=== PATIENT | female | born 1985 | race Caucasian/White ===

== ENCOUNTER 2024-07-01 11:05 | Emergency (ER) | payer MEDICARE, MEDICAID, SELFPAY ==
[2024-07-01 11:07] VITALS: BP 110/71; PULSE 71; RESP 13; TEMP 36.7; O2SAT 97; BMI 19.5
[2024-07-01 11:30] VITALS: BP 117/52; PULSE 62; O2SAT 97
[2024-07-01 11:50] LABS: Microscopic, Urine URINE MICROSCOPIC (MICROSCOPIC)
[2024-07-01 11:51] LABS: Appearance,Urine CLEAR (Clear); Bilirubin,Urine Negative (Negative); Blood, Urine TRACE-I (Negative); Color,Urine YELLOW (Yellow); Glucose,Urine (UA) Negative (Negative); Ketones,Urine Negative (Negative); Leukocyte Esterase,Urine 1+ (Negative); Nitrate,Urine POSITIVE (Negative); PH,Urine 6.5 (5.0-8.5); Protein,Urine TRACE (Negative)
[2024-07-01 11:53] LABS: Urine Pregnancy, HCG Qual. Negative (Negative)
[2024-07-01] MEDS: ONDANSETRON 4MG/2ML VIAL 4 MG IV (11:55)
[2024-07-01] MEDS: KETOROLAC 30MG/ML VIAL 15 MG IV (11:55)
[2024-07-01 11:57] LABS: Albumin Level 3.6 g/dl (3.5-5.0); Chloride 106 mmol/L (98-107); Sodium 138 mmol/L (136-145)
[2024-07-01 11:58] LABS: Basophils % 0.8 % (0.1-2.0); Hematocrit 34.4 % (37.0-47.0); Hemoglobin 11.6 g/dL (12.2-16.2); Lymphocytes # 2.7 K/mm3 (0.7-4.5); Lymphocytes % 50.4 % (10-50); Mean Corpuscular HGB Conc 33.9 g/dL (31.8-35.4); Mean Corpuscular Hemoglobin 31.2 pg (27.0-31.2); Mean Corpuscular Volume 91.9 fl (81-99); Mean Platelet Volume 7.6 fl (7.4-10.4); Monocytes # 0.2 K/mm3 (0.1-1.0); Monocytes % 4.4 % (1.7-9.3); Neutrophils # 2.4 K/mm3 (1.8-7.8); Neutrophils % 44.4 % (37.0-80.0); Platelet Count 184 K/mm3 (142-424); Potassium 3.9 mmoL/L (3.5-5.1); Red Blood Count 3.74 M/mm3 (4.20-5.40); Red Cell Distribution Width 14.1 % (11.5-17.5); White Blood Count 5.3 K/mm3 (4.8-10.8)
[2024-07-01 12:00] VITALS: BP 108/64; PULSE 51; O2SAT 99
[2024-07-01 12:00] LABS: Alanine Aminotransferase 27 U/L (12-78); Albumin/Globulin Ratio 1.5 (1.1-1.8); Alkaline Phosphatase 82 U/L (38-126); Anion Gap 8.9 mEq/L (5-15); Aspartate Amino Transferase 41 U/L (14-36); Bilirubin,Total 0.9 mg/dl (0.2-1.3); Blood Urea Nitrogen 14 mg/dl (7-17); Carbon Dioxide 27 mmol/L (22.0-30.0); Creatinine Clearance Estimated 76 mL/min (50-200); Estimated Glomerular Filt Rate 92 ml/min (>60); GFR (African American) 112 ML/MIN (>60); Globulin 2.4 g/dL (1.3-3.2)
[2024-07-01 12:01] LABS: Calcium 8.5 mg/dl (8.4-10.2); Glucose 96 mg/dl (74-100)
[2024-07-01 12:04] LABS: Bacteria,Urine 4+ /lpf
[2024-07-01 12:10] LABS: MANUAL DIFFERENTIAL MANUAL DIFFERENTIAL (MANUAL DIFF)
[2024-07-01] MEDS: CEFDINIR 300MG CAPSULE 300 MG PO (12:26)
[2024-07-01 12:30] VITALS: BP 111/69; PULSE 46; O2SAT 100
[2024-07-01 12:32] VITALS: BP 111/69; PULSE 50; RESP 20; TEMP 36.7; O2SAT 99
[2024-07-01 12:36] LABS: Lymphocytes % 56 % (10-50); Monocytes % 5 % (2-9); Neutrophils % 39 % (42-76); Total Cells Counted 100
[2024-07-01 12:37] LABS: Platelet Estimate Normal; RBC Morphology Normal
--- NOTE | 2024-07-01 13:19 | HMH.EDGENADL ---
Discharge Plan Disposition Patient Disposition: Home, Self-Care Condition: Good Prescriptions Prescriptions: New ondansetron 4 mg tablet,disintegrating 4 mg PO Q8H PRN (Reason: nausea and vomiting) 4 Days Qty: 12 0RF cefdinir 300 mg capsule 300 mg PO BID 10 Days Qty: 20 0RF Referrals Follow up/Referrals: Provider,Referral, [Primary Care Provider] - See instructions Activity Restrictions/Add. Instructions Additional Instructions/Restrictions: You were evaluated in the emergency department today and diagnosed with a urinary tract infection. Please tow picker your prescription for antibiotics and take the full course as prescribed. Take Tylenol and ibuprofen as well as the Azo as needed for symptoms. Hydrate. dietary supervisor your prescription for Zofran and take as needed for nausea and vomiting. Return to the emergency department for new or worsening symptoms. Clinical Impressions Clinical Impression: UTI (urinary tract infection) Stand Alone Forms Stand Alone Forms: Work/School Release Instructions Patient Instructions: DI for Urinary Tract Infection (UTI) Print Language Print Language: Welsh Discharge ED Provider: Dawna Blanchard General Adult HPI General Chief complaint: Urogenital-Female Stated complaint: pain R side neck and lower back nausea possible UT Time Seen by Provider: 07/01/24 11:36 Mode of Arrival: Ambulatory Source of Information: Patient Limitations: No Limitations Description of Symptoms (Recalled from ER Triage Doc. by RN): pt presents to ED with c/o burning with urination ongoing for the past week. pt had gastric bypass surgery approx 1 year ago, and since has had issue with staying hydrated, pt states that she has been drinking less water than usual but no real reason. History of Present Illness HPI narrative: This patient is a 39-year-old female who has a history of bariatric surgery presenting to the emergency department for evaluation with concern for burning when she pees. She notes that this started a week ago. She states she picked up Azo and has been taking it, but it only helps temporarily and then the symptoms come back. She also notes some low back pain that is across the middle of her back and nausea. No fevers, chills, or other concerns. Her last dose of Azo was last night. Related Data Previous Rx's ?Medication ?Instructions ?Recorded cefdinir 300 mg capsule 300 mg PO BID 10 days #20 caps 07/01/24 ondansetron 4 mg disintegrating 4 mg PO Q8H PRN nausea and 07/01/24 tablet vomiting 4 days #12 tabs Allergies Allergy/AdvReac Type Severity Reaction Status Date / Time aspirin Allergy Verified 07/01/24 11:20 NSAIDS (Non-Steroidal Allergy Verified 07/01/24 11:20 Anti-Inflamma PFSH [facility] Disclaimer: The information contained in this section may have been updated after the patient was seen, as this information can be updated by other users. Social History Smoking Status: Never smoker alcohol intake: never current occupational status: employed Travel in the last 8 weeks: None ROS Obtained: Yes All systems reviewed & no additional complaints except as documented Physical Exam General General appearance: alert and in no apparent distress Head Head exam: atraumatic and normocephalic Eye Eye exam: Present normal appearance, PERRL and EOMI ENT ENT exam: Present normal exam, normal oropharynx, mucous membranes moist and normal external ear exam Neck Neck exam: Present normal inspection, full ROM and trachea midline; Absent tenderness Chest Chest inspection: Present normal inspection and symmetric chest wall rise; Absent tenderness Respiratory Respiratory exam: Present normal lung sounds bilaterally; Absent respiratory distress, wheezes, stridor or accessory muscle use Cardiovascular Cardiovascular exam: Present regular rate and normal rhythm Abdominal Exam Abdominal exam: Present soft; Absent distention, tenderness or guarding Extremities Exam Extremities exam: Present normal inspection, full ROM and normal capillary refill; Absent tenderness or edema Back Exam Back exam: Present normal inspection and full ROM; Absent tenderness Neurological Exam Neurological exam: Present alert, oriented X3, CN II-XII intact and normal gait; Absent motor sensory deficit Psychiatric Psychiatric exam: Present normal affect and normal mood Skin Skin exam: Present warm and dry Medical Decision Making Medical Records Medical records reviewed: Yes I reviewed the patient's medical records. Screening: Per USPSTF and CDC recommendations, given the prevalence of disease in our region, it is our hospital?s policy to screen for HIV and viral Hepatitis for all patients aged 18 and over and those with ongoing risk factors. Dejon Inquiry Pt receiving controlled substance: No Vital Signs: 07/01/24 11:07 07/01/24 11:30 07/01/24 12:00 Temperature 98.0 F Temperature Source Oral Pulse Rate 62 51 L Pulse Rate [Left Radial] 71 Respiratory Rate 13 Blood Pressure 117/52 L 108/64 L Blood Pressure [Right Arm] 110/71 Blood Pressure Mean 73 Blood Pressure Mean [Right Arm] 84 02 Sat by Pulse Oximetry 97 97 99 Oxygen Delivery Method Room Air Room Air 07/01/24 12:30 07/01/24 12:32 Temperature 98.0 F Temperature Source Pulse Rate 46 L 50 L Pulse Rate [Left Radial] Respiratory Rate 20 Blood Pressure 111/69 111/69 Blood Pressure [Right Arm] Blood Pressure Mean 80 Blood Pressure Mean [Right Arm] 02 Sat by Pulse Oximetry 100 Oxygen Delivery Method Room Air Room Air Lab Data Lab results reviewed: Yes I reviewed the patient's lab results. Lab Results 07/01/24 11:08: Urine Color Yellow, Urine Appearance Clear, Urine pH 6.5, Ur Specific [place] 1.010, Urine Protein Trace, Urine Glucose (UA) Negative, Urine Ketones Negative, Urine Blood Trace-i, Urine Nitrate Positive, Urine Bilirubin Negative, Urine Urobilinogen 1.0, Ur Leukocyte Esterase 1+ A, Urine RBC 5-10, Urine WBC 10-20, Ur Squamous Epith Cells 3-5, Urine Bacteria 4+, Urine HCG, Qual Negative 07/01/24 11:20: WBC 5.3, RBC 3.74 L, Hgb 11.6 L, Hct 34.4 L, MCV 91.9, MCH 31.2, MCHC 33.9, RDW 14.1, Plt Count 184, MPV 7.6, Neut % (Auto) 44.4, Lymph % (Auto) 50.4 H, Taliaferro % (Auto) 4.4, Eos % (Auto) 0.0 L, Baso % (Auto) 0.8, Neut # (Auto) 2.4, Lymph # (Auto) 2.7, Tal[place]ferro # (Auto) 0.2, Eos # (Auto) 0.0, Baso # (Auto) 0.0, Total Counted 100, Neutrophils % (Manual) 39 L, Lymphocytes % (Manual) 56 H, Monocytes % (Manual) 5, Platelet Estimate Normal, RBC Morphology Normal, Sodium 138, Potassium 3.9, Chloride 106, Carbon Dioxide 27, Anion Gap 8.9, BUN 14, Creatinine 0.70, Estimated Creat Clear 76, Estimated GFR 92, Est GFR ( Amer) 112, Glucose 96, Calcium 8.5, Total Bilirubin 0.9, AST 41 H, ALT 27, Alkaline Phosphatase 82, Total Protein 6.0 L, Albumin 3.6, Globulin 2.4, Albumin/Globulin Ratio 1.5 07/01/24 11:20 07/01/24 11:20 Orders (Tests/Meds): ED MEDICATIONS Discontinued Medications Generic Name Dose Route Start Last Admin Trade Name Eugenio PRN Reason Stop Dose Admin Cefdinir 300 mg 07/01/24 12:20 07/01/24 12:26 Cefdinir 300mg Capsule PO 07/01/24 12:21 300 mg ONCE ONE Administration Ketorolac Tromethamine 15 mg 07/01/24 11:51 07/01/24 11:55 Ketorolac 30mg/Ml Vial IV 07/01/24 11:52 15 mg ONCE ONE Administration Ondansetron HCl 4 mg 07/01/24 11:51 07/01/24 11:55 Ondansetron 4mg/2ml Vial IV 07/01/24 11:52 4 mg ONCE ONE Administration ORDERS Category Date Time Status Complete Blood Count Auto Diff Stat Lab 07/01/24 11:20 Completed Comprehensive Metabolic Panel Stat Lab 07/01/24 11:20 Completed UA [Urinalysis and Microscopic] Stat Lab 07/01/24 11:08 Completed Urine , HCG Qual. Stat Lab 07/01/24 11:08 Completed Urine Culture Stat Micro 07/01/24 11:08 Received Medical Decision Narrative: In summary, this patient is a 39-year-old female presenting to the Emergency Department for evaluation of burning when she pees and increased frequency. Differential diagnoses considered include but are not limited to cystitis, pyelonephritis, ureterolithiasis. Ruling out the most morbid conditions drove assessment. On exam, the patient is lying in bed in no acute distress with benign abdominal exam. No significant CVA tenderness. She does have low back pain across her lower back, but nothing localizes to one side. No fevers, chills, or other concerns. I feel she likely has a urinary tract infection. Urinalysis was obtained and is consistent with this. She could still have some Azo in her system, but based on her symptoms, we will plan to treat. Urine culture was sent and is pending. Basic labs were obtained including CBC and CMP which are reassuring with no significant change in kidney function and no significant leukocytosis. Given this, I feel the patient is appropriate for discharge home with prescriptions for cefdinir and Zofran to treat urinary tract infection. She was given strict return precautions and instructions for close follow-up. Patient was discharged after all questions were answered. Critical Care Critical Care Time Critical Care Time: No
== END 2024-07-01 12:33 | disposition home or self-care (01) ==
PROVIDERS: Emergency Provider Emergency Medicine
DX: N39.0 Urinary tract infection, site not specified (principal); R30.9 Painful micturition, unspecified; M54.50 Low back pain, unspecified; R11.0 Nausea; M54.2 Cervicalgia
CPT/HCPCS: 80053; 81001; 81025; 85007; 85025; 85027; 87086; 87088; 87186; 96374; 96375; 99283; J1885; J2405

== ENCOUNTER 2024-07-30 10:44 | Outpatient (POV) | payer MEDICARE, MEDICAID, SELFPAY ==
[2024-07-30 11:38] VITALS: BP 138/69; PULSE 61; RESP 16; O2SAT 100; BMI 18.9
--- NOTE | 2024-07-30 12:16 | EXP.PAIN.OV ---
HPI Data of Consult Patient: new to practice Consult date: 07/30/24 Requesting Physician: Dawna Hendricks APRN Primary Care Provider: Referral Provider, MD Consult Narrative Reason for consult: Chronic neck and back pain History of present illness: Ms. Daniels is a 39 year old female who presents today as a new patient. She is a referral from [facility]. Today she rates her pain a 10 out of 10. Patient states she has chronic pain throughout her neck mid back and low back patient states this is going on for years and progressively worsen. Patient describes it as a constant aching, throbbing sensation. She states she has tried oral medications including gabapentin along with heat and ice and topicals. Patient states she has also seen neurosurgery in [place] and that she was not a surgical candidate. Patient has tried multiple injections from other pain management facilities in out of [place] and states they never gave significant relief. Patient states that she was told multiple times that the pain pump was her best option however where she is recently moved she is trying to reestablish care with the pain clinic and would like to proceed forward with possibility of a pump. Patient does have a history of fibromyalgia, bipolar and multiple personality disorder. Patient has also had gastric bypass surgery in the past. Patient states all of her imaging was done at [facility]. Her Dejon does not have any scheduled medications on that due to previous [place] residence. CC: Dawna Hendricks APRN [facility] Disclaimer: The information contained in this section may have been updated after the patient was seen, as this information can be updated by other users. Medical History (Updated 07/30/24 @ 12:25 by Dawna Hendricks APRN) Bipolar 1 disorder Surgical History (Updated 07/30/24 @ 11:46 by Stacy Nj RN) Gastric bypass status for obesity Social History (Updated 07/30/24 @ 11:46 by Stacy Nj RN) Smoking Status: Never smoker alcohol intake: never substance use type: marijuana current occupational status: other Travel in the last 8 weeks: None Review of Systems Review of Systems Review of systems:: pertinent systems reviewed and negative unless documented below Review of systems (narrative): Review of Systems: General: No recent weight changes, no fever, no sleep disturbances Respiratory: No cough, no shortness of air, no recurring pulmonary infections Cardiovascular/peripheral vascular: No chest pain, no palpitations, no edema, no shortness of breath Gastrointestinal: No new onset incontinence, normal bowel movements reported Genitourinary: No new onset incontinence Musculoskeletal: Neck pain, low back pain Psychiatric: [Normal mood/affect] Neurological: [Denies weakness in extremities], [denies balance issues] Meds Home Medications and Allergies Home Medications ?Medication ?Instructions ?Recorded ?Confirmed ?Type duloxetine 30 mg capsule,delayed 90 mg PO DAILY 07/30/24 07/30/24 History release lamotrigine 25 mg tablet 50 mg PO BID mood 07/30/24 07/30/24 History New Prescriptions to Start Prescriptions: Allergies Allergy/AdvReac Type Severity Reaction Status Date / Time aspirin Allergy Verified 07/01/24 11:20 NSAIDS (Non-Steroidal AdvReac Verified 07/30/24 11:48 Anti-Inflamma Objective Vital signs: Pulse Resp BP Pulse Ox O2 Del Method 61 16 138/69 100 Room Air 07/30/24 11:38 07/30/24 11:38 07/30/24 11:38 07/30/24 11:38 07/30/24 11:38 Narrative: Physical Exam: General: Alert and oriented x3, no acute distress, pleasant and cooperative Lungs: Respirations even and unlabored, symmetrical chest expansion Eyes: PERRL Musculoskeletal: Flexion and extension of lumbar [spine] somewhat guarded secondary to pain, extreme point tenderness along lower lumbar spine Neurological: Speech clear, no gross sensory deficit Assessment and Plan *Assessment and plan (1) Chronic pain syndrome: Status: Acute Category: Medical Code(s): G89.4 - Chronic pain syndrome (2) Neck pain: Status: Acute Category: Medical Code(s): M54.2 - Cervicalgia (3) Back pain: Status: Acute Category: Medical Code(s): M54.9 - Dorsalgia, unspecified Plan Patient has tried and failed conservative therapy including multiple injections in the past from previous pain management's with minimal improvement. I did discuss with the patient that she may be a potential candidate of a intrathecal pain pump trial. Risk and benefits and educational handouts were given at today's visit. She would like to proceed forward with this plan of care. Patient will be scheduled for a psychological evaluation and if she is deemed an appropriate candidate we will proceed forward with the pump trial at a later date. Patient will return to clinic in 1 month for reevaluation of symptoms and plan of care. Patient has been instructed to contact the clinic with any concerns before the next appointment. Dr. Duncan has reviewed this note and agrees with this plan of care. This note was dictated using voice recognition software and make contain errors or omissions. All injections are used with Lidocaine or Bupivacaine and Depo Medrol.
== END 2024-07-30 23:59 | disposition home or self-care (01) ==
LOC: SC.PAIN 10:47
PROVIDERS: Visit Provider Nurse Practitioner Family
DX: G89.4 Chronic pain syndrome (principal); M54.2 Cervicalgia; M54.9 Dorsalgia, unspecified
CPT/HCPCS: 99202; G0463

== ENCOUNTER 2024-08-28 13:42 | Outpatient (POV) | payer MEDICARE, MEDICAID, SELFPAY ==
[2024-08-28 14:47] VITALS: BP 125/59; PULSE 69; RESP 16; TEMP 36.4; O2SAT 98; BMI 19.2
--- NOTE | 2024-08-28 15:24 | EXP.PAIN.SOA ---
[facility] Disclaimer: The information contained in this section may have been updated after the patient was seen, as this information can be updated by other users. Medical History Bipolar 1 disorder Surgical History Gastric bypass status for obesity Social History Smoking Status: Never smoker alcohol intake: never substance use type: marijuana current occupational status: other Travel in the last 8 weeks: None PM Subjective & Objective Subjective Subjective:: Patient is a pleasant 39-year-old female who presents today for follow-up of her psychological evaluation. Today she rates her pain a 10 out of 10. She denies any new trauma or injury. She states the pain is just constant as she stated at our last visit. Patient did complete her psychological her evaluation and was wanting to proceed forward with the pump trial. Her Dejon has been reviewed and is appropriate. Review of Systems: General: No recent weight changes, no fever, no sleep disturbances Respiratory: No cough, no shortness of air, no recurring pulmonary infections Cardiovascular/peripheral vascular: No chest pain, no palpitations, no edema, no shortness of breath Gastrointestinal: No new onset incontinence, normal bowel movements reported Genitourinary: No new onset incontinence Musculoskeletal: Low back pain, neck pain Psychiatric: [Normal mood/affect] Neurological: [Denies weakness in extremities], [denies balance issues] Pain at rest (0-10 scale): 10 Objective Objective:: Physical Exam: General: Alert and oriented x3, no acute distress, pleasant and cooperative Lungs: Respirations even and unlabored, symmetrical chest expansion Eyes: PERRL Musculoskeletal: Flexion and extension of lumbar [spine] somewhat guarded secondary to pain, [antalgic gait noted] Neurological: Speech clear, no gross sensory deficit Has patient had previous pain injection?: No Conservative treatment options previously tried: Home exercise plan Length of treatment: Longer than 12 weeks Meds Home Medications and Allergies Home Medications ?Medication ?Instructions ?Recorded ?Confirmed ?Type duloxetine 30 mg capsule,delayed 90 mg PO DAILY 07/30/24 08/28/24 History release lamotrigine 25 mg tablet 50 mg PO BID mood 07/30/24 08/28/24 History New Prescriptions to Start Prescriptions: Allergies Allergy/AdvReac Type Severity Reaction Status Date / Time aspirin Allergy Verified 07/01/24 11:20 NSAIDS (Non-Steroidal AdvReac Verified 07/30/24 11:48 Anti-Inflamma Assessment and Plan *Assessment and plan (1) Back pain: Status: Acute Category: Medical Code(s): M54.9 - Dorsalgia, unspecified (2) Neck pain: Status: Acute Category: Medical Code(s): M54.2 - Cervicalgia Plan Patient was counseled that the psychological evaluation is not yet in our computer system however the provider did call our office to let us know that she did not pass this evaluation. Patient was counseled that I cannot give specifics on what all concerns she had however I would recommend she follow-up with her primary care to see if they can make any adjustments or additions to her current medications that she takes for depression, anxiety and bipolar. Patient was counseled that we can always revisit or try again for the psychological evaluation in 6 months. Patient was counseled that we can try injection therapy however at our last visit she did tell us that she was not interested in this option. Patient does still state that she does not want to try this again as she has been through all this in the past. Patient has also had gastric bypass and cannot have any NSAIDs. We did discuss over Tylenol arthritis and things such as lidocaine patches however she says that she has tried that all with no additional improvement. Patient was counseled that we will follow-up with her after she has had updated appointments with her primary care and see if there were any medication changes. Patient will return to clinic in 3 months for reevaluation of symptoms and plan of care. Patient agrees with this plan. Patient has been instructed to contact the clinic with any concerns before the next appointment. Dr. Duncan has reviewed this note and agrees with this plan of care. This note was dictated using voice recognition software and make contain errors or omissions. All injections are used with Lidocaine, Bupivacaine and Depo Medrol. Occasionally urine drug screen is needed to verify patient's compliance with our office pain contract. This is ordered based off specific treatments related to chronic pain with the potential to abuse certain medications.
== END 2024-08-28 23:59 | disposition home or self-care (01) ==
PROVIDERS: PCP Nurse Practitioner Family; Visit Provider Nurse Practitioner Family
DX: M54.9 Dorsalgia, unspecified (principal); M54.2 Cervicalgia
CPT/HCPCS: 99212; G0463

== ENCOUNTER 2024-10-01 14:15 | Outpatient (CLI) | payer MEDICARE, MEDICAID, SELFPAY ==
[2024-10-01 15:13] LABS: Basophils % 0.5 % (0.1-2.0); Eosinophils % 0.2 % (0.1-12.0); Hematocrit 42.7 % (37.0-47.0); Hemoglobin 14.1 g/dL (12.2-16.2); Lymphocytes # 2.8 K/mm3 (0.7-4.5); Lymphocytes % 48.9 % (10-50); Mean Corpuscular Hemoglobin 30.9 pg (27.0-31.2); Mean Corpuscular Volume 93.4 fl (81-99); Mean Platelet Volume 9.9 fl (7.4-10.4); Monocytes # 0.4 K/mm3 (0.1-1.0); Neutrophils # 2.6 K/mm3 (1.8-7.8); Neutrophils % 44.2 % (37.0-80.0); Platelet Count 193 K/mm3 (142-424); Red Blood Count 4.57 M/mm3 (4.20-5.40); Red Cell Distribution Width 12.9 % (11.5-17.5); White Blood Count 5.8 K/mm3 (4.8-10.8)
[2024-10-01 15:31] LABS: D-Dimer 0.48 ug/mL (0.0-0.5)
[2024-10-01 15:58] LABS: Albumin Level 4.9 g/dl (3.5-5.0); Chloride 102 mmol/L (98-107); Sodium 141 mmol/L (136-145)
[2024-10-01 15:59] LABS: Potassium 4.4 mmoL/L (3.5-5.1)
[2024-10-01 16:01] LABS: Alanine Aminotransferase 55 U/L (12-78); Anion Gap 13.4 mEq/L (5-15); Aspartate Amino Transferase 80 U/L (14-36); Bilirubin,Unconjugated 1.5 mg/dL (0.0-1.1); Blood Urea Nitrogen 16 mg/dl (7-17); Carbon Dioxide 30 mmol/L (22.0-30.0); Cholesterol 170 mg/dl (140-200); Estimated Glomerular Filt Rate 110 ml/min (>60); GFR (African American) 133 ML/MIN (>60); Total Protein,Serum 7.4 g/dl (6.3-8.2); Triglycerides 98 mg/dl (30-150); VLDL Cholesterol 20 mg/dL (0-40)
[2024-10-01 16:02] LABS: Alkaline Phosphatase 100 U/L (38-126); Bilirubin,Indirect 1.5 mg/dL (0.0-0.9); Bilirubin,Total 1.5 mg/dl (0.2-1.3); Calcium 9.6 mg/dl (8.4-10.2); Chol/HDL Ratio 1.8 (1-3.5); Glucose 80 mg/dl (74-100); HDL Cholesterol 95 mg/dl (40-60); Magnesium 2.2 mg/dl (1.6-2.3)
[2024-10-01 16:12] LABS: NT Pro Brain Natriuretic Pep. 37.9 pg/mL (0-125)
[2024-10-01 16:22] LABS: Free T4 (Free Thyroxine) 1.01 ng/dl (0.78-2.19)
[2024-10-01 16:33] LABS: Thyroid Stimulating Hormone 1.21 uIU/mL (0.465-4.68)
== END 2024-10-01 23:59 | disposition home or self-care (01) ==
LOC: LAB 14:16
PROVIDERS: PCP Nurse Practitioner Family; Visit Provider Internal Medicine
DX: R55 Syncope and collapse (principal); R07.9 Chest pain, unspecified; R06.00 Dyspnea, unspecified; R00.1 Bradycardia, unspecified
CPT/HCPCS: 36415; 80048; 80061; 80076; 83735; 83880; 84439; 84443; 85025; 85378; 93225; 93227

== ENCOUNTER 2024-10-05 10:47 | Outpatient (CLI) | payer MEDICARE, MEDICAID, SELFPAY | END 2024-10-05 23:59 | disposition home or self-care (01) | LOC: RT 10:49 | PROVIDERS: Visit Provider Internal Medicine | DX: R55 Syncope and collapse (principal); R00.1 Bradycardia, unspecified; R06.00 Dyspnea, unspecified; R07.9 Chest pain, unspecified | CPT/HCPCS: 93270 ==

== ENCOUNTER 2024-10-09 08:51 | Outpatient (CLI) | payer MEDICARE, MEDICAID, SELFPAY ==
--- NOTE | 2024-10-09 08:52 | CA_ITS ---
APPROVED REPORT EXAM: Comprehensive 2D, Doppler, and color-flow Echocardiogram Clinical Research Physician: Jade Matthew RDCS Ht: 5 ft 0 in Wt: 97lbs BSA: 1.37 BP: 116/72 mmHg Indications: CP,BRADYCARDIA,SOA M-Mode Dimensions RVDd 1.19 cm (0.9-2.6) LA Diam 3.47 cm (1.9-4.0) LVDd 4.81 cm (3.5-5.7) LVDs 3.39 cm (3.5-5.7) IVSd 0.58 cm (0.6-1.1) PWd 0.64 cm (0.6-1.1) EF (Teich) 56.40% FS 29.50% EDV (Teich) 108.00 mL TAPSE 2.16 (<1.7) ESV (Teich) 47.10 mL LV Diastology E Decel Time 197 (160-240 msec) E/A Ratio 1.6 Mitral Valve MV E Max Leander. 82.0 (40-130 cm/s) MV A Velocity 51.0 (40-130 cm/s) E/A Ratio 1.60 MV PHT 58.0 ms Tricuspid Valve TR P. Velocity 216.00 cm/s RAP Estimate 10.00 mmHg RVSP 28.60 mmHg Left Ventricle The left ventricle is normal size. The left ventricular systolic function is normal. The left ventricular ejection fraction is within the normal range. There is normal left ventricular wall thickness. There is normal LV segmental wall motion. The left ventricular diastolic function is normal. LVEF is 55%. Right Ventricle The right ventricle is normal size. The right ventricular systolic function is normal. Atria Left atrium is mildly dilated. Right atrium is mildly dilated. There is no Doppler evidence of interatrial shunt. Aortic Valve The aortic valve is trileaflet. The aortic valve opens well. There is no aortic valvular stenosis. No aortic regurgitation is present. Mitral Valve The mitral valve is normal in structure. No evidence of mitral valve stenosis. Trace mitral regurgitation. Tricuspid Valve Tricuspid valve is grossly normal in structure and function. Trace tricuspid regurgitation. Pulmonic Valve The pulmonary valve is normal in structure. Mild pulmonic regurgitation. Great Vessels The aortic root is normal in size. The ascending aorta is normal in size. IVC is normal in size and collapses >50% with inspiration. Pericardium There is no pericardial effusion. Other Information Study Quality: Adequate Conclusion Normal biventricular systolic function. Mild PI. Electronically signed by : Angie Lyons MD 10/15/2024 11:09:26
--- NOTE | 2024-10-09 08:52 | CT_ITS ---
APPROVED REPORT Home Health Care Provider: CLINICAL INDICATION Chest Pain TECHNIQUE Image Acquisition: A 128 slice MDCT scanner ([employer] Richmediaa View) was used for data acquisition. A noncontrast coronary calcium scan was performed. A CT attenuation threshold of 130 Hounsfield units (HU) was used for the detection of calcium in contiguous voxels of 1 sq mm in area to be counted as individual lesions. Bolus tracking in the ascending aorta with a threshold of 180 HU was performed. Immediately afterwards, ECG synchronized cardiac CT was then performed from the cardiac base to apex using retrospective gating with ECG tube current modulation. A total of 85 mL of Isovue 370 mg/mL contrast medium was administered at 5 mL/sec followed by a saline flush using a biphasic injection protocol. A tube voltage of 120 KVp was used. The patient received the following medications prior to the cardiac CT. 0.4 mg of sublingual nitroglycerin The average heart rate at the time of acquisition was 55 bpm and regular. Image Reconstruction Transaxial images were reconstructed at 0.67 mm slide thickness. Data was reviewed interactively on an advanced workstation capable of 2 and 3-dimensional displays in all conventional reconstruction formats, including multiplanar reformations, maximum intensity projections, curved multiplanar reformations, and volume rendered reconstructions. When applicable, selected routine images describing the relevant coronary anatomy and pathology were saved and sent to PACS. Complications None Technical Quality Overall image quality was good. Coronary artery opacification was adequate. Total DLP (Dose-Length Product) is 1373.4 mGy-cm. The reported value represents the total of one or more individual components during the CT acquisition of this date and at this time, and as such, the same value may appear in more than one CT report depending on the interpreting/reporting physicians. COMPARISON None FINDINGS CT Coronary Calcium Scoring LMA (Left Main Artery) = 0 LAD (Left Anterior Descending) = 0 LCX (Left Coronary Circumflex) = 0 RCA (Right Coronary Artery) = 0 Total Calcium Score = 0 using the AJ-130 method. The interpretation of the calcium heart score is based on the following continuum*: 0 = no calcified plaque detected (risk of coronary artery disease is very low ??? less than 5%) 1-10 = calcium detected in extremely minimal levels (risk of coronary diseases is still low ??? less than 10%) 11-100 = mild levels of plaque detected with certainty (mild or minimal narrowing of heart arteries is likely) 101-400 = definite,at least moderate levels of plaque detected (relatively high risk of a heart attack within 3-5 years) >401-999 = extensive levels of plaque detected (high risk of heart attack, high levels of vascular disease are present, high likelihood of at least one significant coronary narrowing) *The calcium heart score quantifies the burden of coronary calcification/plaque in the coronary arteries. The calcium heart score is not able to evaluate the presence or burden of non-calcified (i.e. soft) plaque. There is no identifiable calcification in the aortic valve, mitral annulus or mitral valve, pericardium, or myocardium. Coronary CT Angiography The coronary arterial system is right dominant. Quantitative Stenosis Grading: Left Main (LM): The left main originates normally from the left sinus of Valsalva. The LM bifurcates into the left anterior descending artery and left circumflex artery. The LM is patent with no evidence of atherosclerosis. Left Anterior Descending (LAD) and Diagonal Branches: The LAD gives off 2 diagonal branch(es). The LAD and its branches are patent with no evidence of atherosclerosis. There is no evidence of LAD-myocardial bridge. Left Circumflex (LCX) and Obtuse Marginals (OM): The LCX gives off 1 Obtuse Marginal (OM) branch(es). The LCX and its branches are patent with no evidence of atherosclerosis. Right Coronary Artery (RCA): The RCA originates normally from the right sinus of Valsalva. The RCA gives off a posterior descending artery (PDA) and posterolateral (PL) branches. The RCA and its branches are patent with no evidence of atherosclerosis. Non-Coronary Cardiac Findings: Analysis of the left ventricular (LV) structure and function was performed after 3-D reconstruction of the LV from axial images, with user-corrected automatic contouring for assessment of LV volumes and user-defined reconstruction from oblique planes for measurement of 3-D cardiac structure and function. -The left ventricle systolic function is normal. -There is no left atrial appendage filling defect. Two right pulmonary veins and two left pulmonary veins drain normally into the left atrium. -No pericardial thickening or calcification. -Central and branch pulmonary arteries in the [id number] are unremarkable. -Thoracic aorta within the visualized thoracic aortic-branches in the [id number] is unremarkable. Extracardiac Structures No significant extra-cardiac findings. Note, however, that this study is focused on the cardiac findings. IMPRESSION -Absence of coronary calcification with an Agatston score = 0 using the AJ-130 method. -No evidence of significant flow-limiting atherosclerosis of the coronary arteries. -CAD-RADS 0. Management recommendations per ACC/AHA guidelines*, as clinically appropriate. *Recommendations: CAD RADS 0: Reassurance. Consider non-atherosclerotic causes of chest pain. CAD RADS 1: Consider non-atherosclerotic causes of chest pain. Consider preventive therapy and risk factor modification. CAD RADS 2: Consider non-atherosclerotic causes of chest pain. Consider preventive therapy and risk factor modification, particularly for patients with nonobstructive plaque in multiple segments. CAD RADS 3: Consider further functional testing. Consider symptom-guided anti-ischemic and preventive pharmacotherapy as well as risk factor modification per published guideline statements. CAD RADS 4A: Consider further functional testing or invasive coronary angiography with revascularization per published guideline statements. Consider symptom-guided anti-ischemic and preventive pharmacotherapy as well as risk factor modification per published guideline statements. CAD RADS 4B: Invasive coronary angiography recommended with revascularization per published guideline statements. Consider symptom-guided anti-ischemic and preventive pharmacotherapy as well as risk factor modification per published guideline statements. CAD RADS 5: Consider invasive angiography and/or viability assessment with revascularization per published guideline statements. Consider symptom-guided anti-ischemic and preventive pharmacotherapy as well as risk factor modification per published guideline statements. CRITICAL RESULT None COMMUNICATION Per this written report The coronary and cardiac findings of this CCTA were reviewed, reported, and signed by Duy Lyons MD ([employer]) Conclusion Electronically signed by : Angie Lyons MD 10/12/2024 13:59:34
[2024-10-09 09:03] VITALS: BMI 18.5
[2024-10-09 09:06] VITALS: BP 122/70; PULSE 66; O2SAT 99
[2024-10-09 09:22] VITALS: BP 123/83; PULSE 54; RESP 18; O2SAT 100
[2024-10-09] MEDS: NITROGLYCERIN 0.4MG SL TABLET SL (09:22)
[2024-10-09 09:25] VITALS: BP 103/72; PULSE 62; RESP 18; O2SAT 100
[2024-10-09 09:28] VITALS: BP 94/62; PULSE 74; RESP 20; O2SAT 100
[2024-10-09] MEDS: 0.9 % SODIUM CHLORIDE 50 ML VIAL IV (09:33)
[2024-10-09] MEDS: IOPAMIDOL-370 (76%);100ML BOTTLE 85 ML IV (09:33)
[2024-10-09 09:45] VITALS: BP 112/73; PULSE 58; RESP 18; O2SAT 99
== END 2024-10-09 09:45 | disposition home or self-care (01) ==
PROVIDERS: PCP Nurse Practitioner Family; Visit Provider Internal Medicine
DX: R07.9 Chest pain, unspecified (principal); R55 Syncope and collapse; R06.00 Dyspnea, unspecified; R00.1 Bradycardia, unspecified
CPT/HCPCS: 75574; 93306; Q9967

== ENCOUNTER 2024-10-29 15:21 | Outpatient (CLI) | payer MEDICARE, MEDICAID, SELFPAY ==
[2024-10-29 16:31] LABS: Basophils % 0.3 % (0.1-2.0); Eosinophils % 0.2 % (0.1-12.0); Hematocrit 34.7 % (37.0-47.0); Hemoglobin 11.2 g/dL (12.2-16.2); Lymphocytes # 3.2 K/mm3 (0.7-4.5); Lymphocytes % 48.9 % (10-50); Mean Corpuscular HGB Conc 32.3 g/dL (31.8-35.4); Mean Corpuscular Hemoglobin 30.6 pg (27.0-31.2); Mean Corpuscular Volume 94.8 fl (81-99); Mean Platelet Volume 9.7 fl (7.4-10.4); Monocytes # 0.5 K/mm3 (0.1-1.0); Monocytes % 7.7 % (1.7-9.3); Neutrophils # 2.8 K/mm3 (1.8-7.8); Neutrophils % 42.7 % (37.0-80.0); Platelet Count 230 K/mm3 (142-424); Red Blood Count 3.66 M/mm3 (4.20-5.40); Red Cell Distribution Width 12.6 % (11.5-17.5); White Blood Count 6.6 K/mm3 (4.8-10.8)
[2024-10-29 16:39] LABS: Albumin Level 4.3 g/dl (3.5-5.0); Chloride 106 mmol/L (98-107)
[2024-10-29 16:40] LABS: Sodium 141 mmol/L (136-145)
[2024-10-29 16:42] LABS: Alanine Aminotransferase 55 U/L (12-78); Aspartate Amino Transferase 49 U/L (14-36); Blood Urea Nitrogen 19 mg/dl (7-17); Carbon Dioxide 30 mmol/L (22.0-30.0); Estimated Glomerular Filt Rate 69 ml/min (>60); GFR (African American) 83 ML/MIN (>60)
[2024-10-29 16:43] LABS: Albumin/Globulin Ratio 1.9 (1.1-1.8); Alkaline Phosphatase 70 U/L (38-126); Bilirubin,Total 1.3 mg/dl (0.2-1.3); Calcium 8.7 mg/dl (8.4-10.2); Globulin 2.3 g/dL (1.3-3.2); Glucose 89 mg/dl (74-100); Total Protein,Serum 6.6 g/dl (6.3-8.2)
[2024-10-29 17:30] LABS: HIV Combo NEGATIVE (Negative)
[2024-10-30 08:19] LABS: HBsAg Screen Negative (Negative); HCV Ab Non Reactive (Non Reactive); Hep A Ab, IGM Negative (Negative); Hep B Core Ab, IgM Negative (Negative)
[2024-10-31 20:16] LABS: QuantiFERON-TB Gold Plus Negative (Negative)
== END 2024-10-29 23:59 | disposition home or self-care (01) ==
PROVIDERS: PCP Nurse Practitioner Family; Visit Provider Nurse Practitioner Family
DX: L40.0 Psoriasis vulgaris (principal); Z79.899 Other long term (current) drug therapy
CPT/HCPCS: 36415; 80053; 80074; 85025; 86480; 86803; 87389

== ENCOUNTER 2024-10-30 08:17 | Outpatient (CLI) | payer MEDICARE, MEDICAID, SELFPAY ==
[2024-10-30 08:23] LABS: Anti-Centromere B Antibodies ND; Anti-DNA (DS) Ab Qn ND; Anti-Jo-1 ND; Antichromatin Antibodies ND; Antiscleroderma-70 Antibodies ND; RNP Antibodies ND; Sjogren's Anti-SS-A ND; Sjogren's Anti-SS-B ND
[2024-10-30 08:46] LABS: Basophils % 0.4 % (0.1-2.0); Eosinophils % 0.3 % (0.1-12.0); Hematocrit 36.3 % (37.0-47.0); Hemoglobin 11.8 g/dL (12.2-16.2); Lymphocytes # 4.1 K/mm3 (0.7-4.5); Lymphocytes % 60.9 % (10-50); Mean Corpuscular HGB Conc 32.5 g/dL (31.8-35.4); Mean Corpuscular Hemoglobin 30.5 pg (27.0-31.2); Mean Corpuscular Volume 93.8 fl (81-99); Mean Platelet Volume 9.7 fl (7.4-10.4); Monocytes # 0.4 K/mm3 (0.1-1.0); Neutrophils # 2.1 K/mm3 (1.8-7.8); Neutrophils % 32.1 % (37.0-80.0); Platelet Count 209 K/mm3 (142-424); Red Blood Count 3.87 M/mm3 (4.20-5.40); Red Cell Distribution Width 12.8 % (11.5-17.5); White Blood Count 6.7 K/mm3 (4.8-10.8)
[2024-10-30 08:49] LABS: MANUAL DIFFERENTIAL MANUAL DIFFERENTIAL (MANUAL DIFF)
[2024-10-30 08:52] LABS: INR 0.91 (0.9-1.1); Prothrombin Time 10.1 seconds (9.2-12.1)
[2024-10-30 09:20] LABS: Lymphocytes % 65 % (10-50); Monocytes % 6 % (2-9); Neutrophils % 29 % (42-76); Total Cells Counted 100
[2024-10-30 09:21] LABS: Platelet Estimate Normal; RBC Morphology Normal
[2024-10-30 09:56] LABS: Albumin Level 4.5 g/dl (3.5-5.0); Chloride 103 mmol/L (98-107); Potassium 4.8 mmoL/L (3.5-5.1); Sodium 138 mmol/L (136-145)
[2024-10-30 09:58] LABS: Alanine Aminotransferase 52 U/L (12-78); Aspartate Amino Transferase 39 U/L (14-36); Blood Urea Nitrogen 20 mg/dl (7-17); Estimated Glomerular Filt Rate 79 ml/min (>60); GFR (African American) 96 ML/MIN (>60)
[2024-10-30 09:59] LABS: Alkaline Phosphatase 75 U/L (38-126); Anion Gap 6.8 mEq/L (5-15); Bilirubin,Total 1.4 mg/dl (0.2-1.3); Calcium 9.3 mg/dl (8.4-10.2); Carbon Dioxide 33 mmol/L (22.0-30.0); Globulin 2.2 g/dL (1.3-3.2); Glucose 84 mg/dl (74-100); Iron 139 ug/dL (37-170); Total Protein,Serum 6.7 g/dl (6.3-8.2)
[2024-10-30 10:08] LABS: Total Iron Binding Capacity 381 ug/dL (265-497)
[2024-10-30 10:33] LABS: Ferritin 14.3 ng/ml (6.24-137)
[2024-10-31 09:14] LABS: Ceruloplasmin 26.6 mg/dL (19.0-39.0); HBsAg Screen Negative (Negative); HCV Ab Non Reactive (Non Reactive); Hep A Ab, IGM Negative (Negative); Hep B Core Ab, IgM Negative (Negative); Immunoglobulin A, Qn 364 mg/dL (87-352); Immunoglobulin G, Qn 913 mg/dL (586-1602); Immunoglobulin M, Qn 183 mg/dL (26-217)
[2024-10-31 15:13] LABS: Actin (Smooth Muscle) Antibody 2 Units (0-19); Mitochondrial (M2) Antibody <20.0 Units (0.0-20.0)
[2024-10-31 16:20] LABS: Deamidated Gliadin Abs, IgA 4 units (0-19); Deamidated Gliadin Abs, IgG 2 units (0-19); Tissue Transglutaminase IgA Ab <2 U/mL (0-3); Tissue Transglutaminase IgG Ab 3 U/mL (0-5)
[2024-11-02 14:20] LABS: Antinuclear Antibodies (ANA) Negative (Negative); Liver-Kidney Microsomal Ab <1.0 Units (0.0-20.0)
[2024-11-02 19:11] LABS: Angiotensin Converting Enzyme 63 U/L (14-82)
[2024-11-03 09:12] LABS: ALT (SGPT) P5P 51 IU/L (0-40); AST (SGOT) P5P 32 IU/L (0-40); Alpha 2-Macroglobulins, Qn 235 mg/dL (110-276); Apolipoprotein A-1 207 mg/dL (116-209); Bilirubin, Total 0.9 mg/dL (0.0-1.2); Cholesterol, Total 173 mg/dL (100-199); Endomysial IgA Antibody Negative (Negative); Fibrosis Score 0.18 (0.00-0.21); GGT 15 IU/L (0-60); Glucose 84 mg/dL (70-99); Haptoglobin 52 mg/dL (42-296); Steatosis Score 0.16 (0.00-0.40); Triglycerides 98 mg/dL (0-149)
[2024-11-04 03:36] LABS: Alpha-1-Antitrypsin 87 mg/dL (101-187); Phenotype (PI) MZ (.)
[2024-11-04 10:39] LABS: Reticulin IgA Antibody Negative titer (Neg:<1:2.5)
== END 2024-10-30 23:59 | disposition home or self-care (01) ==
LOC: LAB 08:17
PROVIDERS: Nurse Practitioner Family; PCP Nurse Practitioner Family; Visit Provider Nurse Practitioner Family
DX: R74.8 Abnormal levels of other serum enzymes (principal); L40.0 Psoriasis vulgaris; Z79.899 Other long term (current) drug therapy
CPT/HCPCS: 36415; 80053; 80074; 81256; 82103; 82104; 82164; 82172; 82247; 82390; 82465; 82728; 82784; 82947; 82977; 83010; 83516; 83540; 83550; 83883; 84450; 84460; 84478; 85007; 85025; 85027; 85610; 86038; 86225; 86235; 86255; 86256; 86376; 86803

== ENCOUNTER 2024-10-30 08:36 | Emergency (ER) | payer MEDICARE, MEDICAID, SELFPAY ==
[2024-10-30 08:39] VITALS: BP 104/49; PULSE 42; RESP 20; TEMP 36.6; O2SAT 100; BMI 19.7
--- NOTE | 2024-10-30 08:46 | HMH.EDGENADL ---
Discharge Plan Disposition Patient Disposition: Home, Self-Care Condition: Good Prescriptions Prescriptions: New cefadroxil 1 gram tablet 1,000 mg PO BID Qty: 60 0RF No Action estradiol 0.0375 mg/24 hr patch weekly 1 patch topical WEEKLY Patient Comments: APPLY 1 PATCH TOPICALLY ONCE A WEEK FOR 3 WEEKS THEN 1 WEEK OFF. metoprolol succinate [Toprol XL] 25 mg tablet extended release 24 hr 25 mg PO DAILY Qty: 30 3RF PNV #[id number] 30 mg iron-10 mg iron-1 mg capsule PO vitamin E (dl, acetate) 45 mg (100 unit) capsule 45 mg PO DAILY lamotrigine 100 mg tablet 100 mg PO HS Patient Comments: TAKE 1 TABLET BY MOUTH ONCE DAILY AT NIGHT AT BEDTIME DIRECTED venlafaxine 37.5 mg tablet 37.5 mg PO DAILY duloxetine 60 mg Capsule,Delayed Release(Dr/Ec) 60 mg PO DAILY Referrals Follow up/Referrals: Miriam Lazo APRN [Primary Care Provider] - See instructions Clinical Impressions Clinical Impression: UTI (urinary tract infection) Instructions Patient Instructions: DI for Urinary Tract Infection (UTI), DI for Urinary Tract Infection in Children Print Language Print Language: French Discharge ED Provider: Jing Hutchinson General Adult HPI General Chief complaint: Urogenital-Female Stated complaint: Pain and frequent urination Time Seen by Provider: 10/30/24 08:45 Mode of Arrival: Ambulatory Source of Information: Patient Description of Symptoms (Recalled from ER Triage Doc. by RN): pt has been urinating every 5-10 min. burning and irritation. symptoms have been going on for 2 days. History of Present Illness HPI narrative: Patient is a 39-year-old with past medical history significant for nonalcoholic fatty liver disease bipolar 1 disorder generalized anxiety disorder who presents to the emergency department with increased urinary frequency. Patient has had 2 days of urinating every 5 to 10 minutes and burning with urination. Related Data Home Medications ?Medication ?Instructions ?Recorded ?Confirmed lamotrigine 100 mg tablet 100 mg PO HS 10/01/24 10/29/24 estradiol 0.0375 mg/24 hr weekly 1 patch topical WEEKLY 10/22/24 10/29/24 transdermal patch vitamin#30 30 mg iron-10 cap PO 10/29/24 10/29/24 mg iron-folic acid 1 mg-omg3 capsule vitamin E (dl, acetate) 45 mg (100 45 mg PO DAILY 10/29/24 10/29/24 unit) capsule duloxetine 60 mg capsule,delayed 60 mg PO DAILY 10/30/24 10/30/24 release venlafaxine 37.5 mg tablet 37.5 mg PO DAILY 10/30/24 10/30/24 Previous Rx's ?Medication ?Instructions ?Recorded metoprolol succinate 25 mg 25 mg PO DAILY #30 tabs 10/22/24 tablet,extended release 24 hr (Toprol XL) cefadroxil 1 gram tablet 1,000 mg PO BID #60 tabs 10/30/24 Allergies Allergy/AdvReac Type Severity Reaction Status Date / Time aspirin Allergy Dizziness Verified 10/29/24 14:51 NSAIDS (Non-Steroidal AdvReac Other Verified 10/29/24 14:51 Anti-Inflamma [facility] Disclaimer: The information contained in this section may have been updated after the patient was seen, as this information can be updated by other users. Medical History SVT (supraventricular tachycardia) Bipolar 1 disorder Surgical History Gastric bypass status for obesity Social History Smoking Status: Never smoker alcohol intake: never substance use type: marijuana current occupational status: other Travel in the last 8 weeks: None Have you lived/traveled outside [place] in past 30 days?: No Contact w/someone who lives/traveled outside [place] past 30 days?: No Exposure to someone with infectious disease in past 14 days?: No Do you have a fever (greater than 100.4 F or 38 C)?: No Have you tested positive for COVID-19: No Exposed to someone with COVID-19 in past 14 days?: No Do you have a sore throat?: No Do you have a cough?: No Do you have any weakness?: No Do you have any diarrhea?: No Are you experiencing any unusual bleeding?: No Do you have any muscle aches/pain?: No Do you have any abdominal pain?: No Are you experiencing loss of taste or smell?: No Other Medical History Have you received the Flu Vaccine for this season: No Have you received the Pneumonia Vaccine: No ROS Obtained: Yes All systems reviewed & no additional complaints except as documented Physical Exam General General appearance: alert and in no apparent distress Respiratory Respiratory exam: Present normal lung sounds bilaterally; Absent respiratory distress Cardiovascular Cardiovascular exam: Present regular rate and normal rhythm Abdominal Exam Abdominal exam: Present soft and tenderness (Suprapubic); Absent distention or guarding Back Exam Back exam: Present CVA tenderness (R) Neurological Exam Neurological exam: Present alert and oriented X3 Skin Skin exam: Present warm and dry Medical Decision Making Medical Records Screening: Per USPSTF and CDC recommendations, given the prevalence of disease in our region, it is our hospital?s policy to screen for HIV and viral Hepatitis for all patients aged 18 and over and those with ongoing risk factors. Dejon Inquiry Pt receiving controlled substance: No Vital Signs: 10/30/24 08:39 10/30/24 11:00 Temperature 97.9 F 97.9 F Temperature Source Oral Oral Pulse Rate 40 L Pulse Rate [Left Brachial] 42 L Respiratory Rate 20 16 Blood Pressure 105/58 L Blood Pressure [Left Arm] 104/49 L Blood Pressure Mean [Left Arm] 67 Blood Pressure Source Automatic Cuff Blood Pressure Source [Left Arm] Automatic Cuff Blood Pressure Position Sitting Blood Pressure Position [Left Arm] Sitting 02 Sat by Pulse Oximetry 100 Oxygen Delivery Method Room Air Room Air Lab Data Lab Results 10/30/24 08:46: Urine Color Yellow, Urine Appearance Clear, Urine pH 6.0, Ur Specific [place] >= 1.030, Urine Glucose (UA) Negative, Urine Ketones Negative, Urine Bilirubin Negative, Urine Urobilinogen 0.2, Urine RBC Occasional, Urine WBC 5-10, Ur Squamous Epith Cells 5-10, Urine Bacteria Trace, Urine HCG, Qual Negative Orders (Tests/Meds): ORDERS Category Date Time Status UA/RFX Microscopic Stat Lab 10/30/24 08:46 Completed Urine Chlam/Gono/Trich, KERWIN Stat Lab 10/30/24 08:50 Received Urine Microscopic Stat Lab 10/30/24 08:46 Completed Urine , HCG Qual. Stat Lab 10/30/24 08:46 Completed Urine Culture Stat Micro 10/30/24 08:46 Received Medical Decision Narrative: In summary, this 39-year-old female presents to the emergency department today with increased urinary frequency. On initial evaluation patient is bradycardic normotensive afebrile saturating appropriately on room air no acute. Differential diagnosis includes but is not limited to urinary tract infection pyelonephritis urolithiasis gonorrhea chlamydia trichomonas. Based on these concerns, I ordered UA UPT urine culture urine gonorrhea chlamydia trichomonas. Labs personally reviewed demonstrate bacteruria and pyuria. Due to bacteria and pyuria with symptoms of pyelonephritis patient was treated with 10 days of cefadroxil. Patient unable to discharge with outpatient follow-up. 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 Critical Care Critical Care Time Critical Care Time: No
[2024-10-30 09:04] LABS: Urine Pregnancy, HCG Qual. Negative (Negative)
[2024-10-30 10:10] LABS: Appearance,Urine CLEAR (Clear); Bilirubin,Urine Negative (Negative); Blood, Urine NEGATIVE (Negative); Color,Urine YELLOW (Yellow); Glucose,Urine (UA) Negative (Negative); Ketones,Urine Negative (Negative); Leukocyte Esterase,Urine NEGATIVE (Negative); Nitrate,Urine NEGATIVE (Negative); Protein,Urine NEGATIVE (Negative); Specific Gravity, Urine >= 1.030 (1.005-1.030); Urobilinogen,Urine 0.2 EU/dl (0.2)
[2024-10-30 10:33] LABS: Microscopic, Urine URINE MICROSCOPIC (MICROSCOPIC)
[2024-10-30 10:49] LABS: RBC,Urine Occasional #/hpf (0-3)
[2024-10-30 10:50] LABS: Bacteria,Urine Trace /lpf
[2024-10-30 11:00] VITALS: BP 105/58; PULSE 40; RESP 16; TEMP 36.6; O2SAT 100
[2024-11-02 07:41] LABS: Chlamydia trachomatis Negative (Negative); Neisseria gonorrhoeae Negative (Negative); Trichomonas vaginalis Negative (Negative)
--- NOTE | 2024-11-09 10:33 | PC.NURSE ---
[facility] CALLED TO REQUEST NEW ABX, THAT PT JUST CALLED TO GET FILLED. RX GIVEN ON 10/30/2024 NOT COVERED BY INSURANCE, RX CHANGED TO [facility] BY [facility] NOTIFIED
== END 2024-10-30 11:09 | disposition home or self-care (01) ==
PROVIDERS: Emergency Provider Student in an Organized Health Care Education/Training Program; PCP Nurse Practitioner Family
DX: N39.0 Urinary tract infection, site not specified (principal)
CPT/HCPCS: 81003; 81015; 81025; 87086; 87491; 87591; 87661; 99283

== ENCOUNTER 2024-11-05 09:54 | Outpatient (CLI) | payer MEDICARE, MEDICAID, SELFPAY ==
--- NOTE | 2024-11-05 09:55 | US_ITS ---
FINAL REPORT CLINICAL HISTORY: Elevated liver enzymes and acholic stool COMPARISON: None FINDINGS: Sonographic images of the right upper quadrant were obtained. The pancreas is partially obscured.The liver has an unremarkable appearance. The gallbladder is surgically absent. There is no evidence of biliary ductal dilatation.The common duct is normal measuring 3 mm. Limited images of the right kidney are unremarkable. IMPRESSION: Unremarkable right upper quadrant ultrasound status post cholecystectomy. Reviewed, Interpreted and Dictated by Zia Rojas MD Transcribed by Bridgette Bardales Authenticated and [facility]
== END 2024-11-05 23:59 | disposition home or self-care (01) ==
LOC: RAD 09:55
PROVIDERS: PCP Nurse Practitioner Family; Visit Provider Nurse Practitioner Family
DX: R74.8 Abnormal levels of other serum enzymes (principal)
CPT/HCPCS: 76705

== ENCOUNTER 2024-11-26 13:16 | Outpatient (POV) | payer MEDICARE, MEDICAID, SELFPAY ==
[2024-11-26 13:54] VITALS: BP 129/80; PULSE 60; RESP 16; O2SAT 100; BMI 20.5
--- NOTE | 2024-11-26 14:25 | EXP.PAIN.SOA ---
[facility] Disclaimer: The information contained in this section may have been updated after the patient was seen, as this information can be updated by other users. Medical History Htvml-6-[id number] deficiency SVT (supraventricular tachycardia) Bipolar 1 disorder Surgical History Gastric bypass status for obesity Social History Smoking Status: Never smoker alcohol intake: never substance use type: marijuana current occupational status: other Travel in the last 8 weeks: None PM Subjective & Objective Subjective Subjective:: Patient is a pleasant 39-year-old female who presents today for follow-up. Today she rates her pain a 10 out of 10. She denies any new trauma or injury. She states that she still has the chronic neck and low back pain that she has seen our office for in the past. Patient states from her last visit that her psychiatrist did take her off of Cymbalta because it was causing worsening upset stomach and did start her on a new medication twice a day. Patient states she is unsure specifically what that medication name was but it does seem to be working to help with her depression. Patient had previously went and had a psychological evaluation however was deemed not an appropriate candidate due to severe anxiety and depression. Patient does have a longstanding history of gastric bypass and cannot tolerate NSAIDs. Patient's Dejon has been reviewed. Review of Systems: General: No recent weight changes, no fever, no sleep disturbances Respiratory: No cough, no shortness of air, no recurring pulmonary infections Cardiovascular/peripheral vascular: No chest pain, no palpitations, no edema, no shortness of breath Gastrointestinal: No new onset incontinence, normal bowel movements reported Genitourinary: No new onset incontinence Musculoskeletal: Neck pain, low back pain Psychiatric: [Normal mood/affect] Neurological: [Denies weakness in extremities], [denies balance issues] Pain at rest (0-10 scale): 10 Objective Objective:: Physical Exam: General: Alert and oriented x3, no acute distress, pleasant and cooperative Lungs: Respirations even and unlabored, symmetrical chest expansion Eyes: PERRL Musculoskeletal: Flexion and extension of lumbar [spine] somewhat guarded secondary to pain Neurological: Speech clear, no gross sensory deficit Has patient had previous pain injection?: No Conservative treatment options previously tried: Home exercise plan Length of treatment: Longer than 12 weeks Meds Home Medications and Allergies Home Medications ?Medication ?Instructions ?Recorded ?Confirmed ?Type lamotrigine 100 mg tablet 100 mg PO HS 10/01/24 11/26/24 History estradiol 0.0375 mg/24 hr weekly 1 patch topical WEEKLY 10/22/24 11/26/24 History transdermal patch vitamin#30 30 mg iron-10 1 cap PO DIRECTED 10/29/24 11/26/24 History mg iron-folic acid 1 mg-omg3 capsule vitamin E (dl, acetate) 45 mg (100 45 mg PO DAILY 10/29/24 11/26/24 History unit) capsule venlafaxine 37.5 mg tablet 37.5 mg PO DAILY 10/30/24 11/26/24 History cephalexin 500 mg capsule 500 mg PO Q8H 7 days #21 caps 11/09/24 11/26/24 Rx adalimumab 40 mg/0.4 mL 40 mg SQ DIRECTED 11/19/24 11/26/24 History subcutaneous pen kit (Humira(CF) Pen) diltiazem HCl 120 mg capsule,24 120 mg PO DAILY #30 caps 11/19/24 11/26/24 Rx hr,extended release hydrocortisone 2.5 % topical 2.5 applic topical DIRECTED 11/19/24 11/26/24 History ointment triamcinolone acetonide 0.1 % 1 applic topical BID PRN Skin 11/19/24 11/26/24 History topical ointment Condition baclofen 5 mg tablet 5 mg PO BID #28 tabs 11/26/24 Rx New Prescriptions to Start Prescriptions: baclofen Dawna Hendricks Allergies Allergy/AdvReac Type Severity Reaction Status Date / Time aspirin Allergy Dizziness Verified 11/19/24 14:48 NSAIDS (Non-Steroidal AdvReac Other Verified 11/19/24 14:48 Anti-Inflamma Assessment and Plan *Assessment and plan (1) Neck pain: Status: Acute Category: Medical Code(s): M54.2 - Cervicalgia (2) Back pain: Status: Acute Category: Medical Code(s): M54.9 - Dorsalgia, unspecified Plan I will send in baclofen 5 mg twice daily as needed with a 2-week dose. Patient was counseled that in future we can always try again for the possible psychological evaluation however we would wait at least 6 months if not longer. In future I will also discuss with the patient about ordering updated imaging of her neck and low back. We will follow-up with her in 2 weeks regarding this. Patient has been instructed to contact the clinic with any concerns before the next appointment. Dr. Duncan has reviewed this note and agrees with this plan of care. This note was dictated using voice recognition software and make contain errors or omissions. All injections are used with Lidocaine, Bupivacaine and Depo Medrol. Occasionally urine drug screen is needed to verify patient's compliance with our office pain contract. This is ordered based off specific treatments related to chronic pain with the potential to abuse certain medications.
== END 2024-11-26 23:59 | disposition home or self-care (01) ==
PROVIDERS: PCP Nurse Practitioner Family; Visit Provider Nurse Practitioner Family
DX: M54.2 Cervicalgia (principal); M54.9 Dorsalgia, unspecified
CPT/HCPCS: 99212; G0463

== ENCOUNTER 2024-12-10 14:32 | Outpatient (POV) | payer MEDICARE, MEDICAID, SELFPAY ==
--- NOTE | 2024-12-10 15:03 | A.OFFVIS_ITS ---
[facility] Disclaimer: The information contained in this section may have been updated after the patient was seen, as this information can be updated by other users. Medical History Ebwkr-[id number] deficiency SVT (supraventricular tachycardia) Bipolar 1 disorder Surgical History Gastric bypass status for obesity Social History Smoking Status: Never smoker alcohol intake: never substance use type: marijuana current occupational status: other Travel in the last 8 weeks: None PM Subjective & Objective Subjective Subjective:: Patient is a pleasant 39-year-old female who presents today for 2-week follow- up. Patient was prescribed baclofen 5 mg twice a day from our office at the last visit. She does state that this has helped with the muscle spasms she was experiencing and does feel like she is able to sleep a little bit better now. Patient does state that she still has the pain in her neck and back. Patient states that the baclofen did not seem to do anything with that. Patient denies any new falls or injuries. She rates her pain today an 8 out of 10. Her Dejon has been reviewed. Review of Systems: General: No recent weight changes, no fever, no sleep disturbances Respiratory: No cough, no shortness of air, no recurring pulmonary infections Cardiovascular/peripheral vascular: No chest pain, no palpitations, no edema, no shortness of breath Gastrointestinal: No new onset incontinence, normal bowel movements reported Genitourinary: No new onset incontinence Musculoskeletal: Neck pain, low back pain Psychiatric: [Normal mood/affect] Neurological: [Denies weakness in extremities], [denies balance issues] Pain at rest (0-10 scale): 8 Objective Objective:: Physical Exam: General: Alert and oriented x3, no acute distress, pleasant and cooperative Lungs: Respirations even and unlabored, symmetrical chest expansion Eyes: PERRL Musculoskeletal: Flexion and extension of lumbar [spine] somewhat guarded secondary to pain, [antalgic gait noted] Neurological: Speech clear, no gross sensory deficit Has patient had previous pain injection?: No Conservative treatment options previously tried: Home exercise plan Length of treatment: Longer than 12 weeks Meds Home Medications and Allergies Home Medications ?Medication ?Instructions ?Recorded ?Confirmed ?Type lamotrigine 100 mg tablet 100 mg PO HS 10/01/24 11/26/24 History estradiol 0.0375 mg/24 hr weekly 1 patch topical WEEKLY 10/22/24 11/26/24 History transdermal patch vitamin#30 30 mg iron-10 1 cap PO DIRECTED 10/29/24 11/26/24 History mg iron-folic acid 1 mg-omg3 capsule vitamin E (dl, acetate) 45 mg (100 45 mg PO DAILY 10/29/24 11/26/24 History unit) capsule venlafaxine 37.5 mg tablet 37.5 mg PO DAILY 10/30/24 11/26/24 History cephalexin 500 mg capsule 500 mg PO Q8H 7 days #21 caps 11/09/24 11/26/24 Rx adalimumab 40 mg/0.4 mL 40 mg SQ DIRECTED 11/19/24 11/26/24 History subcutaneous pen kit (Humira(CF) Pen) diltiazem HCl 120 mg capsule,24 120 mg PO DAILY #30 caps 11/19/24 11/26/24 Rx hr,extended release hydrocortisone 2.5 % topical 2.5 applic topical DIRECTED 11/19/24 11/26/24 History ointment triamcinolone acetonide 0.1 % 1 applic topical BID PRN Skin 11/19/24 11/26/24 History topical ointment Condition baclofen 5 mg tablet 5 mg PO BID #28 tabs 11/26/24 Rx New Prescriptions to Start Prescriptions: Allergies Allergy/AdvReac Type Severity Reaction Status Date / Time aspirin Allergy Dizziness Verified 11/19/24 14:48 NSAIDS (Non-Steroidal AdvReac Other Verified 11/19/24 14:48 Anti-Inflamma Assessment and Plan *Assessment and plan (1) Back pain: Status: Acute Category: Medical Code(s): M54.9 - Dorsalgia, unspecified (2) Neck pain: Status: Acute Category: Medical Code(s): M54.2 - Cervicalgia Plan I will refill the patient's baclofen and provide a 1 month supply of this medication. I did discuss with the patient that we could try for at least some of her acute pain the new prescription of journavx 50 mg twice daily. Patient is agreeable to this option. I will send in a 2-week dose of this. Patient will return to clinic in 2 weeks for reevaluation of symptoms and plan of care. Patient has been instructed to contact the clinic with any concerns before the next appointment. Dr. Duncan has reviewed this note and agrees with this plan of care. This note was dictated using voice recognition software and make contain errors or omissions. All injections are used with Lidocaine, Bupivacaine and Depo Medrol. Occasionally urine drug screen is needed to verify patient's compliance with our office pain contract. This is ordered based off specific treatments related to chronic pain with the potential to abuse certain medications.
[2024-12-10 15:25] VITALS: BP 123/78; PULSE 63; RESP 18; O2SAT 100; BMI 19.5
== END 2024-12-10 23:59 | disposition home or self-care (01) ==
PROVIDERS: PCP Nurse Practitioner Family; Visit Provider Nurse Practitioner Family
DX: M54.9 Dorsalgia, unspecified (principal); M54.2 Cervicalgia
CPT/HCPCS: 99212; G0463

== ENCOUNTER 2025-01-01 13:11 | Emergency (ER) | payer MEDICARE, MEDICAID, SELFPAY ==
[2025-01-01 13:32] VITALS: BP 106/55; PULSE 67; RESP 16; TEMP 36.8; O2SAT 99; BMI 19.5
[2025-01-01 13:46] LABS: Coronavirus 19, PCR Not Detected (NotDetected); Influenza A, PCR Not Detected (NotDetected); Influenza B, PCR Not Detected (NotDetected)
[2025-01-01 14:00] LABS: Strep Scrn Group A (Rapid) Negative (Negative)
--- NOTE | 2025-01-01 14:29 | PC.NURSE ---
I called lab to inquire on the pts nasal swab. They are resulting it at this time.
[2025-01-01 14:51] VITALS: BP 119/75; PULSE 78; RESP 17; TEMP 36.7; O2SAT 98
--- NOTE | 2025-01-01 14:55 | ED_ITS ---
Discharge Plan Disposition Patient Disposition: Home, Self-Care Condition: Good Prescriptions Prescriptions: New [id number] [Bromfed DM] 2-30-10 mg/5 mL syrup 5 ml PO Q6H PRN (Reason: cold symptoms) Qty: 118 0RF No Action estradiol 0.0375 mg/24 hr patch weekly 1 patch topical WEEKLY Patient Comments: APPLY 1 PATCH TOPICALLY ONCE A WEEK FOR 3 WEEKS THEN 1 WEEK OFF. PNV #[id number] 30 mg iron-10 mg iron-1 mg capsule 1 cap PO DIRECTED vitamin E (dl, acetate) 45 mg (100 unit) capsule 45 mg PO DAILY triamcinolone acetonide 0.1 % ointment 1 applic topical BID PRN (Reason: Skin Condition) Patient Comments: APPLY OINTMENT TOPICALLY TO AFFECTED AREA TWICE DAILY FOR 2 WEEKS TO AREAS OF PSORIASIS ON TRUNK AND EXTREMITIES THEN TAKE A 1 WEEK BREAK hydrocortisone 2.5 % ointment 2.5 applic topical DIRECTED Patient Comments: APPLY OINTMENT EXTERNALLY TO AFFECTED AREA TWICE DAILY FOR 2 WEEKS AND THEN TAKE A 1 WEEK BREAK Humira(CF) Pen 40 mg/0.4 mL pen injector kit 40 mg SQ DIRECTED diltiazem HCl 120 mg capsule,extended release 24hr 120 mg PO DAILY Qty: 30 5RF lamotrigine 100 mg tablet 100 mg PO HS Patient Comments: TAKE 1 TABLET BY MOUTH ONCE DAILY AT NIGHT AT BEDTIME DIRECTED venlafaxine 37.5 mg tablet 37.5 mg PO DAILY Journavx 50 mg tablet 50 mg PO BID Qty: 28 0RF baclofen 5 mg tablet 5 mg PO BID Qty: 60 0RF Referrals Follow up/Referrals: Miriam Lazo APRN [Primary Care Provider] - See instructions Activity Restrictions/Add. Instructions Additional Instructions/Restrictions: You were evaluated in the emergency department today. At this time, it is felt that you have a viral infection. Please take Tylenol every 4-6 hours as needed for pain/fever. Make sure you stay orally hydrated. 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 Return to the emergency department for new or worsening symptoms. Follow-up with your primary care provider for reassessment. Clinical Impressions Clinical Impression: Acute viral syndrome Stand Alone Forms Stand Alone Forms: Work/School Release Instructions Patient Instructions: DI for Viral Syndrome Print Language Print Language: Lithuanian Discharge ED Provider: Dawna Blanchard General Adult HPI General Chief complaint: Dizziness Stated complaint: light headed, sore throat, jaw swollen Time Seen by Provider: 01/01/25 13:31 Mode of Arrival: Ambulatory Source of Information: Patient Description of Symptoms (Recalled from ER Triage Doc. by RN): Patient reports lightheaded but unsure if she needs to take additional heart pill . Patient also reports nasal congestion and sore throat. History of Present Illness HPI narrative: This patient is a 39-year-old female with a history of alpha-1 antitrypsin deficiency, obesity status post gastric bypass presented to the emergency department for evaluation with concern for lightheadedness, congestion, cough, and sore throat. Her daughter at home is also sick. No other concerns or complaints noted such as chest pain, shortness of breath, abdominal pain, vomiting, changes bowel movements. Related Data Home Medications ?Medication ?Instructions ?Recorded ?Confirmed lamotrigine 100 mg tablet 100 mg PO HS 10/01/24 12/21/24 estradiol 0.0375 mg/24 hr weekly 1 patch topical WEEKLY 10/22/24 12/21/24 transdermal patch vitamin#30 30 mg iron-10 1 cap PO DIRECTED 10/29/24 12/21/24 mg iron-folic acid 1 mg-omg3 capsule vitamin E (dl, acetate) 45 mg (100 45 mg PO DAILY 10/29/24 12/21/24 unit) capsule venlafaxine 37.5 mg tablet 37.5 mg PO DAILY 10/30/24 12/21/24 adalimumab 40 mg/0.4 mL 40 mg SQ DIRECTED 11/19/24 12/21/24 subcutaneous pen kit (Humira(CF) Pen) hydrocortisone 2.5 % topical 2.5 applic topical DIRECTED 11/19/24 12/21/24 ointment triamcinolone acetonide 0.1 % 1 applic topical BID PRN Skin 11/19/24 12/21/24 topical ointment Condition Previous Rx's ?Medication ?Instructions ?Recorded diltiazem HCl 120 mg capsule,24 120 mg PO DAILY #30 caps 11/19/24 hr,extended release baclofen 5 mg tablet 5 mg PO BID #60 tabs 12/10/24 suzetrigine 50 mg tablet (Journavx) 50 mg PO BID #28 tabs 12/10/24 [id number]-[id number] 5 ml PO Q6H PRN cold symptoms #118 01/01/25 2 mg-30 mg-10 mg/5 mL oral syrup mL (Bromfed DM) Allergies Allergy/AdvReac Type Severity Reaction Status Date / Time aspirin Allergy Dizziness Verified 12/21/24 14:58 NSAIDS (Non-Steroidal AdvReac Other Verified 12/21/24 14:58 Anti-Inflamma PFSH [facility] Disclaimer: The information contained in this section may have been updated after the patient was seen, as this information can be updated by other users. Medical History Yqley-9-xgisyascqhx deficiency SVT (supraventricular tachycardia) Bipolar 1 disorder Surgical History Gastric bypass status for obesity Social History Smoking Status: Former smoker alcohol intake: never substance use type: marijuana current occupational status: other Travel in the last 8 weeks?: None Have you lived/traveled outside [place] in past 30 days?: No Contact w/someone who lives/traveled outside [place] past 30 days?: No Exposure to someone with infectious disease in past 14 days?: No Do you have a fever (greater than 100.4 F or 38 C)?: No Have you tested positive for COVID-19?: No Exposed to someone with COVID-19 in past 14 days?: No Do you have a sore throat?: Yes Do you have a cough?: No Do you have any weakness?: No Do you have any diarrhea?: No Are you experiencing any unusual bleeding?: No Do you have any muscle aches/pain?: No Do you have any abdominal pain?: No Are you experiencing loss of taste or smell?: No Other Medical History Have you received the Flu Vaccine for this season: Yes Have you received the Pneumonia Vaccine: No ROS Obtained: Yes All systems reviewed & no additional complaints except as documented Physical Exam General General appearance: alert and in no apparent distress Head Head exam: atraumatic and normocephalic Eye Eye exam: Present normal appearance, PERRL and EOMI ENT ENT exam: Present normal exam, normal oropharynx, mucous membranes moist and normal external ear exam Neck Neck exam: Present normal inspection, full ROM and trachea midline; Absent tenderness Chest Chest inspection: Present normal inspection and symmetric chest wall rise; Absent tenderness Respiratory Respiratory exam: Present normal lung sounds bilaterally; Absent respiratory distress, wheezes, stridor or accessory muscle use Cardiovascular Cardiovascular exam: Present regular rate and normal rhythm Abdominal Exam Abdominal exam: Present soft; Absent distention, tenderness or guarding Extremities Exam Extremities exam: Present normal inspection, full ROM and normal capillary refill; Absent tenderness or edema Back Exam Back exam: Present normal inspection and full ROM; Absent tenderness Neurological Exam Neurological exam: Present alert, oriented X3, CN II-XII intact and normal gait; Absent motor sensory deficit Psychiatric Psychiatric exam: Present normal affect and normal mood Skin Skin exam: Present warm and dry Medical Decision Making Medical Records Medical records reviewed: Yes I reviewed the patient's medical records. Screening: Per USPSTF and CDC recommendations, given the prevalence of disease in our region, it is our hospital?s policy to screen for HIV and viral Hepatitis for all patients aged 18 and over and those with ongoing risk factors. Dejon Inquiry Pt receiving controlled substance: No Vital Signs: 01/01/25 13:32 01/01/25 14:51 Temperature 98.2 F 98.0 F Temperature Source Oral Oral Pulse Rate 78 Pulse Rate [Right Radial] 67 Respiratory Rate 16 17 Blood Pressure 119/75 Blood Pressure [Left Arm] 106/55 L Blood Pressure Mean [Left Arm] 72 Blood Pressure Source Automatic Cuff 02 Sat by Pulse Oximetry 99 Oxygen Delivery Method Room Air Room Air Lab Data Lab results reviewed: Yes I reviewed the patient's lab results. Lab Results 01/01/25 13:33: SARS-CoV-2 (PCR) Not detected, Influenza A Untype (PCR) Not detected, Influenza Type B (PCR) Not detected, Group A Strep Rapid Negative Orders (Tests/Meds): ORDERS Category Date Time Status Rapid PCR Covid and Flu A/B Stat Lab 01/01/25 13:33 Completed Strep Scrn Group A (Rapid) Stat Lab 01/01/25 13:33 Completed Strep Screen Confirmation Stat Micro 01/01/25 13:33 Received Medical Decision Narrative: In summary, this patient is a 39-year-old female presenting to the Emergency Department for evaluation of lightheadedness, sore throat, cough, congestion. Daughter at home is also sick. Differential diagnoses considered include but are not limited to viral syndrome, strep pharyngitis, pneumonia. Ruling out the most morbid conditions drove assessment. On exam, the patient is very well-appearing with normal vitals on cardiac telemetry. Cardiopulmonary exam is reassuring with no adventitious lung sounds, abdominal exam is benign. She is alert and neurologically intact. Strep and viral swabs were sent and were negative for strep. Viral swab pending. I co nsidered obtaining labs and imaging such as basic lab evaluation and chest x- ray, however based on reassuring history and exam I do not feel that this is indicated as I feel patient likely has a viral syndrome. I feel she is appropriate for discharge with instructions for supportive management. She is given prescription for Bromfed and instructions for close follow-up with PCP. She was discharged with strict return precautions Critical Care Critical Care Time Critical Care Time: No
== END 2025-01-01 14:52 | disposition home or self-care (01) ==
PROVIDERS: Emergency Provider Emergency Medicine; PCP Nurse Practitioner Family
DX: R42 Dizziness and giddiness (principal); R07.0 Pain in throat; B34.9 Viral infection, unspecified
CPT/HCPCS: 87430; 87636; 99283

== ENCOUNTER 2025-01-02 08:24 | Emergency (ER) | payer MEDICARE, MEDICAID, SELFPAY ==
[2025-01-02 08:35] VITALS: BP 121/71; PULSE 61; RESP 16; TEMP 36.6; O2SAT 100; BMI 19.5
[2025-01-02 08:37] LABS: Appearance,Urine CLEAR (Clear); Bilirubin,Urine Negative (Negative); Blood, Urine 3+ (Negative); Color,Urine YELLOW (Yellow); Glucose,Urine (UA) Negative (Negative); Ketones,Urine TRACE (Negative); Leukocyte Esterase,Urine 2+ (Negative); Microscopic, Urine URINE MICROSCOPIC (MICROSCOPIC); Nitrate,Urine Negative (Negative); Protein,Urine 2+ (Negative); Specific Gravity, Urine >= 1.030 (1.005-1.030); Urobilinogen,Urine 0.2 EU/dl (0.2)
[2025-01-02] MEDS: ACETAMINOPHEN 500MG TAB 1000 MG PO (08:44)
--- NOTE | 2025-01-02 08:45 | ED_ITS ---
Discharge Plan Disposition Patient Disposition: Home, Self-Care Condition: Good Prescriptions Prescriptions: New nitrofurantoin monohyd/m-cryst [Macrobid] 100 mg capsule 100 mg PO BID 5 Days Qty: 10 0RF Rx Instructions: must administer with a meal/food No Action estradiol 0.0375 mg/24 hr patch weekly 1 patch topical WEEKLY Patient Comments: APPLY 1 PATCH TOPICALLY ONCE A WEEK FOR 3 WEEKS THEN 1 WEEK OFF. PNV #[id number] 30 mg iron-10 mg iron-1 mg capsule 1 cap PO DIRECTED vitamin E (dl, acetate) 45 mg (100 unit) capsule 45 mg PO DAILY triamcinolone acetonide 0.1 % ointment 1 applic topical BID PRN (Reason: Skin Condition) Patient Comments: APPLY OINTMENT TOPICALLY TO AFFECTED AREA TWICE DAILY FOR 2 WEEKS TO AREAS OF PSORIASIS ON TRUNK AND EXTREMITIES THEN TAKE A 1 WEEK BREAK hydrocortisone 2.5 % ointment 2.5 applic topical DIRECTED Patient Comments: APPLY OINTMENT EXTERNALLY TO AFFECTED AREA TWICE DAILY FOR 2 WEEKS AND THEN TAKE A 1 WEEK BREAK Humira(CF) Pen 40 mg/0.4 mL pen injector kit 40 mg SQ DIRECTED diltiazem HCl 120 mg capsule,extended release 24hr 120 mg PO DAILY Qty: 30 5RF lamotrigine 100 mg tablet 100 mg PO HS Patient Comments: TAKE 1 TABLET BY MOUTH ONCE DAILY AT NIGHT AT BEDTIME DIRECTED venlafaxine 37.5 mg tablet 37.5 mg PO DAILY Journavx 50 mg tablet 50 mg PO BID Qty: 28 0RF baclofen 5 mg tablet 5 mg PO BID Qty: 60 0RF vyqwaymggsjyzjv-pzxbmecuj-JZ [Bromfed DM] 2-30-10 mg/5 mL syrup 5 ml PO Q6H PRN (Reason: cold symptoms) Qty: 118 0RF Referrals Follow up/Referrals: Miriam Lazo APRN [Primary Care Provider] - See instructions Activity Restrictions/Add. Instructions Additional Instructions/Restrictions: You were diagnosed with a UTI. Begin taking the antibiotics today. You will take this medication twice a day for the next 5 days until completed. If your urine culture grows a bacteria that is not covered by your antibiotic, you will be contacted and provided a prescription for a new antibiotic. Take Tylenol as needed every 6 hours for pain control. Ensure you are drinking adequate amounts of water. Cranberry juice can also help with your symptoms. Please follow up with your primary care provider in 2-3 days. Please return to ED if your symptoms worsen, change in location, change in severity, new symptoms develop or if you become concerned for your health. Clinical Impressions Clinical Impression: Dysuria UTI (urinary tract infection) Qualifiers: Urinary tract infection type: acute cystitis Hematuria presence: with hematuria Qualified Code(s): N30.01 - Acute cystitis with hematuria Instructions Patient Instructions: DI for Urinary Tract Infection (UTI), DI for Urinary Tract Infection in Children Print Language Print Language: Palestinian Discharge ED Provider: Kaitlyn Sparks General Adult HPI General Chief complaint: Urogenital-Female Stated complaint: Poss. UTI Time Seen by Provider: 01/02/25 08:27 Mode of Arrival: Ambulatory Source of Information: Patient Description of Symptoms (Recalled from ER Triage Doc. by RN): patient states she woke up today with frequent urination left sided flank pain and burning urination History of Present Illness HPI narrative: Dawna Daniels is a 39 y/o female presenting with dysuria. Pt reports waking up at approximately 6 AM and felt that she emptied her bladder fully. As soon as she left the bathroom, she had to return to urinate more and stated that urination burned. She did not notice any blood. She states she then had to start going to the bathroom every 5 to 10 minutes to urinate. She describes slight lower abdominal pain and lower back pain. She denies fevers or chills. She denies nausea, vomiting, or constipation/diarrhea. Patient reports history of UTI and states this feels similar. Related Data Home Medications ?Medication ?Instructions ?Recorded ?Confirmed lamotrigine 100 mg tablet 100 mg PO HS 10/01/24 12/21/24 estradiol 0.0375 mg/24 hr weekly 1 patch topical WEEKLY 10/22/24 12/21/24 transdermal patch vitamin#30 30 mg iron-10 1 cap PO DIRECTED 10/29/24 12/21/24 mg iron-folic acid 1 mg-omg3 capsule vitamin E (dl, acetate) 45 mg (100 45 mg PO DAILY 10/29/24 12/21/24 unit) capsule venlafaxine 37.5 mg tablet 37.5 mg PO DAILY 10/30/24 12/21/24 adalimumab 40 mg/0.4 mL 40 mg SQ DIRECTED 11/19/24 12/21/24 subcutaneous pen kit (Humira(CF) Pen) hydrocortisone 2.5 % topical 2.5 applic topical DIRECTED 11/19/24 12/21/24 ointment triamcinolone acetonide 0.1 % 1 applic topical BID PRN Skin 11/19/24 12/21/24 topical ointment Condition Previous Rx's ?Medication ?Instructions ?Recorded diltiazem HCl 120 mg capsule,24 120 mg PO DAILY #30 caps 11/19/24 hr,extended release baclofen 5 mg tablet 5 mg PO BID #60 tabs 12/10/24 suzetrigine 50 mg tablet (Journavx) 50 mg PO BID #28 tabs 12/10/24 keafggytambpsbj-wknwrghwqggznwb-JX 5 ml PO Q6H PRN cold symptoms #118 01/01/25 2 mg-30 mg-10 mg/5 mL oral syrup mL (Bromfed DM) nitrofurantoin 100 mg PO BID 5 days #10 caps 01/02/25 monohydrate/macrocrystals 100 mg capsule (Macrobid) Allergies Allergy/AdvReac Type Severity Reaction Status Date / Time aspirin Allergy Dizziness Verified 12/21/24 14:58 NSAIDS (Non-Steroidal AdvReac Other Verified 12/21/24 14:58 Anti-Inflamma PFSH PFS Disclaimer: The information contained in this section may have been updated after the patient was seen, as this information can be updated by other users. Medical History Aikgd-0-zmfpwafliyg deficiency SVT (supraventricular tachycardia) Bipolar 1 disorder Surgical History Gastric bypass status for obesity Social History Smoking Status: Current every day smoker alcohol intake: never substance use type: marijuana current occupational status: other Travel in the last 8 weeks?: None Have you lived/traveled outside [place] in past 30 days?: No Contact w/someone who lives/traveled outside US past 30 days?: No Exposure to someone with infectious disease in past 14 days?: No Do you have a fever (greater than 100.4 F or 38 C)?: No Have you tested positive for COVID-19?: No Exposed to someone with COVID-19 in past 14 days?: No Do you have a sore throat?: No Do you have a cough?: No Do you have any weakness?: No Do you have any diarrhea?: No Are you experiencing any unusual bleeding?: No Do you have any muscle aches/pain?: No Do you have any abdominal pain?: No Are you experiencing loss of taste or smell?: No Other Medical History Have you received the Flu Vaccine for this season: Yes Have you received the Pneumonia Vaccine: No ROS Obtained: Yes All systems reviewed & no additional complaints except as documented Physical Exam General General appearance: alert and in no apparent distress Chest Chest inspection: Present normal inspection and symmetric chest wall rise; Absent tenderness Respiratory Respiratory exam: Present normal lung sounds bilaterally; Absent respiratory distress Cardiovascular Cardiovascular exam: Present regular rate and normal rhythm; Absent JVD Abdominal Exam Abdominal exam: Present soft, tenderness and normal bowel sounds; Absent distention or guarding Abdominal tenderness: Present suprapubic (Mild) Back Exam Back exam: Present normal inspection; Absent tenderness Neurological Exam Neurological exam: Present alert and oriented X3 Medical Decision Making Medical Records Medical records reviewed: Yes I reviewed the patient's medical records. Screening: Per USPSTF and CDC recommendations, given the prevalence of disease in our region, it is our hospital?s policy to screen for HIV and viral Hepatitis for all patients aged 18 and over and those with ongoing risk factors. Dejon Inquiry Pt receiving controlled substance: No Vital Signs: 01/02/25 08:35 01/02/25 09:01 01/02/25 09:27 Temperature 97.9 F 97.9 F Temperature Source Oral Oral Pulse Rate 53 L 62 Pulse Rate [Right Radial] 61 Respiratory Rate 16 15 Blood Pressure 105/67 L 125/69 Blood Pressure [Right Arm] 121/71 Blood Pressure Mean [Right Arm] 87 Blood Pressure Source Automatic Cuff Blood Pressure Source [Right Arm] Automatic Cuff Blood Pressure Position Sitting Blood Pressure Position [Right Arm] Sitting 02 Sat by Pulse Oximetry 100 99 Oxygen Delivery Method Room Air Room Air Room Air Lab Data Lab results reviewed: Yes I reviewed the patient's lab results. Lab Results 01/02/25 08:31: Urine Color Yellow, Urine Appearance Clear, Urine pH 6.0, Ur Specific [place] >= 1.030, Urine Protein 2+ A, Urine Glucose (UA) Negative, Urine Ketones Trace, Urine Blood 3+ A, Urine Nitrate Negative, Urine Bilirubin Negative, Urine Urobilinogen 0.2, Ur Leukocyte Esterase 2+ A, Urine RBC Tntc, Urine WBC 50-100, Ur Squamous Epith Cells 3-5, Urine Bacteria 2+ Orders (Tests/Meds): ED MEDICATIONS Discontinued Medications Generic Name Dose Route Start Last Admin Trade Name Eugenio PRN Reason Stop Dose Admin Acetaminophen 1,000 mg 01/02/25 08:36 01/02/25 08:44 Acetaminophen 500mg Tab PO 01/02/25 08:37 1,000 mg ONCE ONE Administration ORDERS Category Date Time Status Urinalysis and Microscopic Stat Lab 01/02/25 08:31 Completed Urine Culture Stat Micro 01/02/25 08:28 Received Medical Decision Narrative: In summary, this is a 39-year-old female presenting with dysuria. Differential diagnosis includes but is not limited to, acute cystitis, nephrolithiasis, pyelonephritis, constipation, cystocele, STI. Patient reports no concern for sexually transmitted infections at this time. Patient also reports having a total hysterectomy, therefore is unlikely. Patient has had UTI in the past and reports this feels similar. Acute onset symptoms without fever also suggestive of acute cystitis over other diagnoses. Will perform urinalysis and send a urine culture. Patient reports no allergies to antibiotics. Patient treated with Tylenol for pain. Patient's urinalysis was significant for blood, 50-100 WBCs and 2+ bacteria. Urine culture is in process. Patient given results of her urinalysis and informed of her antibiotic prescription. Patient also informed that she would be contacted should her urine culture not be susceptible to Macrobid. Patient advised to take the medication until completed even if her symptoms improve. Patient given return precautions and discharged in stable condition. Kaitlyn Sparks MD Critical Care Critical Care Time Critical Care Time: No
[2025-01-02 09:01] VITALS: BP 105/67; PULSE 53; O2SAT 99
[2025-01-02 09:16] LABS: Bacteria,Urine 2+ /lpf; RBC,Urine TNTC #/hpf (0-3); WBC,Urine 50-100 #/hpf (0-3)
[2025-01-02 09:27] VITALS: BP 125/69; PULSE 62; RESP 15; TEMP 36.6; O2SAT 99
--- NOTE | 2025-01-06 10:49 | PC.NURSE ---
urine culture back and no growth, ntd.
== END 2025-01-02 09:32 | disposition home or self-care (01) ==
PROVIDERS: Emergency Provider Student in an Organized Health Care Education/Training Program; PCP Nurse Practitioner Family
DX: N30.01 Acute cystitis with hematuria (principal); R30.0 Dysuria
CPT/HCPCS: 81001; 87086; 99283

== ENCOUNTER 2025-01-06 13:27 | Outpatient (POV) | payer MEDICARE, MEDICAID, SELFPAY ==
[2025-01-06 13:52] VITALS: BP 106/79; PULSE 61; RESP 18; O2SAT 100; BMI 19.5
--- NOTE | 2025-01-06 14:04 | EXP.PAIN.SOA ---
[facility] Disclaimer: The information contained in this section may have been updated after the patient was seen, as this information can be updated by other users. Medical History Fcbne-1-xllbhgrfvif deficiency SVT (supraventricular tachycardia) Bipolar 1 disorder Surgical History Gastric bypass status for obesity Social History Smoking Status: Current every day smoker alcohol intake: never substance use type: marijuana current occupational status: other Travel in the last 8 weeks?: None PM Subjective & Objective Subjective Subjective:: Patient is a pleasant 39-year-old female who presents today for follow-up. Today she rates her pain a 10 out of 10. Patient does states she still has the chronic back pain that does go into her legs. Patient states that she is still using the baclofen and that it does at least help a little bit. Patient is prescribed 5 mg twice a day from our office. She denies any side effects. Patient was prescribed journavx recently however she states that her insurance actually did not cover this medication so she never even tried it. 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 Patient is seeing Dr. pearl mccall at Dr. Almanza's office. Her Dejon has been reviewed and is appropriate. Review of Systems: General: No recent weight changes, no fever, no sleep disturbances Respiratory: No cough, no shortness of air, no recurring pulmonary infections Cardiovascular/peripheral vascular: No chest pain, no palpitations, no edema, no shortness of breath Gastrointestinal: No new onset incontinence, normal bowel movements reported Genitourinary: No new onset incontinence Musculoskeletal: Low back pain, leg pain Psychiatric: [Normal mood/affect] Neurological: [Denies weakness in extremities], [denies balance issues] Pain at rest (0-10 scale): 10 Objective Objective:: Physical Exam: General: Alert and oriented x3, no acute distress, pleasant and cooperative Lungs: Respirations even and unlabored, symmetrical chest expansion Eyes: PERRL Musculoskeletal: Flexion and extension of lumbar [spine] somewhat guarded secondary to pain I Neurological: Speech clear, no gross sensory deficit Has patient had previous pain injection?: No Conservative treatment options previously tried: Home exercise plan Length of treatment: Longer than 12 weeks Meds Home Medications and Allergies Home Medications ?Medication ?Instructions ?Recorded ?Confirmed ?Type lamotrigine 100 mg tablet 100 mg PO HS 10/01/24 01/06/25 History estradiol 0.0375 mg/24 hr weekly 1 patch topical WEEKLY 10/22/24 01/06/25 History transdermal patch vitamin#30 30 mg iron-10 1 cap PO DIRECTED 10/29/24 01/06/25 History mg iron-folic acid 1 mg-omg3 capsule vitamin E (dl, acetate) 45 mg (100 45 mg PO DAILY 10/29/24 01/06/25 History unit) capsule venlafaxine 37.5 mg tablet 37.5 mg PO DAILY 10/30/24 01/06/25 History adalimumab 40 mg/0.4 mL 40 mg SQ DIRECTED 11/19/24 01/06/25 History subcutaneous pen kit (Humira(CF) Pen) diltiazem HCl 120 mg capsule,24 120 mg PO DAILY #30 caps 11/19/24 01/06/25 Rx hr,extended release hydrocortisone 2.5 % topical 2.5 applic topical DIRECTED 11/19/24 01/06/25 History ointment triamcinolone acetonide 0.1 % 1 applic topical BID PRN Skin 11/19/24 01/06/25 History topical ointment Condition baclofen 5 mg tablet 5 mg PO BID #60 tabs 12/10/24 01/06/25 Rx suzetrigine 50 mg tablet (Journavx) 50 mg PO BID #28 tabs 12/10/24 01/06/25 Rx zzesykdcxylploj-npjozdinrywlcaq-ON 5 ml PO Q6H PRN cold symptoms #118 01/01/25 01/06/25 Rx 2 mg-30 mg-10 mg/5 mL oral syrup mL (Bromfed DM) nitrofurantoin 100 mg PO BID 5 days #10 caps 01/02/25 01/06/25 Rx monohydrate/macrocrystals 100 mg capsule (Macrobid) New Prescriptions to Start Prescriptions: Allergies Allergy/AdvReac Type Severity Reaction Status Date / Time aspirin Allergy Dizziness Verified 12/21/24 14:58 NSAIDS (Non-Steroidal AdvReac Other Verified 12/21/24 14:58 Anti-Inflamma Assessment and Plan *Assessment and plan (1) Chronic pain syndrome: Status: Acute Category: Medical Code(s): G89.4 - Chronic pain syndrome (2) Low back pain: Status: Acute Category: Medical Code(s): M54.50 - Low back pain, unspecified Plan I did discuss with the patient that we can still always try additional injections as she has not had any done with our office. Patient does state that she has had them done in the past and just never got really good relief. Patient will be changed to baclofen 5 mg 3 times daily with a 3-month supply of this medication. Patient will return to clinic in 3 months. Patient has been instructed to contact the clinic with any concerns before the next appointment. Dr. Duncan has reviewed this note and agrees with this plan of care. This note was dictated using voice recognition software and make contain errors or omissions. All injections are used with Lidocaine, Bupivacaine and dexamethasone. Occasionally urine drug screen is needed to verify patient's compliance with our office pain contract. This is ordered based off specific treatments related to chronic pain with the potential to abuse certain medications.
== END 2025-01-06 23:59 | disposition home or self-care (01) ==
PROVIDERS: PCP Nurse Practitioner Family; Visit Provider Nurse Practitioner Family
DX: G89.4 Chronic pain syndrome (principal); M54.50 Low back pain, unspecified; F17.200 Nicotine dependence, unspecified, uncomplicated
CPT/HCPCS: 99212; G0463

== ENCOUNTER 2025-01-18 10:41 | Emergency (ER) | payer MEDICARE, MEDICAID, SELFPAY ==
[2025-01-18 10:53] LABS: Microscopic, Urine URINE MICROSCOPIC (MICROSCOPIC)
[2025-01-18 10:55] VITALS: BP 125/60; PULSE 74; RESP 18; O2SAT 99; BMI 18.7
[2025-01-18 11:03] LABS: Appearance,Urine SL CLOUDY (Clear); Bilirubin,Urine Negative (Negative); Blood, Urine 1+ (Negative); Color,Urine YELLOW (Yellow); Glucose,Urine (UA) Negative (Negative); Ketones,Urine TRACE (Negative); Leukocyte Esterase,Urine TRACE (Negative); Nitrate,Urine Negative (Negative); Protein,Urine TRACE (Negative); Specific Gravity, Urine >= 1.030 (1.005-1.030); Urobilinogen,Urine 0.2 EU/dl (0.2)
--- NOTE | 2025-01-18 11:09 | CT_ITS ---
PROCEDURE INFORMATION: Exam: CT Abdomen And Pelvis With Contrast Exam date and time: 01/18/2025 12:03 PM Age: 39 years old Clinical indication: Other: Dysuria; Prior surgery; Surgery date: 6+ months; Surgery type: Cholecystectomy & bladder sling; Additional info: Dysuria, CVA tenderness bilaterally TECHNIQUE: Imaging protocol: Computed tomography of the abdomen and pelvis with contrast. Radiation optimization: All CT scans at this facility use at least one of these dose optimization techniques: automated exposure control; mA and/or kV adjustment per patient size (includes targeted exams where dose is matched to clinical indication); or iterative reconstruction. Contrast material: ISOVUE; Contrast volume: 75 ml; Contrast route: IV; COMPARISON: US LIVER 11/05/2024 9:49 AM FINDINGS: Lungs: Lung bases are clear as visualized. Liver: Normal. No mass. Gallbladder and biliary ducts: Status post cholecystectomy. Pancreas: Normal. No ductal dilation. Spleen: Normal. No splenomegaly. Adrenal glands: Normal. No mass. Kidneys and ureters: No renal or ureteral calculi or obstruction bilaterally. Stomach and bowel: No bowel obstruction or acute inflammation. Postsurgical changes of gastric bypass. Moderate colonic stool burden. Correlate for constipation. Appendix: No evidence of appendicitis. Intraperitoneal space: Probable trace free fluid in the dependent deep abdomen. Otherwise, no distinct ascites. No appreciable pneumoperitoneum or abscess. Vasculature: Unremarkable. No abdominal aortic aneurysm. Lymph nodes: Unremarkable. No enlarged lymph nodes. Urinary bladder: Unremarkable decompressed bladder. Reproductive: Unremarkable as visualized. Bones/joints: Unremarkable. No acute fracture. Soft tissues: Mild anasarca. IMPRESSION: 1. No bowel obstruction or acute inflammation. 2. No renal or ureteral calculi or obstruction bilaterally. 3. Unremarkable decompressed bladder.
--- NOTE | 2025-01-18 11:09 | HMH.EDGENADL ---
Discharge Plan Disposition Patient Disposition: Home, Self-Care Condition: Good Prescriptions Prescriptions: New doxycycline monohydrate 100 mg capsule 100 mg PO BID 7 Days Qty: 14 0RF cefdinir 300 mg capsule 300 mg PO Q12H 7 Days Qty: 14 0RF No Action estradiol 0.0375 mg/24 hr patch weekly 1 patch topical WEEKLY Patient Comments: APPLY 1 PATCH TOPICALLY ONCE A WEEK FOR 3 WEEKS THEN 1 WEEK OFF. PNV #[id number] 30 mg iron-10 mg iron-1 mg capsule 1 cap PO DIRECTED vitamin E (dl, acetate) 45 mg (100 unit) capsule 45 mg PO DAILY triamcinolone acetonide 0.1 % ointment 1 applic topical BID PRN (Reason: Skin Condition) Patient Comments: APPLY OINTMENT TOPICALLY TO AFFECTED AREA TWICE DAILY FOR 2 WEEKS TO AREAS OF PSORIASIS ON TRUNK AND EXTREMITIES THEN TAKE A 1 WEEK BREAK hydrocortisone 2.5 % ointment 2.5 applic topical DIRECTED Patient Comments: APPLY OINTMENT EXTERNALLY TO AFFECTED AREA TWICE DAILY FOR 2 WEEKS AND THEN TAKE A 1 WEEK BREAK Humira(CF) Pen 40 mg/0.4 mL pen injector kit 40 mg SQ DIRECTED diltiazem HCl 120 mg capsule,extended release 24hr 120 mg PO DAILY Qty: 30 5RF lamotrigine 100 mg tablet 100 mg PO HS Patient Comments: TAKE 1 TABLET BY MOUTH ONCE DAILY AT NIGHT AT BEDTIME DIRECTED venlafaxine 37.5 mg tablet 37.5 mg PO DAILY baclofen 5 mg tablet 5 mg PO TID Qty: 90 2RF Journavx 50 mg tablet 50 mg PO BID Qty: 28 0RF bqfbgwwsmbawvvb-rixwaahzx-AQ [Bromfed DM] 2-30-10 mg/5 mL syrup 5 ml PO Q6H PRN (Reason: cold symptoms) Qty: 118 0RF nitrofurantoin monohyd/m-cryst [Macrobid] 100 mg capsule 100 mg PO BID 5 Days Qty: 10 0RF Rx Instructions: must administer with a meal/food Referrals Follow up/Referrals: Miriam Lazo APRN [Primary Care Provider] - See instructions Activity Restrictions/Add. Instructions Additional Instructions/Restrictions: You were seen for UTI and vaginal discharge. Please complete your antibiotics. Follow up with your PCP this week for reevaluation. Return to the ER if you have any worsening symptoms. Clinical Impressions Clinical Impression: Vaginal discharge UTI (urinary tract infection) Qualifiers: Urinary tract infection type: acute cystitis Hematuria presence: with hematuria Qualified Code(s): N30.01 - Acute cystitis with hematuria Instructions Patient Instructions: DI for Urinary Tract Infection (UTI), DI for Vaginal Discharge Print Language Print Language: Icelandic Discharge ED Provider: Carlyle Yuen General Adult HPI <JENNIFER Ramirez - Last Filed: 01/18/25 13:42> General Chief complaint: Urogenital-Female Stated complaint: poss uti burning/frequency Time Seen by Provider: 01/18/25 10:47 Mode of Arrival: Ambulatory Source of Information: Patient Description of Symptoms (Recalled from ER Triage Doc. by RN): Pt reports she think she may have a UTI. Pt reports lower back pain, urinary pain and frequency x1.5 days. History of Present Illness HPI narrative: Patient presents complaining of dysuria and frequency since yesterday. She reports a history of UTI. She denies any fevers or vomiting. She has had some light brown vaginal discharge as well. She also complains of some bilateral low back pain. MD complaint: UTI symptoms Onset (ago): day(s) (2) Location: back and genitals Related Data Home Medications ?Medication ?Instructions ?Recorded ?Confirmed lamotrigine 100 mg tablet 100 mg PO HS 10/01/24 01/06/25 estradiol 0.0375 mg/24 hr weekly 1 patch topical WEEKLY 10/22/24 01/06/25 transdermal patch vitamin#30 30 mg iron-10 1 cap PO DIRECTED 10/29/24 01/06/25 mg iron-folic acid 1 mg-omg3 capsule vitamin E (dl, acetate) 45 mg (100 45 mg PO DAILY 10/29/24 01/06/25 unit) capsule venlafaxine 37.5 mg tablet 37.5 mg PO DAILY 10/30/24 01/06/25 adalimumab 40 mg/0.4 mL 40 mg SQ DIRECTED 11/19/24 01/06/25 subcutaneous pen kit (Humira(CF) Pen) hydrocortisone 2.5 % topical 2.5 applic topical DIRECTED 11/19/24 01/06/25 ointment triamcinolone acetonide 0.1 % 1 applic topical BID PRN Skin 11/19/24 01/06/25 topical ointment Condition Previous Rx's ?Medication ?Instructions ?Recorded diltiazem HCl 120 mg capsule,24 120 mg PO DAILY #30 caps 11/19/24 hr,extended release suzetrigine 50 mg tablet (Journavx) 50 mg PO BID #28 tabs 12/10/24 qtpfbubcikhbvgt-mjtwlctlduzlshk-PL 5 ml PO Q6H PRN cold symptoms #118 01/01/25 2 mg-30 mg-10 mg/5 mL oral syrup mL (Bromfed DM) nitrofurantoin 100 mg PO BID 5 days #10 caps 01/02/25 monohydrate/macrocrystals 100 mg capsule (Macrobid) baclofen 5 mg tablet 5 mg PO TID #90 tabs 01/06/25 cefdinir 300 mg capsule 300 mg PO Q12H 7 days #14 caps 01/18/25 doxycycline monohydrate 100 mg 100 mg PO BID 7 days #14 caps 01/18/25 capsule Allergies Allergy/AdvReac Type Severity Reaction Status Date / Time aspirin Allergy Dizziness Verified 01/18/25 11:28 NSAIDS (Non-Steroidal AdvReac Other Verified 01/18/25 11:28 Anti-Inflamma PFSH <JENNIFER Ramirez - Last Filed: 01/18/25 13:42> [facility] Disclaimer: The information contained in this section may have been updated after the patient was seen, as this information can be updated by other users. Medical History (Updated 01/18/25 @ 13:36 by JENNIFER Ramirez) Cholecystectomy planned Nhpkg-3-bdgqcyqtcas deficiency SVT (supraventricular tachycardia) Bipolar 1 disorder Surgical History (Updated 01/18/25 @ 11:28 by Loli Marmolejo RN) History of tonsillectomy and adenoidectomy History of hysterectomy Gastric bypass status for obesity Social History Smoking Status: Never smoker alcohol intake: never substance use type: marijuana current occupational status: other Travel in the last 8 weeks?: None Have you lived/traveled outside US in past 30 days?: No Contact w/someone who lives/traveled outside US past 30 days?: No Exposure to someone with infectious disease in past 14 days?: No Do you have a fever (greater than 100.4 F or 38 C)?: No Have you tested positive for COVID-19?: No Exposed to someone with COVID-19 in past 14 days?: No Do you have a sore throat?: No Do you have a cough?: No Do you have any weakness?: No Do you have any diarrhea?: No Are you experiencing any unusual bleeding?: No Do you have any muscle aches/pain?: No Do you have any abdominal pain?: No Are you experiencing loss of taste or smell?: No Other Medical History Have you received the Flu Vaccine for this season: Yes Have you received the Pneumonia Vaccine: No <JENNIFER Ramirez - Last Filed: 01/18/25 13:42> ROS Obtained: Yes Systems reviewed as appropriate & no additional complaints except as documented Physical Exam <JENNIFER Ramirez Last Filed: 01/18/25 13:42> General General appearance: alert and in no apparent distress Head Head exam: atraumatic and normocephalic Eye Eye exam: Present normal appearance and EOMI Chest Chest inspection: Present symmetric chest wall rise Respiratory Respiratory exam: Present normal lung sounds bilaterally; Absent wheezes or stridor Cardiovascular Cardiovascular exam: Present regular rate and normal rhythm; Absent systolic murmur Abdominal Exam Abdominal exam: Present soft; Absent distention Abdominal tenderness: Present RUQ Comment: B/L CVA tenderness External exam: Present normal external exam Speculum exam: Present vaginal discharge and other (Unable to complete due to discomfort, she does have small amount of white vaginal discharge. ) Extremities Exam Extremities exam: Present full ROM Neurological Exam Neurological exam: Present alert and oriented X3 Psychiatric Psychiatric exam: Present normal affect and normal mood Skin Skin exam: Present warm, dry and intact Medical Decision Making <JENNIFER Ramirez - Last Filed: 01/18/25 13:42> Medical Records Screening: Per USPSTF and CDC recommendations, given the prevalence of disease in our region, it is our hospital?s policy to screen for HIV and viral Hepatitis for all patients aged 18 and over and those with ongoing risk factors. Dejon Inquiry Pt receiving controlled substance: No Vital Signs: 01/18/25 10:55 Pulse Rate [Right Brachial] 74 Respiratory Rate 18 Blood Pressure [Right Arm] 125/60 Blood Pressure Mean [Right Arm] 81 02 Sat by Pulse Oximetry 99 Oxygen Delivery Method Room Air Lab Data Lab Results 01/18/25 10:50: Urine Color Yellow, Urine Appearance Sl cloudy, Urine pH 6.0, Ur Specific [place] >= 1.030, Urine Protein Trace, Urine Glucose (UA) Negative, Urine Ketones Trace, Urine Blood 1+ A, Urine Nitrate Negative, Urine Bilirubin Negative, Urine Urobilinogen 0.2, Ur Leukocyte Esterase Trace, Urine RBC 5-10, Urine WBC 5-10, Ur Squamous Epith Cells 10-20, Urine Bacteria 2+, Urine Mucus 1+ 01/18/25 11:47: WBC 4.7 L, RBC 3.98 L, Hgb 12.4, Hct 37.1, MCV 93.2, MCH 31.2, MCHC 33.4, RDW 12.6, Plt Count 197, MPV 8.9, Neut % (Auto) 49.0, Lymph % (Auto) 39.4, [place] % (Auto) 8.6, Eos % (Auto) 2.4, Baso % (Auto) 0.4, Neut # (Auto) 2.3, Lymph # (Auto) 1.8, [place] # (Auto) 0.4, Eos # (Auto) 0.1, Baso # (Auto) 0.0, Sodium 140, Potassium 3.9, Chloride 105, Carbon Dioxide 32 H, Anion Gap 6.9, BUN 13, Creatinine 0.60, Estimated Creat Clear 85, Estimated GFR 110, Est GFR ( Amer) 133, Glucose 84, Calcium 9.1, Total Bilirubin 0.6, AST 34, ALT 20, Alkaline Phosphatase 75, Total Protein 6.9, Albumin 4.2, Globulin 2.7, Albumin/Globulin Ratio 1.6, Lipase 72 01/18/25 11:47 01/18/25 11:47 Orders (Tests/Meds): ED MEDICATIONS Generic Name Dose Route Start Last Admin Trade Name Freq PRN Reason Stop Dose Admin Sodium Chloride 10 ml 01/18/25 12:08 01/18/25 12:11 Sodium Chloride 0.9% 10ml Syr (Rad Only) IV 02/17/25 12:07 10 ml NEEDED PRN Administration Maintain IV Site Discontinued Medications Generic Name Dose Route Start Last Admin Trade Name Freq PRN Reason Stop Dose Admin Ceftriaxone Sodium 1 gm 01/18/25 13:45 01/18/25 13:46 Ceftriaxone 1gm Vial IM 01/18/25 13:46 1 gm ONCE ONE Administration Iopamidol 75 ml 01/18/25 12:08 01/18/25 12:11 Iopamidol-370 (76%);100ml Bottle IV 01/18/25 12:09 75 ml ONCE ONE Administration Lidocaine HCl 2.1 ml 01/18/25 13:45 01/18/25 13:46 Lidocaine 1% 5ml Pf Vial IJ 01/18/25 13:46 2.1 ml ONCE ONE Administration ORDERS Category Date Time Status CT abdomen pelvis w con Stat Cat Scan 01/18/25 11:09 Completed CBC w/Auto Diff [Complete Blood Count Auto Diff] Stat Lab 01/18/25 11:47 Completed CMP [Comprehensive Metabolic Panel] Stat Lab 01/18/25 11:47 Completed Lipase Stat Lab 01/18/25 11:47 Completed UA [Urinalysis and Microscopic] Stat Lab 01/18/25 10:50 Completed Vaginitis Plus/HSV Stat Lab 01/18/25 12:38 Received Urine Culture Stat Micro 01/18/25 10:50 Received Medical Decision Narrative: In summary patient is a 39-year-old female who presents the emergency department for evaluation of dysuria, frequency. Patient is hemodynamically stable upon arrival, afebrile. Bilateral CVA tenderness and right upper quadrant tenderness on exam. Differential diagnosis includes cystitits, vaginitis, pyelonephritis. Initial workup will be conducted with labs, urinalysis, CT abdomen pelvis, vaginitis swab. Initial workup reviewed by me UTI on urinalysis, other labs unremarkable, constipation on CT. Upon repeat evaluation patient continues to be well-appearing. Given this patient will be treated for UTI. Discussed empiric treatment for STI given ongoing urinary symptoms despite treatment for UTI twice and negative urine cultures, she is agreeable to empiric treatment at this time. <Carlyle Yuen MD - Last Filed: 01/18/25 14:18> Vital Signs: 01/18/25 10:55 Pulse Rate [Right Brachial] 74 Respiratory Rate 18 Blood Pressure [Right Arm] 125/60 Blood Pressure Mean [Right Arm] 81 02 Sat by Pulse Oximetry 99 Oxygen Delivery Method Room Air Lab Data Lab Results 01/18/25 10:50: Urine Color Yellow, Urine Appearance Sl cloudy, Urine pH 6.0, Ur Specific [place] >= 1.030, Urine Protein Trace, Urine Glucose (UA) Negative, Urine Ketones Trace, Urine Blood 1+ A, Urine Nitrate Negative, Urine Bilirubin Negative, Urine Urobilinogen 0.2, Ur Leukocyte Esterase Trace, Urine RBC 5-10, Urine WBC 5-10, Ur Squamous Epith Cells 10-20, Urine Bacteria 2+, Urine Mucus 1+ 01/18/25 11:47: WBC 4.7 L, RBC 3.98 L, Hgb 12.4, Hct 37.1, MCV 93.2, MCH 31.2, MCHC 33.4, RDW 12.6, Plt Count 197, MPV 8.9, Neut % (Auto) 49.0, Lymph % (Auto) 39.4, [place] % (Auto) 8.6, Eos % (Auto) 2.4, Baso % (Auto) 0.4, Neut # (Auto) 2.3, Lymph # (Auto) 1.8, [place] # (Auto) 0.4, Eos # (Auto) 0.1, Baso # (Auto) 0.0, Sodium 140, Potassium 3.9, Chloride 105, Carbon Dioxide 32 H, Anion Gap 6.9, BUN 13, Creatinine 0.60, Estimated Creat Clear 85, Estimated GFR 110, Est GFR ( Amer) 133, Glucose 84, Calcium 9.1, Total Bilirubin 0.6, AST 34, ALT 20, Alkaline Phosphatase 75, Total Protein 6.9, Albumin 4.2, Globulin 2.7, Albumin/Globulin Ratio 1.6, Lipase 72 Orders (Tests/Meds): ED MEDICATIONS Generic Name Dose Route Start Last Admin Trade Name Freq PRN Reason Stop Dose Admin Sodium Chloride 10 ml 01/18/25 12:08 01/18/25 12:11 Sodium Chloride 0.9% 10ml Syr (Rad Only) IV 02/17/25 12:07 10 ml NEEDED PRN Administration Maintain IV Site Discontinued Medications Generic Name Dose Route Start Last Admin Trade Name Freq PRN Reason Stop Dose Admin Ceftriaxone Sodium 1 gm 01/18/25 13:45 01/18/25 13:46 Ceftriaxone 1gm Vial IM 01/18/25 13:46 1 gm ONCE ONE Administration Iopamidol 75 ml 01/18/25 12:08 01/18/25 12:11 Iopamidol-370 (76%);100ml Bottle IV 01/18/25 12:09 75 ml ONCE ONE Administration Lidocaine HCl 2.1 ml 01/18/25 13:45 01/18/25 13:46 Lidocaine 1% 5ml Pf Vial IJ 01/18/25 13:46 2.1 ml ONCE ONE Administration ORDERS Category Date Time Status CT abdomen pelvis w con Stat Cat Scan 01/18/25 11:09 Completed CBC w/Auto Diff [Complete Blood Count Auto Diff] Stat Lab 01/18/25 11:47 Completed CMP [Comprehensive Metabolic Panel] Stat Lab 01/18/25 11:47 Completed Lipase Stat Lab 01/18/25 11:47 Completed UA [Urinalysis and Microscopic] Stat Lab 01/18/25 10:50 Completed Vaginitis Plus/HSV Stat Lab 01/18/25 12:38 Received Urine Culture Stat Micro 01/18/25 10:50 Received Medical Decision Narrative: In summary patient is a 39-year-old female who presents the emergency department for evaluation of dysuria, frequency. Patient is hemodynamically stable upon arrival, afebrile. Bilateral CVA tenderness and right upper quadrant tenderness on exam. Differential diagnosis includes cystitits, vaginitis, pyelonephritis. Initial workup will be conducted with labs, urinalysis, CT abdomen pelvis, vaginitis swab. Initial workup reviewed by me UTI on urinalysis, other labs unremarkable, constipation on CT. Upon repeat evaluation patient continues to be well-appearing. Given this patient will be treated for UTI. Discussed empiric treatment for STI given ongoing urinary symptoms despite treatment for UTI twice and negative urine cultures, she is agreeable to empiric treatment at this time. I was consulted by the BRELIN, and we discussed the complexity of the problems being addressed. I approved the treatment and management plan for this patient's care in the emergency department, thus performing a substantive portion of the medical decision making. Urinalysis equivocal however ongoing dysuria and possibility of STIs given multiple antibiotic rounds without improvement of dysuria empiric treatment is a reasonable approach. Carlyle Yuen MD Critical Care <JENNIFER Ramirez - Last Filed: 01/18/25 13:42> Critical Care Time Critical Care Time: No
[2025-01-18 11:11] LABS: Bacteria,Urine 2+ /lpf; Mucus,Urine 1+ /lpf
[2025-01-18 11:56] LABS: Basophils % 0.4 % (0.1-2.0); Eosinophils # 0.1 Kmm3 (0.0-0.4); Eosinophils % 2.4 % (0.1-12.0); Hematocrit 37.1 % (37.0-47.0); Hemoglobin 12.4 g/dL (12.2-16.2); Immature Granulocytes # 0.01 10^3uL; Immature Granulocytes % 0.2 %; Lymphocytes # 1.8 K/mm3 (0.7-4.5); Lymphocytes % 39.4 % (10-50); Mean Corpuscular HGB Conc 33.4 g/dL (31.8-35.4); Mean Corpuscular Hemoglobin 31.2 pg (27.0-31.2); Mean Corpuscular Volume 93.2 fl (81-99); Mean Platelet Volume 8.9 fl (7.4-10.4); Monocytes # 0.4 K/mm3 (0.1-1.0); Monocytes % 8.6 % (1.7-9.3); Neutrophils # 2.3 K/mm3 (1.8-7.8); Nucleated Red Blood Cells # 0 10^3/uL; Nucleated Red Blood Cells % 0 %; Platelet Count 197 K/mm3 (142-424); Red Blood Count 3.98 M/mm3 (4.20-5.40); Red Cell Distribution Width 12.6 % (11.5-17.5); Red Cell Distribution Width-SD 43.8 fL; White Blood Count 4.7 K/mm3 (4.8-10.8)
[2025-01-18 12:09] LABS: Alanine Aminotransferase 20 U/L (12-78); Albumin Level 4.2 g/dl (3.5-5.0); Albumin/Globulin Ratio 1.6 (1.1-1.8); Alkaline Phosphatase 75 U/L (38-126); Anion Gap 6.9 mEq/L (5-15); Aspartate Amino Transferase 34 U/L (14-36); Bilirubin,Total 0.6 mg/dl (0.2-1.3); Blood Urea Nitrogen 13 mg/dl (7-17); Calcium 9.1 mg/dl (8.4-10.2); Carbon Dioxide 32 mmol/L (22.0-30.0); Chloride 105 mmol/L (98-107); Creatinine Clearance Estimated 85 mL/min (50-200); Estimated Glomerular Filt Rate 110 ml/min (>60); GFR (African American) 133 ML/MIN (>60); Globulin 2.7 g/dL (1.3-3.2); Glucose 84 mg/dl (74-100); Potassium 3.9 mmoL/L (3.5-5.1); Sodium 140 mmol/L (136-145); Total Protein,Serum 6.9 g/dl (6.3-8.2)
[2025-01-18 12:10] LABS: Lipase 72 U/L (23-300)
[2025-01-18] MEDS: IOPAMIDOL-370 (76%);100ML BOTTLE 75 ML IV (12:11)
[2025-01-18] MEDS: SODIUM CHLORIDE 0.9% 10ML SYR (RAD ONLY) 10 ML IV (12:11)
[2025-01-18] MEDS: LIDOCAINE 1% 5ML PF VIAL 2.1 ML IJ (13:46)
[2025-01-18] MEDS: cefTRIAXone 1GM VIAL 1 GM IM (13:46)
[2025-01-18 13:52] VITALS: BP 109/58; PULSE 82; RESP 18; TEMP 36.6; O2SAT 99
[2025-01-21 13:16] LABS: Atopobium vaginae Low - 0 Score (.); BVAB2 Low - 0 Score (.); Candida albicans NAA Negative (Negative); Candida glabrata Negative (Negative); Chlamydia Trachomatis NAA Negative (Negative); HSV 1 NAA Negative (Negative); HSV 2 NAA Positive (Negative); Megasphaera 1 Low - 0 Score (.); Neisseria gonorrhoeae NAA Negative (Negative); Trich vag NAA Negative (Negative)
--- NOTE | 2025-01-24 16:31 | PC.NURSE ---
Discussed with Dr Alberts pt's Vaginal swab. She is positive for HSV 2 and he had me call in Valacyclovir 1Gram PO BID for 10 days to [facility]. I attempted to call pt on her cell phone, however her line has calling restrictions and I am unable to leave a voicemail or get through for the call to be placed.
== END 2025-01-18 13:52 | disposition home or self-care (01) ==
PROVIDERS: Physician Assistant; Emergency Provider Emergency Medicine; PCP Nurse Practitioner Family
DX: N30.01 Acute cystitis with hematuria (principal); R30.0 Dysuria; R35.0 Frequency of micturition; N89.8 Other specified noninflammatory disorders of vagina
CPT/HCPCS: 74177; 80053; 81001; 83690; 85025; 87086; 87491; 87529; 87591; 87661; 87798; 87801; 96372; 99285; J0696; J2003; Q9967

== ENCOUNTER 2025-02-19 08:37 | Outpatient (CLI) | payer MEDICARE, MEDICAID, SELFPAY ==
--- NOTE | 2025-02-19 08:30 | MM_ITS ---
PROCEDURE INFORMATION: Exam: MG Bilateral Screening 3D Mammography Exam date and time: 02/19/2025 8:48 AM Age: 40 years old Clinical indication: Screening. Several paternal aunts had breast cancer. TECHNIQUE: Imaging protocol: Bilateral Screening tomosynthesis and 2D mammography including computer-aided detection (CAD) when performed. COMPARISON: No relevant prior studies available. If prior mammograms are provided, I am happy to add an addendum. FINDINGS: MAMMOGRAPHY: Breast composition: There are scattered areas of fibroglandular density. Mass: None. Architectural distortion: None. Calcifications: No suspicious calcifications. Asymmetric density: None. Skin thickening: None. Axillary adenopathy: None. IMPRESSION: No mammographic evidence of malignancy. Annual screening is recommended unless otherwise clinically indicated. ASSESSMENT: BI-RADS Category 1: Negative.
--- OUTSIDE RECORDS SUMMARY | 2025-02-19 08:39 | XMS_ITS | Patient Health Record ---
Author Organization Delbert Walker MD S Address [address] [facility] [address] [place], [place] [id number] Care Team Providers Care Laundry Tub Maker Name Role Phone Shaun Recinos Unavailable Unavailable Reason For Referral No Information Medications Medication SIG (Take, Route, Frequency, Duration) Notes Start Date End Date Status Triamcinolone Acetonide 0.1 % 1 application to affected area Externally Twice a day; Duration: 30 days PRN 03/04/2017 Active buPROPion HCl ER (XL) 150 MG 1 tablet in the morning Orally Once a day Active Meclizine HCl 25 MG 1 tablet as needed O rally Three times daily Active LaMICtal 150 MG 1 tablet Orally Twic e a day Active Levothyroxine Sodium 75 MCG 1 tablet Ora lly Once a day; Duration: 30 days 05/03/2016 Active Bromocriptine Mesylate 2.5 MG 1 tablet Orally twice a day; Duration: 30 days 05/03/2016 Active Social History Alcohol Screen Question Answer Notes Did you have a drink containing alcohol in the p ast year? No Points 0 Interpretation Negative Section Notes: Denies ETOH use Denies ETOH use Denies ETOH use Denies ETOH use Denies ETOH use Denies ETOH use Denies ETOH use Denies ETOH use Denies ETOH use Denies ETOH use Denies ETOH use Problems Problem Type SNOMED Code ICD Code Onset Dates Problem Status W/U Status Risk Notes Problem Hypothyroidism, unspecified (E03.9) Active confirmed Problem Major depression, single episode (28535762) Major depressive disorder, single episode, unspecified (F32.9) Active confirmed Problem Hyperprolactinemia (646513998) Hyperprolactinemia (E22.1) Active confirmed Plan Of Treatment Pending Test Test Name Order Date TSH+Free T4 03/30/2016 TSH+Free T4 05/03/2016 TSH+Free T4 09/03/2016 TSH+Free T4 12/03/2016 TSH+Free T4 06/03/2017 TSH+Free T4 03/04/2017 Comp. Metabolic Panel (14) 03/04/2017 Comp. Metabolic Panel (14) 12/03/2016 Comp. Metabolic Panel (14) 03/30/2016 Comp. Metabolic Panel (14) 09/03/2016 Basic Metabolic Panel (8) 02/03/2018 MRI : Brain with and without contrast Ultrasound : Thyroid Sonography B-Scan 0 05/03/2016 TSH+Free T4 02/03/2018 TSH+Free T4 05/05/2018 TSH+Free T4 01/06/2018 Basic Metabolic Panel (8) 06/03/2017 PROLACTIN 05/05/2018 BASIC METABOLIC PANEL 05/05/2018 BASIC METABOLIC PANEL 01/06/2018 MRI : Brain,Pituitary 03/30/2016 PROLACTIN 03/30/2016 PROLACTIN 05/03/2016 PROLACTIN 09/03/2016 PROLACTIN 12/03/2016 PROLACTIN 03/04/2017 PROLACTIN 06/03/2017 PROLACTIN 01/06/2018 PROLACTIN 02/03/2018 Insurance Providers Payer Name Payer Address Payer Phone Subscriber Number Group Number Insured Name Patient Relationship to Insured Coverage Start Date Coverage End Date [employer] [place] [employer] [address] [place] [address] [id number] Dawna Daniels Self - patient is the insured Medical (General) History Medical History History ICD Code Galactohea Depression Giddiness , Vertigo Surgical History Surgery Date(Month/Year) Eye muscles x2 Tonsils and Adenoids Tubal Ligation Nova Sure Procedure Bladder Sling Hospitalization History Reason Date(Month/Year) See surgical HX Childbirth 3 day stay- Liver/ gallbladder issues- [facility] 07/23/2016
--- OUTSIDE RECORDS SUMMARY | 2025-02-19 08:39 | XMS_ITS | Clinical Summary ---
Author Organization [facility] Address [address] [place] [address] Care Team Providers Care Fan Engine Engineer Name Role Phone Clifton Miriam Robe VILLANUEVA Primary Care Provider [phone] Social History Tobacco Use Types Packs/Day Years Used Date Smoking Tobacco: Never Assessed Comments Unknown Sex and Gender Information Value Date Recorded Sex Assigned at Not on file Legal Sex Female 11:51 AM EST Gender Identity Not on file Sexual Orientation Not on file Plan of Treatment Health Maintenance Due Date Last Done Comments [facility]-Depression Screening 1983 [facility]-HIV Screening 1983 [facility]-Hepatitis C Screening 1983 [facility]-Medicare Annual Wellness (AWV) 1983 [facility]-Infant/Child/Adol SDOH Screenings 1983 [facility]-Varicella Vaccines (1 of 2 - 13+ 2-dose series) 01/22/1996 HPV Vaccines (1 - 3-dose series) 1998 [facility]- SDOH Screenings 2001 [facility]-Adult SDOH Screenings 2001 [facility]-DTaP,Tdap,and Td Vaccine s (1 - Tdap) 2002 [facility]-Hepatitis B Vaccines (1 of 3 - 19+ 3-dose series) 2002 [facility]-Pap Smear 01/22/2004 [facility]-Cervical Cancer Screening 2013 [facility]-HPV/Cotest 2013 SOF-[id number]-61 Vaccine (1 - 20 24-25 season) 2024 [facility]-Zoster Vaccines (1 of 2) 2033 [facility]-Influenza Vaccine Completed 06/25/2024 [facility]-HIB Vaccines Aged Out No longer e ligible based on patient's age to complete this topic [facility]-Hepatitis A Vaccines Aged Out No longer eligible based on patient's age to complete this topic [facility]-IPV Vaccines Aged Out No longer e ligible based on patient's age to complete this topic [facility]-Pneumococcal Vaccine: Pediatrics (0 to 5 Years) and At-Risk Patients (6 to 49 Years) Aged Out No long er eligible based on patient's age to complete this topic [facility]-Rotavirus Vaccines Aged Out No lo nger eligible based on patient's age to complete this topic Insurance Care Teams Fan Engine Engineer Relationship Specialty Start Date End Date Miriam Lazo APRN [address] [phone] PCP - General 07/20/24
--- NOTE | 2025-02-19 09:10 | XR_ITS ---
FINAL REPORT CLINICAL HISTORY: menopause COMPARISON: None FINDINGS: Using L1-4, the bone mineral density of the spine is 0.863 g/cm2, corresponding to T-score of -1.7 which is compatible with osteopenia. Using the left hip, the bone mineral density of the total hip is 0.731 g/cm2, corresponding to a T-score of -1.7 which is compatible with osteopenia. Using the right hip, the bone mineral density of the femoral neck is 0.682 g/cm2, corresponding to a T-score of -1.5 which is compatible with osteopenia. FRAX 10 year fracture risk is 0.2% for a hip fracture and 2.2% for a major osteoporotic fracture. NOTE: T-score: Standard deviation compared with peak bone mass of young adult mean. *Following the recommendations of the International Society of Bone densitometry, classification of hip BMD is based on the lower of two T-scores; total hip or femoral neck. IMPRESSION: Diminished bone mineral density consistent with osteopenia. Reviewed, Interpreted and Dictated by Subha Malik MD Transcribed by Neeta Khan Authenticated and [facility]
== END 2025-02-19 23:59 | disposition home or self-care (01) ==
LOC: RAD 08:37
PROVIDERS: PCP Nurse Practitioner Family; Visit Provider Obstetrics & Gynecology
DX: Z12.31 Encounter for screening mammogram for malignant neoplasm of breast (principal); M85.80 Other specified disorders of bone density and structure, unspecified site; R92.323 Mammographic fibroglandular density, bilateral breasts; Z78.0 Asymptomatic menopausal state
CPT/HCPCS: 77063; 77067; 77080

== ENCOUNTER 2025-03-24 09:26 | Outpatient (POV) | payer MEDICARE, MEDICAID, SELFPAY ==
--- OUTSIDE RECORDS SUMMARY | 2009-09-28 20:00 | XMS_ITS | Continuity of Care Document ---
[facility] Address [address] [place] [address] Phone Care Team Providers Care Food Production Supervisor Name Role Phone Kelli Leahy MD Unavailable Unavailable Procedures Procedure Date Tdap Boostrix 10-18 [facility] Tdap Boostrix 10-18 [facility] Tdap Boostrix 10-18 [facility] Tdap Boostrix 10-18 [facility] Tdap Boostrix 10-18 [facility] Tdap Boostrix 10-18 [facility] MMR [facility] MMR [facility] MMR [facility] Flu TIV Coalition MMR Private Tdap [...] Copied on Encounter OFFICE/OUTPAT IENT VISIT, EST [facility] Department , [address], [place], [place], [id number], tel:[phone] [facility] Dept Immunization No Information 0 Armond Pereira. [address], [place], [place], [id number] , . tel:[phone] Family History Family Member Type Diagnosis Age At Onset No Information Immunizations Vaccine Date Status Comments flu (split) preservative nicho e, 3 yrs or older administered Note: Had to manuall y enter exp. 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 YOANDY LOPEZ RN ; Source: New Immunization Record Tdap administered Source: New Imm unization Record MMR administered Source: New Imm unization Record flu (split) preservative nicho e, 3 yrs or older cancelled Source: New Immuniza tion Record Flu (split) (3 yrs or older) cancelled Source: New Immunization Record Payers Payer name Insurance type Covered democrat ID Authoriza tion(s) [facility] [id number] Social History Type Description Quantity Date Captured [...]
--- OUTSIDE RECORDS SUMMARY | 2025-03-24 09:29 | XMS_ITS | Patient Health Record ---
Author Organization Delbert Walker MD S Address [address] [facility] [address] [place], [place] [id number] Care Team Providers Care Turn Sewer Name Role Phone Shaun Recinos Unavailable Unavailable [...] Problem Status W/U Status Risk Notes Problem Hypothyroidism (30096242) Hypothyroidism, unspecified (E03.9) Active confirmed Problem Major depression, single episode (69115646) Major depressive disorder, single episode, unspecified (F32.9) Active confirmed Problem Hyperprolactinemia (735056278) Hyperprolactinemia (E22.1) Active confirmed Plan Of Treatment Pending Test Test Name Order Date TSH+Free T4 03/30/2016 TSH+Free T4 05/03/2016 TSH+Free T4 09/03/2016 TSH+Free T4 12/03/2016 TSH+Free T4 03/04/2017 TSH+Free T4 06/03/2017 Comp. Metabolic Panel (14) 12/03/2016 Comp. Metabolic Panel (14) 03/04/2017 Comp. Metabolic Panel (14) 03/30/2016 Comp. Metabolic Panel (14) 09/03/2016 Basic Metabolic Panel (8) 02/03/2018 MRI : Brain with and without contrast Ultrasound : Thyroid Sonography B-Scan 0 05/03/2016 TSH+Free T4 02/03/2018 TSH+Free T4 01/06/2018 TSH+Free T4 05/05/2018 Basic Metabolic Panel (8) 06/03/2017 PROLACTIN 05/05/2018 BASIC METABOLIC PANEL 05/05/2018 BASIC METABOLIC PANEL 01/06/2018 MRI : Brain,Pituitary 03/30/2016 PROLACTIN 03/30/2016 PROLACTIN 05/03/2016 PROLACTIN 09/03/2016 PROLACTIN 12/03/2016 PROLACTIN 06/03/2017 PROLACTIN 03/04/2017 PROLACTIN 01/06/2018 PROLACTIN 02/03/2018 Insurance Providers Payer Name Payer Address Payer Phone Subscriber Number Group Number Insured Name Patient Relationship to Insured Coverage Start Date Coverage End Date [employer] [place] Medicaid [address] [place] [address] [id number] Dawna Daniels Self - patient is the insured Medical (General) History Medical History History ICD Code Galactohea Depression Giddiness , Vertigo Surgical History Surgery Date(Month/Year) Eye muscles x2 Tonsils and Adenoids Tubal Ligation Nova Sure Procedure Bladder Sling Hospitalization History Reason Date(Month/Year) See surgical HX Childbirth 3 day stay- Liver/ gallbladder issues- L [facility] 07/23/2016
--- OUTSIDE RECORDS SUMMARY | 2025-03-24 09:29 | XMS_ITS | Clinical Summary ---
Author Organization Healthcare Address [address] [place] [address] Care Team Providers Care Staffing Consultant Name Role Phone Clifton Miriam Robe VILLANUEVA Primary Care Provider [phone] Social History Tobacco Use Types Packs/Day Years [...] 01/22/2004 [facility]-Cervical Cancer Screening 2013 [facility]-HPV/Cotest 2013 [id number] Vaccine (1 - 20 24-25 season) 2024 [facility]-Influenza Vaccine (#1) 2025 06/25/2024 [facility]-Zoster Vaccines (1 of 2) 2033 [facility]-HIB Vaccines Aged Out No longer e [...] patient's age to complete this topic Insurance MEDICARE Care Teams Staffing Consultant Relationship Specialty Start Date End Date Miriam Lazo APRN [address] [id number] [phone] PCP - General 07/20/24
--- OUTSIDE RECORDS SUMMARY | 2025-03-24 09:29 | XMS_ITS | Clinical Summary ---
Author Organization [facility] Address [address] [facility] [facility], [address] [place] [address] Care Team Providers Care Bandsaw Operator Name Role Phone Marisa Newberry APRN, CNP Primar y Care Provider Allergies Active Allergy Reactions Criticality Noted Date Comments Aspirin Nausea And Vomiting Low 04/03/2024 Nsaids Nausea And Vomiting Low 04/03/2024 Medications fluticasone (FLONASE) 50 MCG/ACT nasal spray 2 sprays by Each Nostril route daily 16 g 05/02/2024 Active acetaminophen (TYLENOL) 500 MG tablet Take 2 tablets by mouth every 6 hours as needed for Pain or Fever 360 tablet 1 05/02/2024 Active Social History Tobacco Use Types Packs/Day Years Used Date Smoking Tobacco: Never Assessed AUDIT-C Answer Date Recorded Q1: How often do you have a drink containing alcohol? Never 05/02/2024 Q2: How many drinks containi ng alcohol do you have on a typical day when you are drinking? Patient does not drink Q3: How often do you have si x or more drinks on one occasion? Never 05/02/2024 Comments Unknown Sex and Gender Information Value Date Recorded Sex Assigned at Not on file Legal Sex Female 10:40 AM EDT Gender Identity Not on file Sexual Orientation Not on file Last Filed Vital Signs Vital Sign Reading Time Taken Comments Blood Pressure 129/84 05/02/2024 3:47 PM EDT Pulse 70 05/02/2024 3:47 PM EDT Temperature 36.7 C (98 F) 05/02/2024 3:47 PM EDT Respiratory Rate 18 05/02/2024 3:47 PM EDT Oxygen Saturation 98% 05/02/2024 3:47 PM EDT Inhaled Oxygen Concentration - - Weight 40.8 kg (90 lb) 05/02/2024 3:44 PM EDT Height 152.4 cm (5') 05/02/2024 3:44 PM EDT Body Mass Index 17.58 05/02/2024 3:44 PM EDT Plan of Treatment Health Maintenance Due Date Last Done Comments Depression Screen 1995 Varicella vaccine (1 of 2 - 13+ 2-dose series) 01/22/1996 HIV screen 1998 Hepatitis C screen 2001 Hepatitis B vaccine (1 of 3 - 19+ 3-dose series) 2002 Pap smear 01/22/2004 Cervical cancer screen 2013 HPV (without or with Pap) 2013 Lipids 2023 COVID-19 Vaccine ( - season) 2024 DTaP/Tdap/Td vaccine (2 - Td or Tdap) 05/05/2024 05/05/2014 Annual Wellness Visit (Medicare Advantage) 08/26/2024 Flu vaccine (#1) 03/26/2025 05/20/2023, , 05/09/2020, Additional history exists Breast cancer screen 05/31/2025 05/31/2023, 09/30/19 16 HPV vaccine Aged Out No longer eligi ble based on patient's age to complete this topic Hepatitis A vaccine Aged Out No longe r eligible based on patient's age to complete this topic Hib vaccine Aged Out No longer eligi ble based on patient's age to complete this topic Meningococcal (ACWY) vaccine Aged Out No longer eligible based on patient's age to complete this topic Meningococcal B vaccine Aged Out No l onger eligible based on patient's age to complete this topic Pneumococcal 0-49 years Vaccine Aged Out No longer eligible based on patient's age to complete this topic Polio vaccine Aged Out No longer elig ible based on patient's age to complete this topic Insurance [facility] [place] [address] Care Teams Bandsaw Operator Relationship Specialty Start Date End Date Marisa Newberry, FLOORWORKER LASTING - COMPUTER NUMERICAL CONTROL OPERATOR [address] [address] PCP - General 04/03/24
--- NOTE | 2025-03-24 09:44 | EXP.PAIN.SOA ---
[facility] Disclaimer: The information contained in this section may have been updated after the patient was seen, as this information can be updated by other users. Medical History Hx of varicose veins of lower extremity Cholecystectomy planned Itxyf-5-tlzlvpvdmkh deficiency SVT (supraventricular tachycardia) Bipolar 1 disorder Surgical History History of carpal tunnel surgery Hx of cholecystectomy History of tonsillectomy and adenoidectomy History of hysterectomy Gastric bypass status for obesity Social History Smoking Status: Never smoker alcohol intake: never substance use type: marijuana current occupational status: other Travel in the last 8 weeks?: None PM Subjective & Objective Subjective Subjective:: Patient is a pleasant 40-year-old female who presents today for worsening low back pain. She rates her pain today a 7 out of 10. She denies any new falls or injuries. She does state that she is having increased numbness that radiates down her left entire leg with burning sensations. She does state it is interfering with her ability perform activities of daily living such as cooking and cleaning. She does state that it goes into the right leg some however just not as severe. Patient does also states she has been having some increased burning stinging sensation in her upper arms as well. Patient does state that she would like to see about doing injections. Patient has tried and failed conservative therapy including continued at home stretching exercises for longer than 12 weeks. Patient is prescribed baclofen 5 mg 3 times a day from our office. She denies any side effects. Her Dejon has been reviewed and is appropriate. Review of Systems: General: No recent weight changes, no fever, no sleep disturbances Respiratory: No cough, no shortness of air, no recurring pulmonary infections Cardiovascular/peripheral vascular: No chest pain, no palpitations, no edema, no shortness of breath Gastrointestinal: No new onset incontinence, normal bowel movements reported Genitourinary: No new onset incontinence Musculoskeletal: Low back pain, bilateral leg numbness tingling Psy iatric: [Normal mood/affect] Neurological: [Denies weakness in extremities], [denies balance issues] Pain at rest (0-10 scale): 7 Objective Objective:: Physical Exam: General: Alert and oriented x3, no acute distress, pleasant and cooperative Lungs: Respirations even and unlabored, symmetrical chest expansion Eyes: PERRL Musculoskeletal: Flexion and extension of lumbar [spine] somewhat guarded secondary to pain, [antalgic gait noted] positive leg raise Neurological: Speech clear, no gross sensory deficit Has patient had previous pain injection?: No Conservative treatment options previously tried: Home exercise plan Length of treatment: Longer than 12 weeks Meds Home Medications and Allergies Home Medications ?Medication ?Instructions ?Recorded ?Confirmed ?Type lamotrigine 100 mg tablet 100 mg PO HS 10/01/24 03/22/25 History vitamin#30 30 mg iron-10 1 cap PO DIRECTED 10/29/24 03/22/25 History mg iron-folic acid 1 mg-omg3 capsule vitamin E (dl, acetate) 45 mg (100 45 mg PO DAILY 10/29/24 03/22/25 History unit) capsule venlafaxine 37.5 mg tablet 37.5 mg PO DAILY 10/30/24 03/22/25 History diltiazem HCl 120 mg capsule,24 120 mg PO DAILY #30 caps 11/19/24 03/22/25 Rx hr,extended release hydrocortisone 2.5 % topical 2.5 applic topical DIRECTED 11/19/24 03/22/25 History ointment triamcinolone acetonide 0.1 % 1 applic topical BID PRN Skin 11/19/24 03/22/25 History topical ointment Condition baclofen 5 mg tablet 5 mg PO TID #90 tabs 01/06/25 03/22/25 Rx ondansetron 4 mg disintegrating 4 mg PO Q8H PRN 01/28/25 03/22/25 History tablet estradiol 0.05 mg/24 hr weekly 1 patch transdermal WEEKLY #4 ea 02/03/25 03/22/25 Rx transdermal patch (Climara) estradiol 0.01% (0.1 mg/gram) See Rx Instructions .Route 03/02/25 03/22/25 Rx vaginal cream .COMPLEX #43 grams omeprazole magnesium 20 mg 40 mg (2 x 20 mg) PO DAILY 90 days 03/03/25 03/22/25 Rx tablet,delayed release #180 tabs New Prescriptions to Start Prescriptions: Allergies Allergy/AdvReac Type Severity Reaction Status Date / Time aspirin Allergy Dizziness Verified 03/22/25 14:53 NSAIDS (Non-Steroidal AdvReac Other Verified 03/22/25 14:53 Anti-Inflamma Assessment and Plan *Assessment and plan (1) Back pain: Status: Acute Category: Medical Code(s): M54.9 - Dorsalgia, unspecified (2) Lumbar radiculopathy: Status: Acute Category: Medical Code(s): M54.16 - Radiculopathy, lumbar region Plan Patient is experiencing worsening pain in her low back with numbness and tingling into her lower extremities. Patient did have limited range of motion of her lumbar spine with a positive leg raise. I did discuss with patient that I do believe they would benefit from a lumbar epidural steroid injection. Risk and benefits were discussed with patient and the patient would like to proceed forward with this plan of care. Patient is not on any blood thinners. Patient has tried and failed conservative therapy including oral medications, heat and ice, topicals and continued at home stretching exercise for longer than 12 weeks. We did also send her with physician guided exercises for her low back and leg symptoms. Patient has had physical therapy in the past. Patient has had chronic back pain for longer than 6 months. Patient has not had any epidurals from our office to compare to. We will schedule the patient for an LESI L4-L5 under fluoroscopy. Patient has been instructed to contact the clinic with any concerns before the next appointment. Dr. Duncan has reviewed this note and agrees with this plan of care. This note was dictated using voice recognition software and make contain errors or omissions. All injections are used with Lidocaine, Bupivacaine and dexamethasone. Occasionally urine drug screen is needed to verify patient's compliance with our office pain contract. This is ordered based off specific treatments related to chronic pain with the potential to abuse certain medications.
[2025-03-24 10:12] VITALS: BP 112/73; PULSE 62; RESP 18; O2SAT 98; BMI 20.2
== END 2025-03-24 23:59 | disposition home or self-care (01) ==
PROVIDERS: PCP Nurse Practitioner Family; Visit Provider Nurse Practitioner Family
DX: M54.16 Radiculopathy, lumbar region (principal)
CPT/HCPCS: 99212; G0463

== ENCOUNTER 2025-04-10 17:03 | Emergency (ER) | payer MEDICARE, MEDICAID, SELFPAY ==
[2025-04-10] VITALS (7 sets, daily range): BP systolic 96–113; BP diastolic 62–79; PULSE 52–81; RESP 14–16; TEMP 36.9–37.1; O2SAT 90–100; BMI 21.4
--- OUTSIDE RECORDS SUMMARY | 2025-04-10 17:10 | XMS_ITS | Clinical Summary ---
Author Organization [facility] Address [address] [place] [address] Care Team Providers Care Rn Acute Care Name Role Phone Clifton Miriam Robe VILLANUEVA Primary Care Provider [phone] Social History Tobacco Use Types Packs/Day Years [...] Screening 1983 [facility]-Medicare Annual Wellness (AWV) 1983 [facility]-/Child/Adol SDOH Screenings 1983 [facility]-Varicella Vaccines (1 of 2 - 13+ 2-dose series) 01/22/1996 [facility]- SDOH Screenings 2001 [facility]-Adult SDOH Screenings 2001 [facility]-DTaP,Tdap,and Td Vaccine s (1 - Tdap) 2002 [facility]-Hepatitis B Vaccines (1 of 3 - 19+ 3-dose series) 2002 [facility]-Pap Smear 01/22/2004 HPV Vaccines (1 - 3-dose SCD M series) 2010 [facility]-Cervical Cancer Screening 2013 [facility]-HPV/Cotest 2013 [id number] Vaccine (1 - 20 24-25 season) 2024 [...] complete this topic Insurance MEDICARE Care Teams Rn Acute Care Relationship Specialty Start Date End Date Miriam Lazo APRN [address] [phone] PCP - General 07/20/24
--- OUTSIDE RECORDS SUMMARY | 2025-04-10 17:10 | XMS_ITS | Patient Health Record ---
Author Organization Delbert Walker MD S Address [address] [facility] [address] [place], [place] [id number] Care Team Providers Care Metalizing Machine Operator Name Role Phone Shaun Recinos Unavailable Unavailable [...] Active confirmed Problem Major depression, single episode (07737829) Major depressive disorder, single episode, unspecified (F32.9) Active confirmed Problem Hyperprolactinemia (270970517) Hyperprolactinemia (E22.1) Active confirmed Plan Of Treatment Pending Test Test Name Order Date TSH+Free T4 03/30/2016 TSH+Free T4 12/03/2016 TSH+Free T4 06/03/2017 TSH+Free T4 03/04/2017 TSH+Free T4 09/03/2016 TSH+Free T4 05/03/2016 Comp. Metabolic Panel (14) 03/04/2017 Comp. Metabolic Panel (14) 09/03/2016 Comp. Metabolic Panel (14) 12/03/2016 Comp. Metabolic Panel (14) 03/30/2016 Basic Metabolic Panel (8) 02/03/2018 MRI : Brain with and without contrast Ultrasound : Thyroid Sonography B-Scan 0 05/03/2016 TSH+Free T4 05/05/2018 TSH+Free T4 02/03/2018 TSH+Free T4 01/06/2018 Basic Metabolic Panel (8) 06/03/2017 PROLACTIN 05/05/2018 BASIC METABOLIC PANEL 05/05/2018 BASIC METABOLIC PANEL 01/06/2018 MRI : Brain,Pituitary 03/30/2016 PROLACTIN 12/03/2016 PROLACTIN 03/30/2016 PROLACTIN 06/03/2017 PROLACTIN 03/04/2017 PROLACTIN 05/03/2016 PROLACTIN 09/03/2016 PROLACTIN 01/06/2018 PROLACTIN 02/03/2018 Insurance Providers Payer Name Payer Address Payer Phone Subscriber Number Group Number Insured Name Patient Relationship to Insured Coverage Start Date Coverage End Date [employer] [place] Medicaid [address] [place] [address] [id number] Dawna Daniels Self - patient is the insured Medical (General) History Medical History History ICD Code Galactohea Depression Giddiness , Vertigo Surgical History Surgery Date(Month/Year) Eye muscles x2 Tonsils and Adenoids Tubal Ligation Nova Sure Procedure Bladder Sling Hospitalization History Reason Date(Month/Year) See surgical HX Childbirth 3 day stay- Liver/ gallbladder issues- L [facility] 07/23/2016
--- OUTSIDE RECORDS SUMMARY | 2025-04-10 17:10 | XMS_ITS | Clinical Summary ---
Author Organization [facility] Address [address], [address] [place] [address] Care Team Providers Care Slot Technician Name Role Phone Marisa Newberry APRN, CNP [...] screen 05/31/2025 05/31/2023, 09/30/19 16 HPV vaccine (No Doses Required) Completed Hepatitis A vaccine Aged Out No longe [...] patient's age to complete this topic Insurance [employer] MEDICARE [facility] Care Teams Slot Technician Relationship Specialty Start Date End Date Marisa Newberry APRN - COMMUNITY SERVICE PATROL OFFICER [address] [place] [id number] PCP - General 04/03/24
--- NOTE | 2025-04-10 17:28 | XR_ITS ---
PROCEDURE INFORMATION: Exam: XR Right Hand Exam date and time: 04/10/2025 5:47 PM Age: 40 years old Clinical indication: Other: Partial amputation TECHNIQUE: Imaging protocol: Radiologic exam of the right hand. Views: 1 or 2 views. COMPARISON: No relevant prior studies available. FINDINGS: Limitations: Lateral view limited due to overlap of the fingers. Bones/joints: No acute fracture or dislocation. Soft tissues: Soft tissue swelling and soft tissue gas overlying the 3rd distal phalanx. IMPRESSION: 1. Soft tissue swelling and soft tissue gas overlying the 3rd distal phalanx. 2. No acute fracture or dislocation.
[2025-04-10] MEDS: TRANEXAMIC ACID 1,000 MG/10 ML VIAL 500 MG TP ×2 (17:39→18:24)
[2025-04-10] MEDS: TET/DIPHTH/PERT-ADULT 0.5ML SYRINGE 0.5 ML IM (17:39)
[2025-04-10] MEDS: HYDROCODONE/APAP 5/325 MG TABLET 1 TAB PO (17:42)
--- NOTE | 2025-04-10 17:47 | ED_ITS ---
<Statement entered by Gunner Terry MD - 04/10/25 23:22> I was consulted by the [facility], and we discussed the complexity of the problems being addressed. I approve the treatment and management plan for this patient's care in the emergency department, thus performing a substantive portion of the medical decision making. Gunner Terry MD Discharge Plan Disposition Patient Disposition: Home, Self-Care Prescriptions Prescriptions: New bacitracin 500 unit/gram ointment 1 applic topical DAILY 7 Days Qty: 14 0RF No Action PNV [id number] 30 mg iron-10 mg iron-1 mg capsule 1 cap PO DIRECTED vitamin E (dl, acetate) 45 mg (100 unit) capsule 45 mg PO DAILY hydrocortisone 2.5 % ointment 2.5 applic topical DIRECTED Patient Comments: APPLY OINTMENT EXTERNALLY TO AFFECTED AREA TWICE DAILY FOR 2 WEEKS AND THEN TAKE A 1 WEEK BREAK diltiazem HCl 120 mg capsule,extended release 24hr 120 mg PO DAILY Qty: 30 5RF estradiol [Climara] 0.05 mg/24 hr patch weekly 1 patch transdermal WEEKLY Qty: 4 2RF lamotrigine 100 mg tablet 100 mg PO HS Patient Comments: TAKE 1 TABLET BY MOUTH ONCE DAILY AT NIGHT AT BEDTIME DIRECTED estradiol 0.01 % (0.1 mg/gram) cream See Rx Instructions .ROUTE .COMPLEX Qty: 43 4RF Dose Instruction: DISCARD APPLICATER AND APPLY BLUEBERRY SIZE AMOUNT OF CREAM TO THE OPENING OF THE VAGINA Rx Instructions: DISCARD APPLICATER AND APPLY BLUEBERRY SIZE AMOUNT OF CREAM TO THE OPENING OF THE VAGINA omeprazole magnesium 20 mg tablet,delayed release (DR/EC) 40 mg PO DAILY 90 Days Qty: 180 1RF venlafaxine 37.5 mg tablet 37.5 mg PO DAILY baclofen 5 mg tablet 5 mg PO TID Qty: 90 2RF Referrals Follow up/Referrals: Provider,Referral, [Primary Care Provider, Medical] - See instructions Activity Restrictions/Add. Instructions Additional Instructions/Restrictions: Today you were evaluated in the emergency department for a partial amputation of your middle finger. You had cautery performed. Please leave the dressing on for the next 1 hour. You may remove the dressing and apply the new nonadherent and Rivera wrap dressing. If the bleeding continues, please return to the ED. This wound will take approximately 2 to 4 weeks to heal. Follow-up with your PCP Saturday morning. You may take acetaminophen ibuprofen [id number] for symptomatic relief. Clinical Impressions Clinical Impression: Finger injury Instructions Patient Instructions: Minor Wounds (Alternative Therapy) Print Language Print Language: Ukrainian Discharge ED Provider: Gunner Terry General Adult HPI General Chief complaint: Wound/Laceration Stated complaint: Laceration Time Seen by Provider: 04/10/25 17:07 Mode of Arrival: EMS Source of Information: Patient and EMS Description of Symptoms (Recalled from ER Triage Doc. by RN): EMS was called out for pt with a laceration to her right middle finger. EMS reported that when got there they noticed that the pt had cut of the tip of her right middle finger. EMS dressed the laceration. 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 Unknown last tetanus shot. History of Present Illness HPI narrative: patient is a 40-year-old female PMHx NAFLD, depression, bipolar, symptomatic SVT who presents to the ED after cutting her right distal middle finger while cutting potatoes. Patient arrived via EMS, she had an 18-gauge established and was given 100 mcg of fentanyl and route. Related Data Home Medications ?Medication ?Instructions ?Recorded ?Confirmed lamotrigine 100 mg tablet 100 mg PO HS 10/01/24 vitamins 30 30 mg iron-10 1 cap PO DIRECTE D 10/29/24 04/08/25 mg iron-folic acid 1 mg-om3 capsule vitamin E (dl, acetate) 45 mg (100 45 mg PO DAILY 02/1704/08/25 unit) capsule venlafaxine 37.5 mg tablet 37.5 mg PO DAILY 10/30/24 0 04/08/25 hydrocortisone 2.5 % topical 2.5 applic topical DIR ECTED 11/19/24 04/08/25 ointment Previous Rx's ?Medication ?Instructions ?Recorded diltiazem HCl 120 mg capsule,24 120 mg PO DAILY #30 ca ps 11/19/24 hr,extended release baclofen 5 mg tablet 5 mg PO TID #90 tabs 5 estradiol 0.05 mg/24 hr weekly 1 patch transdermal LUZ MATHIS #4 ea 02/03/25 transdermal patch (Climara) estradiol 0.01% (0.1 mg/gram) See Rx Instructions .Rou te 03/02/25 vaginal cream .COMPLEX #43 grams omeprazole magnesium 20 mg 40 mg (2 x 20 mg) PO DAILY 90 days 03/03/25 tablet,delayed release #180 tabs bacitracin 500 unit/gram topical 1 applic topical ADAL Y 7 days #14 04/10/25 ointment grams Allergies Allergy/AdvReac Type Severity Reaction Status Date / Time aspirin Allergy Dizziness Verified 04/08/25 14:56 NSAIDS (Non-Steroidal AdvReac Other Verified 04/08/25 14:56 Anti-Inflamma PFSH [facility] Disclaimer: The information contained in this section may have been updated after the patient was seen, as this information can be updated by other users. Medical History (Updated 04/10/25 @ 19:56 by Rosalinda Love APRN) Asthma History of smoking for 6-10 years Dyspnea on exertion Phdvt-9-[id number] deficiency Hx of varicose veins of lower extremity Cholecystectomy planned Tjrlz-[id number] deficiency SVT (supraventricular tachycardia) Bipolar 1 disorder Surgical History History of carpal tunnel surgery Hx of cholecystectomy History of tonsillectomy and adenoidectomy History of hysterectomy Gastric bypass status for obesity Social History Smoking Status: Never smoker alcohol intake: never substance use type: marijuana current occupational status: other Travel in the last 8 weeks?: None Have you lived/traveled outside [place] in past 30 days?: No Contact w/someone who lives/traveled outside [place] past 30 days?: No Exposure to someone with infectious disease in past 14 days?: No Do you have a fever (greater than 100.4 F or 38 C)?: No Have you tested positive for COVID-19?: No Exposed to someone with COVID-19 in past 14 days?: No Do you have a sore throat?: No Do you have a cough?: No Do you have any weakness?: No Do you have any diarrhea?: No Are you experiencing any unusual bleeding?: Yes Do you have any muscle aches/pain?: No Do you have any abdominal pain?: No Are you experiencing loss of taste or smell?: No Other Medical History Have you received the Flu Vaccine for this season: Yes Have you received the Pneumonia Vaccine: No ROS Obtained: Yes Systems reviewed as appropriate & no additional complaints except as documented Physical Exam General General appearance: alert Head Head exam: normocephalic Eye Eye exam: Present PERRL and EOMI Respiratory Respiratory exam: Present normal lung sounds bilaterally Cardiovascular Cardiovascular exam: Present regular rate Abdominal Exam Abdominal exam: Present soft; Absent tenderness Extremities Exam Extremities exam: Present full ROM Neurological Exam Neurological exam: Present alert and oriented X3 Skin Skin exam: Present other (R distal middle finger minor partial amputation ) Medical Decision Making Medical Records Screening: Per USPSTF and CDC recommendations, given the prevalence of disease in our region, it is our hospital?s policy to screen for HIV and viral Hepatitis for all patients aged 18 and over and those with ongoing risk factors. Dejon Inquiry Pt receiving controlled substance: No Vital Signs: 04/10/25 17:05 04/10/25 17:17 04/10/25 17:45 Temperature 98.7 F 98.7 F Temperature Source Oral Oral Pulse Rate 81 67 Pulse Rate [Right] 81 Respiratory Rate 14 14 Blood Pressure 104/76 L 113/79 Blood Pressure [Right Arm] 104/76 L Blood Pressure Mean Blood Pressure Mean [Right Arm] 85 Blood Pressure Source Automatic Cuff Blood Pressure Source [Right Arm] Automatic Cuff Blood Pressure Position Supine Blood Pressure Position [Right Arm] Supine 02 Sat by Pulse Oximetry 98 98 100 Oxygen Delivery Method Room Air Room Air 04/10/25 18:00 04/10/25 18:31 04/10/25 19:10 Temperature Temperature Source Pulse Rate 60 58 L 80 Pulse Rate [Right] Respiratory Rate 16 Blood Pressure 108/74 L 100/68 L 96/62 L Blood Pressure [Right Arm] Blood Pressure Mean 78 Blood Pressure Mean [Right Arm] Blood Pressure Source Blood Pressure Source [Right Arm] Blood Pressure Position Blood Pressure Position [Right Arm] 02 Sat by Pulse Oximetry 90 L 98 100 Oxygen Delivery Method Room Air Orders (Tests/Meds): ED MEDICATIONS Discontinued Medications Generic Name Dose Route Start Last Admin Trade Name Freq PRN Reason Stop Dose Admin Hydrocodone Bitart/Acetaminophen 1 tab 04/10/25 17:32 04/10/25 17:42 Hydrocodone/Apap 5/325 Mg Tablet PO 04/10/25 17:33 1 tab ONCE ONE Administration Tranexamic Acid 1,000 mg/ 260 mls @ 32.5 mls/hr 04/10/25 17:07 04/10/25 17:53 Sodium Chloride IV 04/10/25 17:08 Not Given ONCE ONE Lidocaine HCl 10 ml 04/10/25 18:22 04/10/25 18:23 Lidocaine 1% 10ml Mdv SUBCUT 04/10/25 18:23 10 ml ONCE ONE Administration Tetanus/Reduced Diphtheria/Acell Pertussis 0.5 ml 04/10/25 17:07 04/10/25 17:39 Tet/Diphth/Pert-Adult 0.5ml Syringe IM 04/10/25 17:08 0.5 ml .ONCE ONE Administration Tranexamic Acid 500 mg 04/10/25 18:00 04/10/25 17:39 Tranexamic Acid 1,000 Mg/10 Ml Vial TP 04/10/25 18:01 500 mg ONCE ONE Administration Tranexamic Acid 500 mg 04/10/25 18:22 04/10/25 18:24 Tranexamic Acid 1,000 Mg/10 Ml Vial TP 04/10/25 18:23 500 mg ONCE ONE Administration ORDERS Category Date Time Status Hand XR right 2 views [XR hand RT 2V] Stat Exams 04/10/25 17:28 Completed Medical Decision Narrative: In summary, patient is a 40-year-old female PMHx NAFLD, depression, bipolar, symptomatic SVT who presents to the ED after cutting her right distal middle finger while cutting potatoes. Patient arrived via EMS, she had an 18-gauge established and was given 100 mcg of fentanyl and route. Patient denies any other injuries. Patient states she is in severe pain. Denies fever, chills, body aches, chest pain, shortness of breath, abdominal pain. Upon initial evaluation patient is alert, oriented hemodynamically stable. She has a minor, partial amputation of her right distal third finger, nailbed is not involved, active bleeding noted. Will apply TXA to gauze and apply pressure dressing. Wound cleaned and Hibiclens prior to pressure dressing. Upon reassessment, although bleeding has slowed down it has not completely stopped, patient offered cautery with the Bovie, she declined at this time. Advised her we will apply additional TXA after I perform a digital block and apply a new pressure dressing. Procedure performed. Right third digit cleaned with iodine, digital block performed with 1.5 mL 1% lidocaine. Patient tolerated well. TXA applied and new pressure dressing on. I independently interpreted the right hand x-ray is no acute fracture. After second pressure dressing removed, still a very slow bleeding. Used a Bovie to cauterize the area, patient tolerated the procedure well. We reapplied a dressing, I advised patient and spouse to remove the dressing and check again in 1 hour. They were given extra dressing supplies to change the dressing. I advised her I sent an antibiotic ointment to the pharmacy which she can start in the morning. Discussed wound care. We discussed following up with PCP Saturday. Discussed return precautions to the ED and patient verbalized understanding. Critical Care Critical Care Time Critical Care Time: No
--- NOTE | 2025-04-10 17:52 | PC.NURSE ---
called and spoke with jeffrey at [facility] about txa order, corrected per pharmacist.
[2025-04-10] MEDS: LIDOCAINE 1% 10ML MDV 10 ML SUBCUT (18:23)
--- NOTE | 2025-04-10 19:10 | PC.NURSE ---
Resumed care from RUSS Flores
--- NOTE | 2025-04-10 19:49 | PC.NURSE ---
pressure dressing removed to access bleeding, wound still actively bleeding, provider aware, at the bedside to perform cauterization
== END 2025-04-10 20:06 | disposition home or self-care (01) ==
PROVIDERS: Emergency Provider Student in an Organized Health Care Education/Training Program
DX: S61.212A Laceration without foreign body of right middle finger without damage to nail, initial encounter (principal); W26.0XXA Contact with knife, initial encounter
CPT/HCPCS: 73120; 90471; 90715; 99283

== ENCOUNTER 2025-04-20 13:52 | Day surgery (SDC) | payer MEDICARE, MEDICAID, SELFPAY ==
[2025-04-20 14:04] VITALS: BP 104/76; PULSE 66; RESP 18; O2SAT 100; BMI 20.5
--- NOTE | 2025-04-20 14:21 | P.PCN_ITS ---
Procedure Date: 04/20/25 Time: 14:20 Anesthesiologist:: Asad Mcgowan CRNA Complications:: None Pre-procedure Diagnosis:: Degenerative disc lumbar spine multilevels for lumbar radiculopathy. Post-procedure Diagnosis:: Same. Indications for Procedure:: Patient is a very pleasant 40-year-old female who comes our clinic today for lumbar epidural steroid injection. Patient describes low lumbar back pain as well as bilateral hip and leg radicular symptoms as constant, dull, aching, in termittent. She rates her pain 7/10. Procedure Details:: Procedure: Lumbar epidural steroid injection under fluoroscopy Informed consent was obtained and the risks and benefits of the procedure were explained to the patient. The patient was taken to the procedure room and noninvasive monitors placed, including noninvasive blood pressure cuff and pulse oximeter. The back was viewed using C-arm Fluoroscopy and prepped using Chloraprep as a cleansing solution and the L4-L5 interspace was palpated. Skin and subcutaneous tissues were anesthetized using lidocaine 1.5% and a 25-gauge needle. After this, an 18-gauge Touhy epidural needle was placed into the L4-L5 interspace and advanced using fluoroscopic guidance and loss of resistance to air until the epidural space was encountered. After confirmation of needle placement in the epidural space, with dye, a solution containing normal saline, 3 mL and dexamethasone 10 mg were incrementally injected into the lumbar epidural space. The patient tolerated the procedure well with no complications. The patient was observed in the Pain Clinic and then discharged home neurologically intact. Plan and Disposition:: Patient was discharged without incident.
[2025-04-20 14:27] VITALS: BP 119/47; PULSE 61; RESP 16; O2SAT 100
[2025-04-20] MEDS: DEXAMETHASONE 10MG/ML 1ML VIAL 10 MG (14:49)
[2025-04-20 14:50] VITALS: BP 102/79; PULSE 57; RESP 18; O2SAT 98
[2025-04-20 14:58] VITALS: BP 102/79; PULSE 57; RESP 18; O2SAT 98
== END 2025-04-20 14:27 | disposition home or self-care (01) ==
PROVIDERS: PCP Nurse Practitioner Family; Visit Provider Nurse Anesthetist, Certified Registered
DX: M51.16 Intervertebral disc disorders with radiculopathy, lumbar region (principal); F31.9 Bipolar disorder, unspecified; Z88.6 Allergy status to analgesic agent; Z79.899 Other long term (current) drug therapy
CPT/HCPCS: 62323; J1100

== ENCOUNTER 2025-04-24 07:32 | Emergency (ER) | payer MEDICARE, MEDICAID, SELFPAY ==
--- OUTSIDE RECORDS SUMMARY | 2009-09-28 20:00 | XMS_ITS | Continuity of Care Document ---
[facility] Address [address] [place] [address] Phone Care Team Providers Care Insulation Board Calender Operator Name Role Phone Kelli Leahy MD Unavailable Unavailable Procedures Procedure Date Tdap Boostrix 10-18 [facility] Tdap Boostrix 10-18 [facility] Tdap Boostrix 10-18 [facility] Tdap Boostrix 10-18 [facility] Tdap Boostrix 10-18 [facility] Tdap Boostrix 10-18 [facility] MMR [facility] MMR [facility] MMR [facility] Flu TIV Coalition MMR Private Tdap 19-64 [...] Copied on Encounter OFFICE/OUTPAT IENT VISIT, EST [facility] Department , [address], [place], [place], [id number], tel:[phone] [facility] Dept Immunization No Information 0 Armond Pereira. [address], [place], [place], [id number] , . tel:[phone] Family History Family Member Type Diagnosis Age At Onset No Information Immunizations Vaccine Date Status Comments flu (split) preservative nicho e, 3 yrs or older administered Note: Had to manuall y enter exp. date, lot #, cognos, and brand name. YOANDY LOPEZ RN ; Source: New Immunization Record Tdap administered Source: New Imm unization Record MMR administered Source: New Imm unization Record flu (split) preservative nicho e, 3 yrs or older cancelled Source: New Immuniza tion Record Flu (split) (3 yrs or older) cancelled Source: New Immunization Record Payers Payer name Insurance type Covered democrat ID Authoriza tion(s) [facility] [id number] Social History Type Description Quantity Date Captured [...]
--- OUTSIDE RECORDS SUMMARY | 2025-04-13 04:30 | XMS_ITS | Continuity of Care Document ---
Author Organization [facility] Address [address] [place] [address] Phone Care Team Providers Care Communication Instructor Name Role Phone Clifton MSN, GAS CHECK PAD MAKER, Miriam Unavailable Unavai lable Allergies, Adverse Reactions, Alerts Substance Reaction Status Criticality ASPIRIN Active No Information Medications Medication Instructions Dosage Effective Dates (start - stop) Status Comments Vitamin D2 1,250 mcg (50,000 unit) capsule take 1 capsule by oral route every week for 12 weeks 1 capsule - Active mupirocin 2 % topical ointment apply by topical route 2 times every day a small amount to the affected area Not Available - Active ondansetron [address] 1 tablet by translingual route every 8 hours on top of the tongue where they will dissolve, then swallow 4 MG - Active estradiol 0.0375 mg/24 hr weekly transdermal patch apply 1 patch by transdermal route every week cyclically, 3 weeks on and 1 week off 1 patch - Active omeprazole 40 mg capsule,delayed release take 1 capsule by oral route every day before a meal 40 MG - Active Lamictal 100 mg tablet take 1 tablet by oral route every day 100 MG - Active Procedures Procedure Date ROUTINE VENIPUNCTURE OFFICE/OUTPATIENT VISIT, EST Advance Directives Directive Yes / No Effective Date File Name No Information Encounters Encounter Description Practice Location Reason(s) For Visit Diagnoses Date Provider OFFICE/OUTPA TIENT VISIT, EST [facility], [address] [place], [address], [place] tel:[phone] [facility] er f/u (chief complaint) Encounter for change of nonsurgical wound dressingAnxietyBody mass index [BMI] 20.0-20.9, adultAbnormal results of liver function studies 5 Lazo Miriam. [address], [place], [id number] , [place]. tel:[phone] [facility], [address] [place] [address], [facility], [place] tel:[phone] [facility] [place] follow up on labs (chief complaint) Body mass index [BMI] 19.9 or less, adultAbnormal results of liver function studiesPostmenopausal status 5 Lazo Miriam. [address], [place], [id number] , [place]. tel:[phone], [facility], tel:[phone] [facility] [place] fasting labs (chief complaint) Gastric bypass status for obesity Lazo Miriam. [address], [place], [id number] , [place]. tel:[phone], [facility], [place] tel:[phone] [facility] [place] No Information [address] Ant Rodas. [address] [place] [address], [id number] , . tel:[phone], [address], [place] tel:[phone] [facility] Referrel (chief complaint) Body mass index [BMI] 19.9 or less, yhqhrWucdf-3-mhuvomqqnnp deficiencyDyspnea, unspecified 5 Lazo Miriam. [address], [place], [id number] , [place]. tel: [phone] [facility], [address] [place] [address], [facility], tel:[phone] [facility] plaque psoriasis (chief complaint)c hest pains/palpi tations (chief complaint)E levated ALK phos/GERD (chief complaint) Plaque psoriasisFlushing associated w/ postprocedural menopauseGERD disease w/ esophagitis, w/o bleedingSinus bradycardiaBody mass index [BMI] 19.9 or less, adult 5 Lazo Miriam. [address], [place], [id number] , . tel: [phone] [facility], [address] [place] [address], [facility], tel:[phone] [facility] Medication Follow up (chief complaint)H ot Flashes (chief complaint)l ightheadnes s (chief complaint)w ebex (chief complaint) Body mass index [BMI] 19.9 or less, adultFlushing associated w/ postprocedural menopauseSyncope and collapseSinus bradycardia 5 Lazo Miriam. [address], [place], [id number] , . tel: [phone] [facility], [address] [place] [address], [facility], tel:[phone] [facility] [place] Follow up on Labs (chief complaint) Body mass index [BMI] 19.9 or less, adultAnxietyCervicalgiaD epressionFibromyalgia 4 Lazo Miriam. [address], [place], [id number] , . tel: [phone] [facility], [address] [place] [address], [facility], tel:[phone] [facility] [place] depression screening (chief complaint)P RAPARE (chief complaint)N ew to establish (chief complaint) Encounter for screening for depressionExtreme povertyUnavailability and inaccessibility of other helping agenciesUnavailability and inaccessibility of health-care facilitiesProblem related to primary support group, unspecifiedCervicalgiaDo rsalgiaPsoriatic arthritis mutilansPostmenopausal statusFibromyalgiaAnxiet yDepressionGastric bypass status for obesityEncounter for screening for diabetes mellitus Clifton Pineda. [address] [place], [place], [id number] , . tel: [phone] Family History Family Member Type Diagnosis Age At Onset Son Problem Alive and well Maternal grandfather Problem hx unknown Brother Problem Alive and well Brother Problem Depression Maternal grandmother Problem Bipolar, de pression, stroke, heart attack, smoker Daughter Problem Alive and well Paternal grandmother Problem Diabetes mellitus Mother Problem Arthritis Brother Problem Alive and well Sister Problem House Fire Son Problem Alive and well Daughter Problem Alive and well Paternal grandfather Problem Alcoholism Paternal grandfather Problem heart attack Paternal grandmother Problem Cancer, brain (Cause Of ) Mother Problem Alive and well Father Problem PreDiabetes, MS, Heartattack Mother Problem Back and Leg iss ues, Osteoporosis, Osteoarthritis, Bipolar Father Problem Alive and well Brother Problem Depression Immunizations Vaccine Date Status Comments SARS-COV-2 (COVID-19) vaccin e, mRNA, spike protein, LNP, bivalent booster, preservative free, 50 mcg/0.5 mL or 25 mcg/0.25 mL dose (Moderna) refused Source: New I mmunization Record Influenza Recombinant administered Source : Other Registry Payers Payer name Insurance type Covered republican ID Authoriza tion(s) [facility] Adv [employer] CI [id number] [facility] Adv [employer] CI [id number] Social History Type Description Quantity Date Captured Comments Alcohol Use Details Unknown Caffeine Use Details Unknown Tobacco Use Status No Information Smoking Status No Information Sex Female Sexual Orientation Bisexual Gender Identity Female Vital Signs Date / Time: Height Weight BMI Pulse Rate Blood Pressure Temperature Respiratory Rate Body Surface Area Head Circumference Head Circ. Percentile Wt./Óscar. Percentile BMI percentile Pulse Ox Inhaled Ox 9:07 AM 60.00 in 47.174 kg (104.00 lbs) 20.3 1 kg/m eter (2) 55 /min 107/73 mm[Hg] 98.30 F 18 /min 1.41 meter(2) 100 % Chief Complaint And Reason For Visit From encounter dated '04/13/2025 08:30'. er f/u (chief complaint). Description: Dawna is here today for an ER f/u from Saturday. [facility] for treatment of her middle right digit, after cutting the tip off with a city planning aide.Today the tissue is granulated, red, and appears to be healing well without signs of infection. Wound was cleansed with saline, bacitracin applied, and new non-adherent dressing applied. I gave her a finger splint for added protection to tip of finger. She tolerated all very well.She is also here for fasting lab collection. Plan Of Treatment Date Type Action Status Goal Lipid panel. Due on 026 due Goal CMP. Due on due Goal Influenza vaccine. Due on due Goal Pap/HPV testing. Due on due Goal Drug Abuse Scree cayden Test (DAST-10). Due on due Goal HPV testing. Due on 029 due Goal CBC. Due on due Goal Hepatitis C Screening due Goal HPV. Due on due Goal Tobacco Use Screening. Due o n due Goal Depression screening. Due on due Goal Vitamin D. Due on due Goal Tobacco screening. Due on due Goal Vitamin B12. Due on 025 due Goal Follow up Plan f or abnormal BMI (Less than 18.5, greater than 25). Due on due Goal TSH. Due on due Goal Obtain Height, Weight, and B OK. Due on due Goal Generalized Anxi ety Disorder - 7 (SOL-7). Due on due Goal Diabetes screening. Due on N due Goal HIV screen due Goal PAP. Due on due Goal Unhealthy drug use screening due Goal Tobacco Use Cess ation Counseling. Due on due Goal Hemoglobin (Pree edgardo/HR 9 months). Due on due Goal Hematocrit/Hemoglobin. Due o n due Goal Lifestyle education regardin g diet completed Goal Lipid panel. Due on 026 due Goal Unhealthy drug use screening due Goal CBC. Due on due Goal Vitamin D. Due on due Goal Generalized Anxi ety Disorder - 7 (SOL-7). Due on due Goal Vitamin B12. Due on 025 due Goal HPV. Due on due Goal HIV screen due Goal Follow up Plan f or abnormal BMI (Less than 18.5, greater than 25). Due on due Goal Hepatitis C Screening due Goal Pap/HPV testing. Due on due Goal Depression screening. Due on due Goal Diabetes screening. Due on N due Goal CMP. Due on due Goal Tobacco Use Cess ation Counseling. Due on due Goal Obtain Height, Weight, and B OK. Due on due Goal Drug Abuse Scree cayden Test (DAST-10). Due on due Goal HPV testing. Due on due Goal Tobacco Use Screening. Due o n due Goal PAP. Due on due Goal TSH. Due on due Goal Tobacco screening. Due on due Goal Lifestyle education regardin g diet completed Goal Lipid panel. Due on due Goal PAP. Due on due Goal HIV screen due Goal HPV. Due on due Goal Tobacco Use Screening. Due o n due Goal Tobacco screening. Due on due Goal CMP. Due on due Goal TSH. Due on due Goal Generalized Anxi ety Disorder - 7 (SOL-7). Due on due Goal Drug Abuse Scree cayden Test (DAST-10). Due on due Goal HPV testing. Due on due Goal CBC. Due on due Goal Follow up Plan f or abnormal BMI (Less than 18.5, greater than 25). Due on due Goal Vitamin D. Due on due Goal Obtain Height, Weight, and B OK. Due on due Goal Pap/HPV testing. Due on due Goal Tobacco Use Cess ation Counseling. Due on due Goal Hepatitis C Screening due Goal Unhealthy drug use screening due Goal Diabetes screening. Due on due Goal Vitamin B12. Due on due Goal Depression screening. Due on due Goal Tobacco screening. Due on due Goal CMP. Due on due Goal HPV testing. Due on due Goal TSH. Due on due Goal HPV. Due on due Goal CBC. Due on due Goal Generalized Anxi ety Disorder - 7 (SOL-7). Due on due Goal Vitamin B12. Due on due Goal PAP. Due on due Goal Tobacco Use Cess ation Counseling. Due on due Goal Depression screening. Due on due Goal Pap/HPV testing. Due on due Goal Drug Abuse Scree cayden Test (DAST-10). Due on due Goal Hepatitis C Screening due Goal Vitamin D. Due on due Goal Follow up Plan f or abnormal BMI (Less than 18.5, greater than 25). Due on due Goal Obtain Height, Weight, and B OK. Due on due Goal Lipid panel. Due on due Goal Tobacco Use Screening. Due o n due Goal HIV screen due Goal Diabetes screening. Due on N due Goal Unhealthy drug use screening due Goal Lipid panel. Due on due Goal Vitamin D. Due on due Goal Tobacco screening. Due on due Goal PAP. Due on due Goal Hepatitis C Screening due Goal Pap/HPV testing. Due on due Goal Tobacco Use Cess ation Counseling. Due on due Goal Tobacco Use Screening. Due o n due Goal HPV testing. Due on due Goal Follow up Plan f or abnormal BMI (Less than 18.5, greater than 25). Due on due Goal HPV. Due on due Goal Depression screening. Due on due Goal Vitamin B12. Due on due Goal Unhealthy drug use screening due Goal Generalized Anxi ety Disorder - 7 (SOL-7). Due on due Goal Diabetes screening. Due on N due Goal TSH. Due on due Goal Obtain Height, Weight, and B OK. Due on due Goal Drug Abuse Scree cayden Test (DAST-10). Due on due Goal HIV screen due Goal CBC. Due on due Goal CMP. Due on due Goal Lifestyle education regardin g diet completed Goal Tobacco screening. Due on due Goal HPV testing. Due on 029 due Goal Depression screening. Due on due Goal Follow up Plan f or abnormal BMI (Less than 18.5, greater than 25). Due on due Goal Generalized Anxi ety Disorder - 7 (SOL-7). Due on due Goal PAP. Due on due Goal Lipid panel. Due on 025 due Goal Drug Abuse Scree cayden Test (DAST-10). Due on due Goal Pap/HPV testing. Due on due Goal CBC. Due on due Goal Unhealthy drug use screening due Goal Diabetes screening. Due on N due Goal Hepatitis C Screening due Goal CMP. Due on due Goal Obtain Height, Weight, and B OK. Due on due Goal HIV screen due Goal Tobacco Use Screening. Due o n due Goal HPV. Due on due Goal TSH. Due on due Goal Tobacco Use Cess ation Counseling. Due on due Goal Vitamin D. Due on due Goal Vitamin B12. Due on due Goal Lifestyle education regardin g diet completed Goal Vitamin D. Due on due Goal Diabetes screening. Due on N due Goal Unhealthy drug use screening due Goal CMP. Due on due Goal HPV testing. Due on due Goal Generalized Anxi ety Disorder - 7 (SOL-7). Due on due Goal Obtain Height, Weight, and B OK. Due on due Goal Tobacco Use Screening. Due o n due Goal Tobacco Use Cess ation Counseling. Due on due Goal Vitamin B12. Due on due Goal Hepatitis C Screening due Goal HPV. Due on due Goal Depression screening. Due on due Goal Follow up Plan f or abnormal BMI (Less than 18.5, greater than 25). Due on due Goal HIV screen due Goal PAP. Due on due Goal CBC. Due on due Goal Drug Abuse Scree cayden Test (DAST-10). Due on due Goal TSH. Due on due Goal Lipid panel. Due on due Goal Pap/HPV testing. Due on due Goal Lifestyle education regardin g diet completed Goal Generalized Anxi ety Disorder - 7 (SOL-7). Due on due Goal TSH. Due on due Goal Obtain Height, Weight, and B OK. Due on due Goal Tobacco Use Cess ation Counseling. Due on due Goal Tobacco Use Screening. Due o n due Goal Diabetes screening. Due on N due Goal CBC. Due on due Goal Depression screening. Due on due Goal Influenza vaccine. Due on due Goal Follow up Plan f or abnormal BMI (Less than 18.5, greater than 25). Due on due Goal HPV testing. Due on due Goal Vitamin B12. Due on due Goal HPV. Due on due Goal Hepatitis C Screening due Goal PAP. Due on due Goal Vitamin D. Due on due Goal Lipid panel. Due on due Goal CMP. Due on due Goal HIV screen due Goal Unhealthy drug use screening due Goal Pap/HPV testing. Due on due Goal Drug Abuse Scree cayden Test (DAST-10). Due on due Goal Lifestyle education regardin g diet completed Goal Influenza vaccine. Due on due Goal Generalized Anxi ety Disorder - 7 (SOL-7). Due on due Goal HIV screen due Goal PAP. Due on due Goal Vitamin D. Due on due Goal CBC. Due on due Goal Unhealthy drug use screening due Goal Pap/HPV testing. Due on due Goal HPV testing. Due on due Goal HPV. Due on due Goal Obtain Height, Weight, and B OK. Due on due Goal Diabetes screening. Due on N due Goal Lipid panel. Due on due Goal Drug Abuse Scree cayden Test (DAST-10). Due on due Goal Tobacco Use Screening. Due o n due Goal Follow up Plan f or abnormal BMI (Less than 18.5, greater than 25). Due on due Goal Vitamin B12. Due on due Goal Hepatitis C Screening due Goal CMP. Due on due Goal TSH. Due on due Goal Depression screening. Due on due Referral Referred To: [facility] [address] [place], [phone] Ordered: Referrals: Pulmonology. [facility]. Location: [facility]. Evaluate and treat Appointment date/timeframe: 04/08/2025 ordered Referral Referred To: [facility] Ordered: Referrals: Dermatology. [facility]. Location: [place]. Evaluate and treat Appointment date/timeframe: 10/28/2024 ordered Referral Referred To: [facility] Ordered: Referrals: Cardiology. [facility]. Location: [place], [place]. Evaluate and treat Appointment date/timeframe: 10/01/2024 ordered Referral Ordered: ELECTROCARDIOGRAM, COMPLETE 12 Lead ordered Referral Referred To: [facility] Ordered: Referrals: Pain Management. [facility]. Evaluate and treat Appointment date/timeframe: 07/30/2024 ordered Referral Referred To: [facility] Ordered: Referrals: Gynecology. [facility]. Location: [facility], [place]. Evaluate and treat Appointment date/timeframe: 08/13/2024 ordered Referral Referred To: [facility] Ordered: Referrals: Neurosurgery. [facility]. Location: [place]. Evaluate and treat Appointment date/timeframe: 08/17/2024 ordered Referral Ordered: Referrals: Rheumatology. Consult Appointment date/timeframe: 08/11/2024 ordered Appointment Dawna Dainels - F/U On Labs BOOKED Appointment Dawna Daniels - Fasting Lab s BOOKED History Of Present Illness Encounter Date Complaint History Of Prese nt Illness er f/u Dawna is here to day for an ER f/u from Saturday. She went to the ER for treatment of her middle right digit, after cutting the tip off with a city planning aide.Today the tissue is granulated, red, and appears to be healing well without signs of infection. Wound was cleansed with saline, bacitracin applied, and new non-adherent dressing applied. I gave her a finger splint for added protection to tip of finger. She tolerated all very well.She is also here for fasting lab collection. follow up on labs Dawna is here today for f/u on recent labs:overall labs okvitamin b12, E okVitamin D slightly low 24.0- will start weekly supplement x 12 weekssunshine encouraged- 15 min daily- Dawna voiced understanding.ALT/AST slight elevationhx of cholysectomy 2016followed by GI at [facility]- plans to have scope in 1 one monthhx of fatty liver disease prior to gastric by-pass.Acne- on chin and neckshe is a peanut picker apply mupirocin bid and cleans face daily with otc acne cleanser.Recently dx w/ A1A phonotype MZ and gilbert syndromeLDL 74, trigs 77RTC 6 months fasting labs- sooner if needed fasting labs Dawna is here to day for fasting lab collection. Referrel Dawna is here to day for a referral to a lung specialist. GERARDO drake recommended that she see a predatory game hunter due to being at a higher risk for lung disease/cancer, related to her liver. After reviewing multiple records from multiple specialist and previous [place] records, I was able to find documentation on her using Brestri inhaler in Apr. As far as I can find, there is not history of asthma or COPD. She does report vaping TCH at night time, daily. She reports shortness of breath at times, possible contributor dx of SVT. She is not having any symptoms today. I am referring her to pulmonology for further evaluation to r/u lung disease. Owkxr-[id number]-eurkxkjnhd was found to be low at 87, Phenotype MZ through labs completed by GERARDO.Dawna is a newer patient that has recently established care here- from [place].Hx of Bipolar with hospitalization 05/04/24 for Suicidal ideation.She was homeless and living in a fpc with her 3 children.She currently sees [facility]-Yvrose Hess and is on Venlafaxine 37.5 mg daily.has been on pristiq, cymbalta in past, w/o help.I have sent her to Cardiology for Bradycardia, near syncope work-upShe had a complete w/o with CACT score of zeroholter monitor that showed SVT, no a-fib, and occasional PVCShe was placed on metolprolol, but did not tolerate well, currently taking 100 mg of diltiazem, which Cardiology noted improvement of symptoms.EJ fraction of 55She is followed by GI for her recent gastric-bypass sx 2 years ago, and hx of fatty liver.She weight over 245 lbs at the time, but is now 98lb. She lost weight quickly.She recently had a series of lab work w/ GI- finding Jlyzw-2-aedrtrbxpki was low at 87, phenotype MZ. negative for celiacIron deficient anemia- she is taking a vitamin w/ fe, Fe, and TIBC were within normal limits in October 2024Gi did RUQ US on 11/07/24 Impression: Unremarkable RUQ US status post cholecystectomy.No Guevara, mildly elevated ALT, AST, and alkaline phosphate 100 (normal) Bilirubin slight elevation, consistent with Gilbert syndrome.She is requesting zofran r/t after taking her medication for bipolar is nauseated and dry-heaving.She also has seen dermatology for psoriasis and is followed [facility].She is post menopausal from complete hysterectomyuses Estrogen transdermal patch.has reported flushing and brain fog improved since increased dose.She goes to pain management, where she gets Baclofen tid for her lower back pain. She declines having injections or lidocaine patches, as she has tried those in the past w/o success of pain relief.She has been diagnosed with Chronic pain syndrome. Elevated ALK phos/GERD Reports s he was referred to Gastro for work-up of liveralk phos 125 in [facility] negx of GI gastric by-passCraves sugar, milk, and meatself reports hx of fatty liver. States woke from sleep 2 nights ago with sharp burning chest pain.on Omepraozle 40 mg for the last few years via her previous GI doc in [place].Has appt to see GI at [facility] on November 08 or chest pains/palpitations followe d by Dr. Duy Lyons MD- [facility] cardiologyWearing Holter monitor for 14 days - on day 10, in place todayrecent CT angio Coronary artery- Total Ca+ score of zero- absence of coronary calcificationsno evidenece of significant flow-limiting atherosclerosisi of the coronary arteriescompleted 10/09/24F/u Card Oct 22 plaque psoriasis Dawna is here t sbarina for referral to Dermatology to potentially receive Humira injections for her plaque psoriasis. She has been taking it for about 1.5 years, but recently relocated to [place] from [place], and is in need of it. When she misses an injection states that she has a flare that covers her whole body. Today says has some spots on her sujit upper and lower extremities and on her back. States is only keeping lotion on her skin right now, dove lotion and soap. lightheadness States that she has had some lightheadedness and got dizzy 2 days ago and felt like she was going to pass out.She states she has been eating more.has cravings for milk and cheese.She keeps feeling like she is going to pass out, every day for the past week- has not gone to the ER nor has had appt here.I advised if she did pass out to go to the ER. She voiced understanding.Feels like her estrogen is low.States was on estrogen patch january of last year.weekly change- had a whole year of it prescribed.She did not go to her gynecology referral appt We will do labs today and I will refill her existing rx for 3 months, but would like er to f/u w/ rn integrated.Had a complete melt down yesterdaystates that she had a heart murmur as a child, but in her 20's went away, but had a heart monitor x 3 months and was cleared.Seen Cardiology 20 years ago in [place].1st had a scan and had a problem with her vallve, but after had a YASMANI and was reported as no problem.REcords not currently available. EKG in office today sinus mee hr 53, borderline EKGcardiology referral webex Patient and/or G naviian has verified being in the [facility] and has given verbal consent to be treated via telehealth/telephone wiebex consultation. Today's visit is being completed via; WebexPatient and/or Guardian provided full consent to use this technology. Patient and/or guardian was advised of the limitations of a video/phone visit via telehealthProvider completed this visit within his/her office. Patient's location during this visit- Patients workplace. Medication Follow up Dawna is he re today to follow up on medication and wants to talk about low estrogen.She did not keep her gynecology or neurology referral appointments. Hot Flashes Onset: 7 months ago. Additional information: [place] since last ovary was removed in January 2024. Follow up on Labs Dawna is a 39 yo female here today for f/u on recent labs.Alk Phos is slightly elevated at 125 - she states she has hx of this in the past. She was taking 10 tylenol a day for her general pain. Encouraged to only use tylenol if necessary and limit to packing instructions. Dawna is followed by Yvrose Burkett APRN for her depression/anxietyRheumatology referral made per pt's hx of psoriatic arthritis- goes next weekHowever, RH, ALEJANDRO, were negative, sed rate wnl Hx of gastric bypass- not taking any vitamins [id number] , folate 3.2- no anemias currentlyFe and TIBC okCurrently on Lamictal and cymbaltahx of fibromyalgiacomplains of all over body painfeels sick w/ increased dose of cymbalta- but Yvrose to manage New to establish Psoriatic, Psor iasis, and Rheumatology arthritisWhen she has breaks out it is full bodylast breakout was Sep 2022Was seen by dermatology and rhematology and requesting referral for continued care.[place] to rhematology.Requesting pain management for arithritis, bone spurs on sujit hips and pelvis.Sujit knees, and lower back pain.Hx of fibromyalgia.Pain is mostly in her lower back, but also in neck into her rt arm. Rt arm tingles, is heavy and throbs.Has seen multiple doctors in [place] for this.States when her back hurts, has pain in lower back, and into left leg that goes numb.States after gastric by pass has improved some, but happens a coulpe of times a week.She sees a dietition. She thinks her b12 is low.Does not take injectionsTakes pillshas lost over 100 lbsNeuro/Spine doctor for evaluation of surgery.She was told she needs a pain pump, but wants a 2nd opinion.wants a further evaluation of her degenerative disc problems and possible neurological/radiculopathy of her right arm.Has buldging disc in her neck.None of her records from [place] are available for review here at time of exam.Also needs referral to OBGYN for f//u post hysterectomy 2022- left ovary and uterusin January removed her rt ovary- r/t a small cyst, mood swings, hot flashes.Hx of fibromyalgiaHx of depression, anxiety, bipolar, and split personality disorder.Followed by Yvrose Singh APRN - [facility] vapes tch- declines to stop at this time.List of previous providers/surgeonsM[facility]. [facility] [phone]. Julio C MandujanoMichelle Olmstead [phone] [phone] [phone] [facility] [phone]. Rajesh Rodríguez, [facility] [phone] depression screening Depression screening completed on 07/14/2024. Patient scored a 14.-[facility] PRAPARE PRAPARE complete d on 07/14/2024.-[facility] Instructions Date Instruction Additional Infor mation Keep wound clean and dryUse splint for added protection against knocking or bumping woundTry to give wound some time to open air while at homeIf working or doing activities with your hands, then keep wound covered. Change dressing at least two times daily. Related to Encounter for change of nonsurgical wound dressing Discussed stress red uction techniques. Take medications as prescribed. Limit caffeine and nicotine. Try to follow a set sleep schedule. Get daily moderate exercise if able to tolerate. Related to Anxiety Giving encouragement to exercise Related to Body mass index [BMI] 20.0-20.9, adult Lifestyle education regarding di et Related to Body mass index [BMI] 20.0-20.9, adult Continue to keep [facility] [place] with Gastroenterology for further evaluation of liver and other GI disease/problems. Counseled patients on medications for reflux. Discussed lifestyle modifications including but not limited to elevating the head of the bed, limiting fatty, greasy, spicy food intake. Avoid heavy meals and caffeine intake within 2 hours of bedtime. If applicable, reduce/discontinue tobacco use and/or alcohol use, as both can make reflux symptoms worse. Related to Abnormal results of liver function studies Giving encouragement to exercise Related to Body mass index [BMI] 19.9 or less, adult Lifestyle education regarding di et Related to Body mass index [BMI] 19.9 or less, adult Patient instructed t o continue current medication regimen. Patient instructed to avoid tobacco smoke, vaping and other environmental smoke exposure. Patient instructed to limit exertional activity until symptoms are under better control. Discussed signs and symptoms of shortness of breath and if symptoms do not improve or are worse she can seek emergent treatment at the nearest emergency department. Otherwise, a referral has been made to Pulmonology for further evaluation. Related to Dyspnea, unspecified Giving encouragement to exercise Related to Body mass index [BMI] 19.9 or less, adult Lifestyle education regarding di et Related to Body mass index [BMI] 19.9 or less, adult Continue to wear Hol ter monitorContinue to f/u with Cardiology on the Related to Sinus bradycardia Counseled patients o n medications for reflux. Discussed lifestyle modifications including but not limited to elevating the head of the bed, limiting fatty, greasy, spicy food intake. Avoid heavy meals and caffeine intake within 2 hours of bedtime. If applicable, reduce/discontinue tobacco use and/or alcohol use, as both can make reflux symptoms worse. Related to GERD disease w/ esophagitis, w/o bleeding you may consider Andry ck cohosh 20-60 mg bid for mood swings, vaginitis, and hot flashes(Do not use if you have a history of breast cancer)Take Vitamin E daily to help with dry skin.I am sending an increased dose of you estradiol to 0.375 mg weeklyI would like for you to still f/u with OBGYN/ACID PATROLLER for further treatment. Related to Flushing associated w/ postprocedural menopause Giving encouragement to exercise Related to Body mass index [BMI] 19.9 or less, adult Lifestyle education regarding di et Related to Body mass index [BMI] 19.9 or less, adult Please make an appt with Dr. Baker- GynecologyMay continue to use estrogen patches- refills todayLabs collected today Related to Flushing associated w/ postprocedural menopause If you pass out or f eel you are going to pass out, go to the ER.Otherwise keep upcoming appt with Cardiology- referral Related to Syncope and collapse Patient instructed t hat any chest pain or discomfort lasting longer than 5 minutes warrants an urgent emergency room evaluation. Patient verbalized understanding. Related to Sinus bradycardia Giving encouragement to exercise Related to Body mass index [BMI] 19.9 or less, adult Lifestyle education regarding di et Related to Body mass index [BMI] 19.9 or less, adult Discussed common sig ns and symptoms of Fibromyalgia, including, but not limited to, fatigue, brain fog, joint pain, myalgias. Encouraged heart healthy diet with limited intake of pro-inflammatory foods (processed, greasy, junk). Make sure to get 30 minutes of moderate activity most days of the week. Follow a sleep schedule with goal of going to bed and getting up at the same time every day. Take medications as prescribed for symptom relief. Related to Fibromyalgia Patient instructed o n appropriate use of medications prescribed for neck pain. Discussed conservative measures such as heat, ice, gentle strength stretching, and core muscle strengthening. Avoid heavy lifting, pulling, or tugging. Contact the clinic if any worsening or new symptoms related to neck pain occur.Reschedule your referral appointment with Neurosurgery for evaluation. Related to Cervicalgia Discussed stress red uction techniques. Take medications as prescribed. Limit caffeine and nicotine. Try to follow a set sleep schedule. Get daily moderate exercise if able to tolerate. Related to Anxiety Giving encouragement to exercise Related to Body mass index [BMI] 19.9 or less, adult Lifestyle education regarding di et Related to Body mass index [BMI] 19.9 or less, adult Discussed stress red uction techniques. Take medications as prescribed. Limit caffeine and nicotine. Try to follow a set sleep schedule. Get daily moderate exercise if able to tolerate. Related to Anxiety Discussed common sig ns and symptoms of Fibromyalgia, including, but not limited to, fatigue, brain fog, joint pain, myalgias. Encouraged heart healthy diet with limited intake of pro-inflammatory foods (processed, greasy, junk). Make sure to get 30 minutes of moderate activity most days of the week. Follow a sleep schedule with goal of going to bed and getting up at the same time every day. Take medications as prescribed for symptom relief. Related to Fibromyalgia Patient instructed o n appropriate use of medications prescribed for back pain. Discussed conservative measures such as heat, ice, gentle strength stretching, and core muscle strengthening. Avoid heavy lifting, pulling, or tugging. Contact the clinic if any worsening or new symptoms related to back pain occur. Related to Dorsalgia Referral has been jv guzman to rhematology on your behalf for continued care of previous diagnosis of psoriatic arthritis, rhematoid arthritis. The clinic should call you within 2 weeks with your appointment date and time. 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
--- OUTSIDE RECORDS SUMMARY | 2025-04-24 07:45 | XMS_ITS | Clinical Summary ---
Author Organization [facility] Address [address], [address] [place] [address] Care Team Providers Care Enterprise Software Developer Name Role Phone Marisa Newberry APRN, CNP [...] complete this topic Insurance [employer] MEDICARE [facility] Care Teams Enterprise Software Developer Relationship Specialty Start Date End Date Marisa Newberry APRN - ENGINE HOUSE HELPER [address] [place] [id number] PCP - General 04/03/24
--- OUTSIDE RECORDS SUMMARY | 2025-04-24 07:45 | XMS_ITS | Patient Health Record ---
Author Organization [facility] MD S Address [address] [place], [place] [id number] Care Team Providers Care Color Expert Name Role Phone Shaun Recinos Unavailable Unavailable [...] Status W/U Status Risk Notes Problem Hypothyroidism (59981784) Hypothyroidism, unspecified (E03.9) Active confirmed Problem Major depression, single episode (99500962) Major depressive disorder, single episode, unspecified (F32.9) Active confirmed Problem Hyperprolactinemia (657209906) Hyperprolactinemia (E22.1) Active confirmed Plan Of Treatment Pending Test Test Name Order Date TSH+Free T4 06/03/2017 TSH+Free T4 03/04/2017 TSH+Free T4 09/03/2016 TSH+Free T4 03/30/2016 TSH+Free T4 05/03/2016 TSH+Free T4 12/03/2016 Comp. Metabolic Panel (14) 12/03/2016 Comp. Metabolic Panel (14) 03/30/2016 Comp. Metabolic Panel (14) 09/03/2016 Comp. Metabolic Panel (14) 03/04/2017 Basic Metabolic Panel (8) 02/03/2018 MRI : Brain with and without contrast Ultrasound : Thyroid Sonography B-Scan 0 05/03/2016 TSH+Free T4 01/06/2018 TSH+Free T4 02/03/2018 TSH+Free T4 05/05/2018 Basic Metabolic Panel (8) 06/03/2017 PROLACTIN 05/05/2018 BASIC METABOLIC PANEL 01/06/2018 BASIC METABOLIC PANEL 05/05/2018 MRI : Brain,Pituitary 03/30/2016 PROLACTIN 06/03/2017 PROLACTIN 03/30/2016 PROLACTIN 03/04/2017 PROLACTIN 09/03/2016 PROLACTIN 12/03/2016 PROLACTIN 05/03/2016 PROLACTIN 01/06/2018 PROLACTIN 02/03/2018 Insurance Providers Payer Name Payer Address Payer Phone Subscriber Number Group Number Insured Name Patient Relationship to Insured Coverage Start Date Coverage End Date [employer] [place] [employer] [address] [place] [address] [id number] Dawna Daniels Self - patient is the insured Medical (General) History Medical History History ICD Code Galactohea Depression Giddiness , Vertigo Surgical History Surgery Date(Month/Year) Eye muscles x2 Tonsils and Adenoids Tubal Ligation Nova Sure Procedure Bladder Sling Hospitalization History Reason Date(Month/Year) See surgical HX Childbirth 3 day stay- Liver/ gallbladder issues- [facility] 07/23/2016
--- OUTSIDE RECORDS SUMMARY | 2025-04-24 07:45 | XMS_ITS | Clinical Summary ---
Author Organization [facility] Address [address] [place] [address] Care Team Providers Care Sharepoint Net Developer Name Role Phone [place] Miriam Robe VILLANUEVA Primary Care Provider [phone] Social History Tobacco Use Types Packs/Day Years [...] 2010 [facility]-Cervical Cancer Screening 2013 [facility]-HPV/Cotest 2013 [id number] Vaccine (1 - 20 24-25 season) 2024 [...] complete this topic Insurance MEDICARE Care Teams Sharepoint Net Developer Relationship Specialty Start Date End Date Miriam Lazo APRN [address] [id number] [phone] PCP - General 07/20/24
[2025-04-24 07:50] VITALS: BP 124/87; PULSE 88; RESP 18; TEMP 37; O2SAT 98; BMI 20.5
[2025-04-24 07:55] LABS: Microscopic, Urine URINE MICROSCOPIC (MICROSCOPIC)
[2025-04-24 08:00] VITALS: BP 124/87; BP 132/88; PULSE 77; PULSE 88; RESP 18; TEMP 37; O2SAT 96; O2SAT 98
--- NOTE | 2025-04-24 08:02 | CT_ITS ---
PROCEDURE INFORMATION: Exam: CT Abdomen And Pelvis With Contrast Exam date and time: 04/24/2025 9:05 AM Age: 40 years old Clinical indication: Abdominal pain; Prior surgery; Surgery date: 6+ months; Surgery type: Hysterectomy & gastric bypass; Additional info: Rlq pain, vag bleed S/P hysterectomy, flank pain TECHNIQUE: Imaging protocol: Computed tomography of the abdomen and pelvis with contrast. Radiation optimization: All CT scans at this facility use at least one of these dose optimization techniques: automated exposure control; mA and/or kV adjustment per patient size (includes targeted exams where dose is matched to clinical indication); or iterative reconstruction. Contrast material: ISOVUE; Contrast volume: 75 ml; Contrast route: IV; COMPARISON: CT ABDOMEN PELVIS W CON 01/18/2025 12:03 PM FINDINGS: Liver: Normal. No mass. Gallbladder and biliary ducts: Surgical clips are noted in the gallbladder fossa compatible with a prior cholecystectomy. Pancreas: Normal. No ductal dilation. Spleen: Normal. No splenomegaly. Adrenal glands: Normal. No mass. Kidneys and ureters: The kidneys enhance symmetrically and there is no hydronephrosis. Stomach and bowel: The patient is post gastric bypass. There is no evidence for small bowel obstruction. Moderate stool and gas are noted in the colon. Appendix: The appendix is not identified no right lower quadrant. Intraperitoneal space: Unremarkable. No free air. No significant fluid collection. Vasculature: Unremarkable. No abdominal aortic aneurysm. Lymph nodes: Unremarkable. No enlarged lymph nodes. Urinary bladder: The urinary bladder is contracted but notably disproportionately thick-walled. Please correlate clinically regarding a cystitis. Reproductive: Uterus is surgically absent. Bones/joints: Unremarkable. No acute fracture. Soft tissues: Unremarkable. IMPRESSION: Postsurgical change as noted. Thick-walled urinary bladder. Please correlate clinically regarding cystitis. Constipation.
--- NOTE | 2025-04-24 08:24 | ED_ITS ---
Discharge Plan Disposition Patient Disposition: Home, Self-Care Condition: Good Prescriptions Prescriptions: New sulfamethoxazole-trimethoprim 800-160 mg tablet 1 tab PO Q12H 7 Days Qty: 14 0RF No Action PNV [id number] 30 mg iron-10 mg iron-1 mg capsule 1 cap PO DIRECTED vitamin E (dl, acetate) 45 mg (100 unit) capsule 45 mg PO DAILY hydrocortisone 2.5 % ointment 2.5 applic topical DIRECTED Patient Comments: APPLY OINTMENT EXTERNALLY TO AFFECTED AREA TWICE DAILY FOR 2 WEEKS AND THEN TAKE A 1 WEEK BREAK diltiazem HCl 120 mg capsule,extended release 24hr 120 mg PO DAILY Qty: 30 5RF lamotrigine 100 mg tablet 100 mg PO HS Patient Comments: TAKE 1 TABLET BY MOUTH ONCE DAILY AT NIGHT AT BEDTIME DIRECTED estradiol 0.01 % (0.1 mg/gram) cream See Rx Instructions .ROUTE .COMPLEX Qty: 43 4RF Dose Instruction: DISCARD APPLICATER AND APPLY BLUEBERRY SIZE AMOUNT OF CREAM TO THE OPENING OF THE VAGINA Rx Instructions: DISCARD APPLICATER AND APPLY BLUEBERRY SIZE AMOUNT OF CREAM TO THE OPENING OF THE VAGINA omeprazole magnesium 20 mg tablet,delayed release (DR/EC) 40 mg PO DAILY 90 Days Qty: 180 1RF estradiol 0.05 mg/24 hr patch weekly See Rx Instructions .ROUTE .COMPLEX Qty: 4 12RF Dose Instruction: APPLY 1 PATCH TOPICALLY ONCE A WEEK Rx Instructions: APPLY 1 PATCH TOPICALLY ONCE A WEEK venlafaxine 37.5 mg tablet 37.5 mg PO DAILY baclofen 5 mg tablet 5 mg PO TID Qty: 90 2RF bacitracin 500 unit/gram ointment 1 applic topical DAILY 7 Days Qty: 14 0RF Referrals Follow up/Referrals: Miriam Lazo APRN [Primary Care Provider, Medical] - See instructions Activity Restrictions/Add. Instructions Additional Instructions/Restrictions: Please start taking Bactrim tomorrow for Urinary Tract infection. If you have any new or worsening symptoms please return. Clinical Impressions Clinical Impression: UTI (urinary tract infection) Qualifiers: Urinary tract infection type: acute cystitis Hematuria presence: with hematuria Qualified Code(s): N30.01 - Acute cystitis with hematuria Print Language Print Language: Iranian Discharge ED Provider: Jemal Perez Adult [facility] General Chief complaint: Vaginal Bleeding Stated complaint: bleeding vaginally Time Seen by Provider: 04/24/25 07:40 Mode of Arrival: Wheelchair Source of Information: Patient Description of Symptoms (Recalled from ER Triage Doc. by RN): pt presents to the ED with vaginal bleeding. pt reports that she was up all night using the bathroom. pt states that around 1hr prior to coming to the ED she noticed she was bleeding bright red blood with clots. Urine was clear yesterday. pt reports she had a complete hysterectomy 2 years ago and LMP was September 2022. Lower back pian noted. Denies chest pain adn shortness of breath. pt states that she had sexual intercoarse yesterday morning. History of Present Illness HPI narrative: This is a 40-year-old female patient, with past medical history of alpha 1 antitrypsin deficiency, bipolar 1 disorder, HSV-2, history of hysterectomy with bilateral salpingo-oophorectomy with postmenopausal atrophic vaginitis, and recurrent urinary tract infections, who is presenting to the emergency department today for evaluation of urinary symptoms. Patient states that she has had urinary frequency and urgency with dysuria over the last couple of days. She states she woke up this morning and began experiencing bleeding but she is unsure as to whether this is urethral bleeding, vaginal bleeding, or rectal bleeding. She states that all that she knows is that she has blood on the toilet paper when she wipes. She tells me that she has had GI bleeding in the past from hemorrhoids and she is unsure if her bleeding is being caused by hemorrhoids. She has not noted much in the way of abdominal pain at rest, she denies fevers. She does report loose stools, she denies nausea and vomiting. No chest pain or shortness of breath Related Data Home Medications ?Medication ?Instructions ?Recorded ?Confirmed lamotrigine 100 mg tablet 100 mg PO HS 10/01/24 vitamins 30 30 mg iron-10 1 cap PO DIRECTE D 10/29/24 04/20/25 mg iron-folic acid 1 mg-om3 capsule vitamin E (dl, acetate) 45 mg (100 45 mg PO DAILY 02/1704/20/25 unit) capsule venlafaxine 37.5 mg tablet 37.5 mg PO DAILY 10/30/24 0 04/20/25 hydrocortisone 2.5 % topical 2.5 applic topical DIR ECTED 11/19/24 04/20/25 ointment Previous Rx's ?Medication ?Instructions ?Recorded diltiazem HCl 120 mg capsule,24 120 mg PO DAILY #30 ca ps 11/19/24 hr,extended release baclofen 5 mg tablet 5 mg PO TID #90 tabs 5 estradiol 0.01% (0.1 mg/gram) See Rx Instructions .Rou te 03/02/25 vaginal cream .COMPLEX #43 grams omeprazole magnesium 20 mg 40 mg (2 x 20 mg) PO DAILY 90 days 03/03/25 tablet,delayed release #180 tabs bacitracin 500 unit/gram topical 1 applic topical ADAL Y 7 days #14 04/10/25 ointment grams estradiol 0.05 mg/24 hr weekly See Rx Instructions .Ro otoe-[place] 04/21/25 transdermal patch .COMPLEX #4 patches sulfamethoxazole 800 1 tab PO Q12H 7 days #14 tab s 04/24/25 mg-trimethoprim 160 mg tablet Allergies Allergy/AdvReac Type Severity Reaction Status Date / Time aspirin Allergy Dizziness Verified 04/08/25 14:56 NSAIDS (Non-Steroidal AdvReac Other Verified 04/08/25 14:56 Anti-Inflamma PFSH PFSH Disclaimer: The information contained in this section may have been updated after the patient was seen, as this information can be updated by other users. Medical History (Updated 04/24/25 @ 10:26 by Jemal Perez DO) Asthma History of smoking for 6-10 years Dyspnea on exertion Cjdvw-9-inpowevpbwzklsus deficiency Hx of varicose veins of lower extremity Cholecystectomy planned Gvvgt-9-qzukobrugrm deficiency SVT (supraventricular tachycardia) Bipolar 1 disorder Surgical History History of carpal tunnel surgery Hx of cholecystectomy History of tonsillectomy and adenoidectomy History of hysterectomy Gastric bypass status for obesity Social History Smoking Status: Never smoker alcohol intake: never substance use type: marijuana current occupational status: other Travel in the last 8 weeks?: None Have you lived/traveled outside [place] in past 30 days?: No Contact w/someone who lives/traveled outside [place] past 30 days?: No Exposure to someone with infectious disease in past 14 days?: No Do you have a fever (greater than 100.4 F or 38 C)?: No Have you tested positive for COVID-19?: No Exposed to someone with COVID-19 in past 14 days?: No Do you have a sore throat?: No Do you have a cough?: No Do you have any weakness?: No Do you have any diarrhea?: No Are you experiencing any unusual bleeding?: No Do you have any muscle aches/pain?: No Do you have any abdominal pain?: No Are you experiencing loss of taste or smell?: No Other Medical History Have you received the Flu Vaccine for this season: No Have you received the Pneumonia Vaccine: No ROS Obtained: Yes Systems reviewed as appropriate & no additional complaints except as documented Physical Exam General General appearance: other (See MDM) Respiratory Respiratory exam: Present other (See MDM) Cardiovascular Cardiovascular exam: Present other (See MDM) Neurological Exam Neurological exam: Present other (See MDM) Medical Decision Making Medical Records Medical records reviewed: Yes I reviewed the patient's medical records. Screening: Per USPSTF and CDC recommendations, given the prevalence of disease in our region, it is our hospital?s policy to screen for HIV and viral Hepatitis for all patients aged 18 and over and those with ongoing risk factors. Dejon Inquiry Pt receiving controlled substance: No Dejon was queried for this patient: No Vital Signs: 04/24/25 07:50 04/24/25 08:00 04/24/25 08:00 Temperature 98.6 F 98.6 F Temperature Source Oral Oral Pulse Rate 88 77 Pulse Rate [Right] 88 Respiratory Rate 18 18 Blood Pressure 124/87 132/88 Blood Pressure [Right Arm] 124/87 Blood Pressure Mean [Right Arm] 99 Blood Pressure Source Automatic Cuff Blood Pressure Source [Right Arm] Automatic Cuff Blood Pressure Position Supine Blood Pressure Position [Right Arm] Supine 02 Sat by Pulse Oximetry 98 98 96 Oxygen Delivery Method Room Air Room Air 04/24/25 09:24 04/24/25 09:30 04/24/25 09:41 Temperature Temperature Source Pulse Rate 67 63 64 Pulse Rate [Right] Respiratory Rate 18 Blood Pressure 113/72 104/72 L 112/70 Blood Pressure [Right Arm] Blood Pressure Mean [Right Arm] Blood Pressure Source Automatic Cuff Blood Pressure Source [Right Arm] Blood Pressure Position Supine Blood Pressure Position [Right Arm] 02 Sat by Pulse Oximetry 97 100 99 Oxygen Delivery Method Room Air Lab Data Lab Results 04/24/25 07:45: Urine Color Red, Urine Appearance Cloudy, Urine pH 5.5, Ur Specific [place] 1.025, Urine Protein 3+ A, Urine Glucose (UA) Negative, Urine Ketones Trace, Urine Blood 3+ A, Urine Nitrate Positive A, Urine Bilirubin 1+ A, Urine Urobilinogen 2.0, Ur Leukocyte Esterase 1+ A, Urine RBC 10-20, Urine WBC 3-5, Ur Squamous Epith Cells 3-5, Urine Bacteria 1+ 04/24/25 08:12: WBC 10.7, RBC 4.40, Hgb 13.4, Hct 40.7, MCV 92.5, MCH 30.5, MCHC 32.9, RDW 12.4, Plt Count 240, MPV 9.2, Neut % (Auto) 64.8, Lymph % (Auto) 26.1, [place] % (Auto) 5.6, Eos % (Auto) 2.9, Baso % (Auto) 0.3, Neut # (Auto) 7.0, Lymph # (Auto) 2.8, [place] # (Auto) 0.6, Eos # (Auto) 0.3, Baso # (Auto) 0.0, Sodium 141, Potassium 4.3, Chloride 104, Carbon Dioxide 29, Anion Gap 12.3, BUN 13, Creatinine 0.80, Estimated Creat Clear 69, Estimated GFR 79, Est GFR ( Amer) 95, Glucose 76, Calcium 9.4, Total Bilirubin 1.1, AST 42 H, ALT 32, Alkaline Phosphatase 108, Total Protein 8.2, Albumin 4.8, Globulin 3.4 H, Albumin/Globulin Ratio 1.4, Lipase 54, Serum HCG, Qual Negative 04/24/25 08:35: Lactate 0.7 04/24/25 08:45: Blood Type O Positive, Antibody Screen Negative 04/24/25 08:12 04/24/25 08:12 Orders (Tests/Meds): ED MEDICATIONS Generic Name Dose Route Start Last Admin Trade Name Freq PRN Reason Stop Dose Admin Sodium Chloride 10 ml 04/24/25 09:04 04/24/25 09:05 Sodium Chloride 0.9% 10ml Syr (Rad Only) IV 05/24/25 09:03 10 ml NEEDED PRN Administration Maintain IV Site Discontinued Medications Generic Name Dose Route Start Last Admin Trade Name Eugenio PRN Reason Stop Dose Admin Ceftriaxone Sodium 2 gm/ 100 mls @ 200 mls/hr 04/24/25 09:10 04/24/25 10:10 Sodium Chloride IV 04/24/25 09:39 Infused ONCE ONE Infusion Iopamidol 75 ml 04/24/25 09:04 04/24/25 09:05 Iopamidol-370 (76%);100ml Bottle IV 04/24/25 09:05 75 ml ONCE ONE Administration ORDERS Category Date Time Status Type and Screen Stat BBK 04/24/25 08:[address] abdomen pelvis w con Stat Cat Scan 04/24/25 08:02 Completed CBC w/Auto Diff [Complete Blood Count Auto Diff] Stat Lab 04/24/25 08:12 Completed CMP [Comprehensive Metabolic Panel] Stat Lab 04/24/25 08:12 Completed HCG Qualitative, Serum Stat Lab 04/24/25 08:12 Completed Lactic Acid Stat Lab 04/24/25 08:35 Completed Lipase Stat Lab 04/24/25 08:12 Completed UA [Urinalysis and Microscopic] Stat Lab 04/24/25 07:45 Completed Urine Culture Stat Micro 04/24/25 07:45 Received Medical Decision Narrative: In summary, this is a 40-year-old female patient who is presented to the emergency department today for evaluation of dysuria and urinary frequency in the setting of bleeding which she is unable to characterize as urethral, vaginal, or anorectal. The patient does have a past medical history of hysterectomy with salpingo-oophorectomy, HSV-2 infection, major depressive disorder, and alpha-1 antitrypsin deficiency as well as bipolar disorder. On initial evaluation of the patient they were resting comfortably in no acute distress and nontoxic in appearance. They are hemodynamically stable, saturating well room air, and are neurologically intact. The on physical examination of the patient she is alert and oriented and appropriately interactive with a GCS of 15. Her heart and lungs are clear to auscultation bilaterally. She does have marked suprapubic and right lower quadrant abdominal pain. No tenderness in the upper quadrants. She also has bilateral CVA tenderness to percussion in which the right is worse than the left. Differential diagnosis includes vaginal tear, bleeding from atrophic vaginitis, anal fissure, anal hemorrhoid, lower GI bleeding, hematuria, ureterolithiasis, urinary tract infection, hemorrhagic cystitis, pancreatitis, intra-abdominal abscess, small bowel obstruction, internal hernia, among others. Workup was initiated with hematologic labs as well as a CT scan of the abdomen and pelvis. Labs personally interpreted by me demonstrate no leukocytosis and no actionable anemia. No electrolyte derangement or acute kidney injury. Urinalysis shows 3+ blood, nitrates, leukocyte esterase, and bacteria with 3-5 white blood cells. I have treated her with 2 g of Rocephin at this time with concern for urinary tract infection. CT scan of the abdomen and pelvis was personally interpreted by me. I do not see any evidence of hydronephrosis that would implicate a urinary stone. Official radiology read is in agreement and states that there is no acute abnormality. I have performed a vaginal speculum exam on the patient and there is a minimal amount of discharge within the vaginal vault and the prior hysterectomy site appears well-healed with no lacerations present within the vaginal vault. Additionally, there is no urethral tears noted on exam. There is also no engorged external hemorrhoids noted on exam either. My suspicion is that her bleeding is actually coming from her urinary tract. On final assessment of the patient she was feeling improved. We will treat her with a 7-day course of Bactrim which she can start taking tomorrow. At this time all questions have been answered and all parties are agreeable with the decision to discharge home Critical Care Critical Care Time Critical Care Time: No
[2025-04-24 08:26] LABS: Hematocrit 40.7 % (37.0-47.0); Hemoglobin 13.4 g/dL (12.2-16.2); Immature Granulocytes % 0.3 %; Mean Corpuscular HGB Conc 32.9 g/dL (31.8-35.4); Mean Corpuscular Hemoglobin 30.5 pg (27.0-31.2); Mean Corpuscular Volume 92.5 fl (81-99); Nucleated Red Blood Cells % 0 %; Platelet Count 240 K/mm3 (142-424); Red Blood Count 4.40 M/mm3 (4.20-5.40); Red Cell Distribution Width-SD 42.4 fL; White Blood Count 10.7 K/mm3 (4.8-10.8)
[2025-04-24 08:51] LABS: Alanine Aminotransferase 32 U/L (12-78); Albumin Level 4.8 g/dl (3.5-5.0); Albumin/Globulin Ratio 1.4 (1.1-1.8); Alkaline Phosphatase 108 U/L (38-126); Anion Gap 12.3 mEq/L (5-15); Aspartate Amino Transferase 42 U/L (14-36); Bilirubin,Total 1.1 mg/dl (0.2-1.3); Blood Urea Nitrogen 13 mg/dl (7-17); Calcium 9.4 mg/dl (8.4-10.2); Carbon Dioxide 29 mmol/L (22.0-30.0); Chloride 104 mmol/L (98-107); Creatinine Clearance Estimated 69 mL/min (50-200); Creatinine,Serum 0.80 mg/dl (0.52-1.04); Estimated Glomerular Filt Rate 79 ml/min (>60); GFR (African American) 95 ML/MIN (>60); Globulin 3.4 g/dL (1.3-3.2); Glucose 76 mg/dl (74-100); Lipase 54 U/L (23-300); Potassium 4.3 mmoL/L (3.5-5.1); Sodium 141 mmol/L (136-145); Total Protein,Serum 8.2 g/dl (6.3-8.2)
[2025-04-24 08:58] LABS: HCG Qualitative, Serum Negative (Negative)
[2025-04-24] MEDS: SODIUM CHLORIDE 0.9% 10ML SYR (RAD ONLY) 10 ML IV (09:05)
[2025-04-24] MEDS: IOPAMIDOL-370 (76%);100ML BOTTLE 75 ML IV (09:05)
[2025-04-24 09:06] LABS: Glucose,Urine (UA) Negative (Negative); Ketones,Urine TRACE (Negative); Leukocyte Esterase,Urine 1+ (Negative); PH,Urine 5.5 (5.0-8.5); Protein,Urine 3+ (Negative); Specific Gravity, Urine 1.025 (1.005-1.030); Urobilinogen,Urine 2.0 EU/dl (0.2)
[2025-04-24 09:07] LABS: Bilirubin,Urine 1+ (Negative); Color,Urine Red (Yellow)
--- NOTE | 2025-04-24 09:07 | PC.NURSE ---
I called and spoke with Marjorie in lab inquiring about the pts UA results. She states it is being released now.
[2025-04-24 09:14] LABS: Bacteria,Urine 1+ /lpf
[2025-04-24 09:24] VITALS: BP 113/72; PULSE 67; O2SAT 97
[2025-04-24 09:30] VITALS: BP 104/72; PULSE 63; O2SAT 100
--- NOTE | 2025-04-24 09:35 | PC.NURSE ---
Monica SOLANO inquired about blood cultures. is deferring them at this time.
[2025-04-24 09:41] VITALS: BP 112/70; PULSE 64; RESP 18; O2SAT 99
[2025-04-24 10:28] VITALS: BP 97/62; PULSE 70; RESP 16; TEMP 37; O2SAT 99
--- NOTE | 2025-04-24 11:12 | PC.NURSE ---
Swabbed was rejected by lab. Notified Dr. Perez and margarita without recollecting.
--- NOTE | 2025-04-25 09:13 | PC.NURSE ---
I spoke with about the pts prelim urine culture results. No changed needed to treatment.
== END 2025-04-24 10:29 | disposition home or self-care (01) ==
PROVIDERS: Emergency Provider Student in an Organized Health Care Education/Training Program; PCP Nurse Practitioner Family
DX: N30.01 Acute cystitis with hematuria (principal); E88.01 Alpha-1-antitrypsin deficiency; F31.9 Bipolar disorder, unspecified
CPT/HCPCS: 74177; 80053; 81001; 83605; 83690; 84703; 85025; 86850; 87086; 87088; 87186; 96365; 99284; J0696; Q9967

== ENCOUNTER 2025-05-11 13:31 | Outpatient (CLI) | payer MEDICARE, MEDICAID, SELFPAY ==
--- OUTSIDE RECORDS SUMMARY | 2025-05-11 13:33 | XMS_ITS | Clinical Summary ---
Author Organization [facility] Address [address], [address] [place] [address] Care Team Providers Care Fire Protection Engineering Technician Name Role Phone Marisa Newberry APRN, [...] (without or with Pap) 2013 Lipids 2023 DTaP/Tdap/Td vaccine (2 - Td or Tdap) 05/05/2024 05/05/2014 Annual Wellness Visit (Medicare Advantage) 08/26/2024 Flu vaccine (#1) 03/26/2025 05/20/2023, , 05/09/2020, Additional history exists COVID-19 Vaccine ( - season) 2025 Breast cancer screen 05/31/2025 05/31/2023, 09/30/19 16 [...] complete this topic Insurance HU[employer]NA MEDICARE [facility] Care Teams Fire Protection Engineering Technician Relationship Specialty Start Date End Date Marisa Newberry APRN - QUALITY INTERN [address] [place] [phone] PCP - General 04/03/24
--- OUTSIDE RECORDS SUMMARY | 2025-05-11 13:33 | XMS_ITS | Clinical Summary ---
Author Organization [facility] Address [address] [place] [address] Care Team Providers Care Food Product Inspector Name Role Phone Clifton Miriam Robe VILLANUEVA Primary Care Provider [phone] Social History Tobacco Use Types Packs/Day Years [...] 2010 [facility]-Cervical Cancer Screening 2013 [facility]-HPV/Cotest 2013 [id number]-[id number]-14 Vaccine (1 - 20 24-25 season) 2025 [facility]-Influenza Vaccine (#1) 2025 06/25/2024 [facility]-Zoster Vaccines [...] complete this topic Insurance MEDICARE Care Teams Food Product Inspector Relationship Specialty Start Date End Date Miriam Lazo APRN [address] [phone] PCP - General 07/20/24
--- OUTSIDE RECORDS SUMMARY | 2025-05-11 13:33 | XMS_ITS | Patient Health Record ---
Author Organization [facility] Address [address] [place], [place] [id number] Care Team Providers Care Textile Finisher Name Role Phone Shaun Recinos Unavailable Unavailable [...] Status W/U Status Risk Notes Problem Hypothyroidism (80629709) Hypothyroidism, unspecified (E03.9) Active confirmed Problem Major depression, single episode (69022366) Major depressive disorder, single episode, unspecified (F32.9) Active confirmed Problem Hyperprolactinemia (091548747) Hyperprolactinemia (E22.1) Active confirmed Plan Of Treatment [...] [employer] [place] Medicaid [address] [place] [address] [id number] Dawna Daniels Self - patient is the insured Medical (General) History Medical History History ICD Code Galactohea Depression Giddiness , Vertigo Surgical History Surgery Date(Month/Year) Eye muscles x2 Tonsils and Adenoids Tubal Ligation Nova Sure Procedure Bladder Sling Hospitalization History Reason Date(Month/Year) See surgical HX Childbirth 3 day stay- Liver/ gallbladder issues- L [facility] 07/23/2016
--- NOTE | 2025-05-11 14:15 | CT_ITS ---
FINAL REPORT TECHNIQUE: Axial CT without IV contrast administration. High-resolution study was performed including high-resolution imaging in supine position. This study was performed with techniques to keep radiation doses as low as reasonably achievable, (ALARA). Individualized dose reduction techniques using automated exposure control or adjustment of mA and/or kV according to the patient''s size were employed. CLINICAL HISTORY: emphysema COMPARISON: none FINDINGS: No acute lung disease is present. No evidence of diffuse interstitial lung disease. No bronchiectasis. No imaging findings of emphysema. No pleural or pericardial effusion is seen. No adenopathy or mass lesion is present. IMPRESSION: Unremarkable exam. Reviewed, Interpreted and Dictated by Subha Malik MD Transcribed by Neeta Khan Authenticated and [facility]
== END 2025-05-11 23:59 | disposition home or self-care (01) ==
LOC: RAD 13:32
PROVIDERS: PCP Nurse Practitioner Family; Visit Provider Internal Medicine Pulmonary Disease
DX: J45.909 Unspecified asthma, uncomplicated (principal); E88.09 Other disorders of plasma-protein metabolism, not elsewhere classified
CPT/HCPCS: 71250

== ENCOUNTER 2025-05-13 09:34 | Outpatient (CLI) | payer MEDICARE, MEDICAID, SELFPAY ==
--- OUTSIDE RECORDS SUMMARY | 2009-09-28 20:00 | XMS_ITS | Continuity of Care Document ---
[facility] Address [address] [place] [address] Phone Care Team Providers Care Coremaker Pipe Name Role Phone Kelli Leahy MD Unavailable Unavailable Procedures Procedure Date Tdap Boostrix 10-18 [facility] Tdap Boostrix 10-18 [facility] Tdap Boostrix 10-18 [facility] Tdap Boostrix 10-18 [facility] Tdap Boostrix 10-18 [facility] Tdap Boostrix 10[facility]18 [facility] MMR [facility] MMR [facility] MMR [facility] Flu TIV Coalition MMR Private [...] Copied on Encounter OFFICE/OUTPAT IENT VISIT, EST [facility] Department , [address], [place], [place], [id number], tel:[phone] [facility] Dept Immunization No Information 0 Armond Pereira. [address], [place], [place], [id number] , . 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 YOANDY LOPEZ RN ; Source: New Immunization Record Tdap administered Source: New Imm unization Record MMR administered Source: New Imm unization Record flu (split) preservative nicho e, 3 yrs or older cancelled Source: New Immuniza tion Record Flu (split) (3 yrs or older) cancelled Source: New Immunization Record Payers Payer name Insurance type Covered constitution party ID Authoriza tion(s) [facility] [id number] Social History Type Description Quantity Date Captured [...]
--- OUTSIDE RECORDS SUMMARY | 2025-05-11 07:00 | XMS_ITS | Continuity of Care Document ---
Author Organization [facility] Address [address] [place] [address] Phone Care Team Providers Care Clock Maker Name Role Phone Clifton MSN, LODE MINER, Miriam Unavailable Unavai lable Allergies, Adverse Reactions, Alerts Substance Reaction Status Criticality aspirin Active No Information Medications Medication Instructions Dosage Effective Dates (start - stop) Status Comments penicillin V potassium 500 mg tablet take 1 tablet by oral route every 12 hours 500 MG - Active Peridex 0.12 % mouthwash place 15 milliliter by mucous membrane route 2 times every day in the mouth (after meals), swish in mouth for 30 seconds then spit out 15.00 milliliter - Active ondansetron [address] 1 tablet by translingual route every 8 hours on top of the tongue where they will dissolve, then swallow 4 MG - Active omeprazole 40 mg capsule,delayed release take 1 capsule by oral route every day before a meal 40 MG - Active estradiol 0.1 mg/24 hr weekly transdermal patch apply 1 patch by transdermal route every week cyclically, 3 weeks on and 1 week off 1.00 patch - Active diltiazem ER (XR/XT) 120 mg capsule,extended release 24 hr, controlled take 1 capsule by oral route every day 120 MG - Active estradiol 0.01% (0.1 mg/gram) vaginal cream insert (1G) by vaginal route every week 1 G - Active Vitafol Gummies 3.33 mg iron-0.33 mg chewable tablet chew 3 tablet by oral route every day 3.00 tablet - Active Pristiq 100 mg tablet,extended release take 1 tablet by oral route every day 100 MG - Active vitamin E 268 mg (400 unit) capsule Take 2 capsules daily via oral route. - Active Symbicort 160 mcg-4.5 mcg/actuation HFA aerosol inhaler inhale 2 puff by inhalation route 2 times every day in the morning and evening 2.00 puff - Active albuterol sulfate HFA 90 mcg/actuation aerosol inhaler inhale 2 puff by inhalation route every 4 - 6 hours as needed 180 MCG - Active Lamictal 100 mg tablet take 1 tablet by oral route every day 100 MG - Active Procedures Procedure Date SCREEN DEPRESSION PERFORMED OFFICE/OUTPATIENT VISIT, [facility] Advance Directives Directive Yes / No Effective Date File Name No Information Encounters Encounter Description Practice Location Reason(s) For Visit Diagnoses Date Provider OFFICE/OUTPA TIENT VISIT, [facility], [address] [place] [address], [facility], tel:[phone] [facility] [place] jaw pain (chief complaint)P rapare (chief complaint)D epression screening (chief complaint) Extreme povertyOther specified lack of adequate foodEncounter for screening for depressionJaw painDental abscess w/o sinus Sep- 5 Lazo Miriam. [address], [place], [id number] , [place]. tel:[phone], [facility], tel:[phone] [facility] [place] er f/u (chief complaint) Body mass index [BMI] 20.0-20.9, adultDeficiency of vitamin ZQmajpmhrbjdTaqdv-9-llzh trypsin deficiencyAbnormal results of liver function studiesDepression Sep- 5 Lazo Miriam. [address], [place], [id number] , [place]. tel:[phone], [facility], [place] tel:[phone] [facility] [place] er f/u (chief complaint) Encounter for change of nonsurgical wound dressingAnxietyBody mass index [BMI] 20.0-20.9, adultAbnormal results of liver function studies 5 Lazo Miriam. [address], [place], [id number] , [place]. tel:[phone] [facility], [address] [place] [address], [address], [place] tel:[phone] [facility] [place] follow up on labs (chief complaint) Body mass index [BMI] 19.9 or less, adultAbnormal results of liver function studiesPostmenopausal status 5 Lazo Miriam. [address], [place], [id number] , [place]. tel:[phone], [facility], [place] tel:[phone] [facility] [place] fasting labs (chief complaint) Gastric bypass status for obesity Lazo Miriam. [address], [place], [id number] , [place]. tel:[phone], [facility], [place] tel:[phone] [facility] [place] No Information 5 Ant Rodas. [address] [place] [address], [id number] , [place]. tel:[phone], [facility], [place] tel:[phone] [facility] [place] Referrel (chief complaint) Body mass index [BMI] 19.9 or less, kuhilGaiof-9-jgvydozwpvm deficiencyDyspnea, unspecified Lazo Miriam. [address] [place] [address], [id number] , [place]. tel:[phone] [place], [facility], tel:[phone] [facility] [place] plaque psoriasis (chief complaint)c hest pains/palpi tations (chief complaint)E levated ALK phos/GERD (chief complaint) Plaque psoriasisFlushing associated w/ postprocedural menopauseGERD disease w/ esophagitis, w/o bleedingSinus bradycardiaBody mass index [BMI] 19.9 or less, adult 5 Lazo Miriam. [address], [place], [id number] , . tel: [phone] [facility], [address] [place] [address], [facility], tel:[phone] [facility] [place] Medication Follow up (chief complaint)H ot Flashes (chief complaint)l ightheadnes s (chief complaint)w ebex (chief complaint) Body mass index [BMI] 19.9 or less, adultFlushing associated w/ postprocedural menopauseSyncope and collapseSinus bradycardia 5 Lazo Miriam. [address], [place], [id number] , . tel: [phone] [facility], [address] [place] [address], [facility], tel:[phone] [facility] [place] Follow up on Labs (chief complaint) Body mass index [BMI] 19.9 or less, adultAnxietyCervicalgiaD epressionFibromyalgia 4 Lazo Miriam. [address], [place], [id number] , [place]. tel: [phone] [facility], [address] [place] [address], [facility], tel:[phone] [facility] [place] depression screening (chief complaint)P RAPARE (chief complaint)N ew to establish (chief complaint) Encounter for screening for depressionExtreme povertyUnavailability and inaccessibility of other helping agenciesUnavailability and inaccessibility of health-care facilitiesProblem related to primary support group, unspecifiedCervicalgiaDo rsalgiaPsoriatic arthritis mutilansPostmenopausal statusFibromyalgiaAnxiet yDepressionGastric bypass status for obesityEncounter for screening for diabetes mellitus Clifton Pineda. [address], [place], [id number] , . tel: [phone] Family History Family Member Type Diagnosis Age [...] Registry Payers Payer name Insurance type Covered libertarian ID Authoriza tion(s) [facility] Adv [employer] CI [id number] [facility] Adv [employer] CI [id number] Social History Type Description Quantity Date Captured Comments Alcohol Use Details wine 1 drink rarely Caffeine Use Details No Tobacco Use Status Current non-smoker Smoking Status Never smoker Non-Smoking Tobacco Use Details : No Details Available : No Details Available Sex Female Sexual Orientation Bisexual Gender Identity Female Vital Signs Date / Time: Height Weight BMI Pulse Rate Blood Pressure Temperature Respiratory Rate Body Surface Area Head Circumference Head Circ. Percentile Wt./Óscar. Percentile BMI percentile Pulse Ox Inhaled Ox 11:28 AM 60.00 in 47.355 kg (104.40 lbs) 20.3 9 kg/m eter (2) 62 /min 121/69 mm[Hg] 98.00 F 18 /min 99 % Chief Complaint And Reason For Visit From encounter dated '05/11/2025 11:00'. jaw pain (chief complaint). Description: Dawna is here today for swelling in her jaw on the right lower side x yesterday. She took 2 benadryl and Tylenol and went to bed. Swelling was slightly betterthis morning, however as the day progressed it is worse. She is able to swallow and control secretions and is in no respiratory distress. She has an abscess tooth on the right lower jaw. Pen VK sent to pharmacy, peridex solution and recommended dental care. Andrea (chief complaint). Description: Andrea completed 05/11/25. -AW,CM Depression screening (chief complaint). Description: Depression screening completed 05/11/25. Pt scored 2, provider aware. -AW,CM Plan Of Treatment Date Type Action Status Goal Lipid panel. Due on 026 due Goal Tobacco Use Cess ation Counseling. Due on due Goal Depression screening. Due on due Goal CMP. Due on due Goal Generalized Anxi ety Disorder - 7 (SOL-7). Due on due Goal CBC. Due on due Goal PAP. Due on due Goal Obtain Height, Weight, and B W[place]. Due on due Goal TSH. Due on due Goal Follow up Plan f or abnormal BMI (Less than 18.5, greater than 25). Due on due Goal Tobacco screening. Due on due Goal Drug Abuse Scree cayden Test (DAST-10). Due on due Goal HPV testing. Due on due Goal Vitamin B12. Due on due Goal Pap/HPV testing. Due on due Goal Unhealthy drug use screening due Goal Diabetes screening. Due on N due Goal Influenza vaccine. Due on Se due Goal Tobacco Use Screening. Due o n due Goal HPV. Due on due Goal HIV screen due Goal Vitamin D. Due on due Goal Hepatitis C Screening due Goal Hematocrit/Hemoglobin. Due o n due Goal Hemoglobin (Pree edgardo/HR 9 months). Due on due Goal Lipid panel. Due on due Goal CBC. Due on due Goal HPV testing. Due on due Goal Depression screening. Due on due Goal Follow up Plan f or abnormal BMI (Less than 18.5, greater than 25). Due on due Goal TSH. Due on due Goal Unhealthy drug use screening due Goal Obtain Height, Weight, and B W[place]. Due on due Goal Tobacco Use Screening. Due o n due Goal Vitamin D. Due on due Goal HIV screen due Goal CMP. Due on due Goal PAP. Due on due Goal Influenza vaccine. Due on due Goal Generalized Anxi ety Disorder - 7 (SOL-7). Due on due Goal Pap/HPV testing. Due on due Goal Diabetes screening. Due on N due Goal Tobacco Use Cess ation Counseling. Due on due Goal Vitamin B12. Due on due Goal Tobacco screening. Due on due Goal Hepatitis C Screening due Goal Drug Abuse Scree cayden Test (DAST-10). Due on due Goal HPV. Due on due Goal Hemoglobin (Pree edgardo/HR [...] Goal Vitamin B12. Due on due Goal Follow up Plan f or abnormal BMI (Less than 18.5, greater than 25). Due on due Goal TSH. Due on due Goal Obtain Height, Weight, and B W[place]. Due on due Goal Generalized Anxi ety Disorder - 7 (OSL-7). Due on due Goal Diabetes screening. Due on N due Goal HIV screen due Goal PAP. Due on due Goal Unhealthy drug use screening due Goal Tobacco Use Cess ation Counseling. Due on due Goal Hematocrit/Hemoglobin. Due o n due Goal Hemoglobin (Pree edgardo/HR 9 months). Due on due Goal Lifestyle education regardin [...] due Goal Obtain Height, Weight, and B WY. Due on due Goal Drug Abuse Scree [...] due Goal Obtain Height, Weight, and B W[place]. Due on due Goal Pap/HPV testing. Due on due Goal Tobacco Use Cess ation Counseling. Due on due Goal Hepatitis C Screening due Goal Unhealthy drug use screening due Goal Diabetes screening. Due on due Goal Vitamin B12. Due on due Goal Depression screening. Due on due Goal CMP. Due [...] due Goal Obtain Height, Weight, and B WY. Due on due Goal Tobacco screening. Due on due Goal Tobacco Use Screening. Due o n due Goal HIV screen due Goal Diabetes screening. Due on N due Goal Unhealthy drug use screening due Goal Lipid panel. Due on due Goal Lipid panel. Due [...] due Goal Obtain Height, Weight, and B WY. Due on due Goal Drug Abuse Scree cayden Test (DAST-10). Due on due Goal Vitamin D. Due on due Goal Tobacco screening. Due on due Goal PAP. Due on due Goal Hepatitis C Screening due Goal HIV screen due Goal CBC. Due on due Goal CMP. Due on due Goal Lifestyle education regardin g diet completed Goal Tobacco screening. Due on due Goal Follow up Plan f or abnormal BMI (Less than 18.5, greater than 25). Due on due Goal HPV testing. Due on due Goal Generalized Anxi ety Disorder - 7 (SOL-7). Due on due Goal Depression screening. Due on due Goal PAP. Due on due Goal Unhealthy drug use screening due Goal CBC. Due on due Goal Pap/HPV testing. Due on due Goal Lipid panel. Due on due Goal Hepatitis C Screening due Goal Drug Abuse Scree cayden Test (DAST-10). Due on due Goal Diabetes screening. Due on due Goal Vitamin D. Due on due Goal Tobacco Use Screening. Due o n due Goal Obtain Height, Weight, and B WY. Due on due Goal HPV. Due on due Goal HIV screen due Goal Tobacco Use Cess ation Counseling. Due on due Goal TSH. Due on due Goal Vitamin B12. Due on due Goal CMP. Due on due Goal Lifestyle education regardin g diet completed Goal Vitamin D. Due on due Goal Diabetes screening. Due on N due Goal Unhealthy drug use screening due Goal Hepatitis C Screening due Goal HIV screen due Goal Generalized Anxi ety Disorder - 7 (SOL-7). Due on due Goal CMP. Due on due Goal Obtain Height, Weight, and B WY. Due on due Goal Lipid panel. Due on due Goal Vitamin B12. Due on due Goal HPV testing. Due on due Goal Drug Abuse Scree cayden Test (DAST-10). Due on due Goal HPV. Due on due Goal TSH. Due on due Goal CBC. Due on due Goal Follow up Plan f or abnormal BMI (Less than 18.5, greater than 25). Due on due Goal Tobacco Use Cess ation Counseling. Due on due Goal Tobacco Use Screening. Due o n due Goal PAP. Due on due Goal Depression screening. Due on due Goal Pap/HPV testing. Due on due Goal Lifestyle education regardin g diet completed Goal HPV. Due on due Goal Vitamin B12. Due on due Goal Depression screening. Due on due Goal Tobacco Use Cess ation Counseling. Due on due Goal TSH. Due on due Goal CBC. Due on due Goal Hepatitis C Screening due Goal HPV testing. Due on due Goal Follow up Plan f or abnormal BMI (Less than 18.5, greater than 25). Due on due Goal Diabetes screening. Due on N due Goal Tobacco Use Screening. Due o n due Goal Obtain Height, Weight, and B WY. Due on due Goal Influenza vaccine. Due on due Goal PAP. Due on due Goal Generalized Anxi ety Disorder - 7 (SOL-7). Due on due Goal Unhealthy drug use screening due Goal CMP. Due on due Goal Pap/HPV testing. Due on due Goal Lipid panel. Due on due Goal Vitamin D. Due on due Goal HIV screen due Goal Drug Abuse Scree cayden Test (DAST-10). Due on due Goal Lifestyle education regardin g diet completed Goal Influenza vaccine. Due on No due Goal Generalized Anxi ety Disorder - 7 (SOL-7). Due on due Goal HIV screen due Goal PAP. Due on due Goal Vitamin D. Due on due Goal CBC. Due on due Goal Unhealthy drug use screening due Goal Pap/HPV testing. Due on due Goal HPV testing. Due on due Goal HPV. Due on due Goal Obtain Height, Weight, and B WY. Due on due Goal Diabetes screening. Due on N due Goal Lipid panel. Due on due Goal Drug Abuse Scree cayden Test (DAST-10). Due on due Goal Tobacco Use Screening. Due o n due Goal Follow up Plan f or abnormal BMI (Less than 18.5, greater than 25). Due on due Goal Vitamin B12. Due on 025 due Goal Hepatitis C Screening due Goal CMP. Due on due Goal TSH. Due on due Goal Depression screening. Due on due Referral Referred To: [facility] [address] [place], [id number] [phone] Ordered: Referrals: Pulmonology. [facility]. Location: [facility]. Evaluate and treat Appointment date/timeframe: 04/08/2025 ordered Referral Referred To: [facility] Ordered: Referrals: Dermatology. [facility]. Location: [place]. Evaluate and treat Appointment date/timeframe: 10/28/2024 ordered Referral Referred To: [facility] Ordered: Referrals: Cardiology. [facility]. Location: [place], [place]. Evaluate and treat Appointment date/timeframe: 10/01/2024 ordered Referral Ordered: ELECTROCARDIOGRAM, COMPLETE 12 Lead ordered Referral Referred To: [facility] Ordered: Referrals: Pain Management. [facility]. Evaluate and treat Appointment date/timeframe: 07/30/2024 ordered Referral Referred To: [facility] Ordered: Referrals: Gynecology. [facility]. Location: [facility]. Evaluate and treat Appointment date/timeframe: 08/13/2024 ordered Referral Referred To: [facility] Ordered: Referrals: Neurosurgery. [facility]. Location: [place]. Evaluate and treat Appointment date/timeframe: 08/17/2024 ordered Referral Ordered: Referrals: Rheumatology. Consult Appointment date/timeframe: 08/11/2024 ordered Appointment Dawna Daniels - Fasting Lab s BOOKED Appointment Frances Dawna - F/U Lab Res ults BOOKED History Of Present Illness Encounter Date Complaint History Of Prese nt Illness jaw pain Dawna is here to day for swelling in her jaw on the right lower side x yesterday. She took 2 benadryl and Tylenol and went to bed. Swelling was slightly better this morning, however as the day progressed it is worse. She is able to swallow and control secretions and is in no respiratory distress. She has an abscess tooth on the right lower jaw. Pen VK sent to pharmacy, peridex solution and recommended dental care. Prapare Prapare complete d 05/11/25. -AW,CM Depression screening Depression screening completed 05/11/25. Pt scored 2, provider aware. -AW,CM er f/u Dawna is here to day for ER f/u. She was in the ER on 04/24 for uti . ER notes stated cystitis and constipation. She is doing better today and has no Urinary complaints. She is also here for f/u on most recent labs.She is in office today with a Monster drink in hand. Explained that these types of drinks my be contributing to her cystitis and are not good for her. She voiced understanding.CARDS:She recently went to Cardiology 03/22/25.She is to f/u in 3 monthscurrently taking diltiazem Hcl ER 120 mg dailyThere is possibility to stop medication at next visit, but currently is continued.She denies cp or soa today in office.She does report she is vaping occasionally THC. Cessation encouraged. LUNGS:She also recently saw Dr. Stokes - [facility] is considering infusions" for her lungs to make them stronger.She has orisd-3-gviyweewoon phenotype.She carries a diagnosis of Asthma as reports taking Symbicort 160 mg bid on an as need basis. Today Dawna states that she was instructed to stop this inhaler by Dr. Stokes. He has ordered a 6 min O2 walking test, full PFT, and CT of the lungs. She has previous hx of smoking and wishes to r/o COPD. Per his note- he did continue the Symbicort, contrary to what Dawna reported today. Currently she is not using the Symbicort. I told her that she needs to call and schedule the testing, then f/u with Divya to determine further need of medication/plan. She voiced understanding. Barrel Painter Exam/Pap, and Mammo completed 02/14/25Estradiol 0.01% gram vaginal cream and 1 mg patch weekly- written by GYNMedication list updated in our chart hereDepression/Anxiety- on Lamotrigine 100 mg po HS, Pristiq- followed by Yvrose Hess APRN- NGHIAPBack and neck pain- followed by pain management, currently getting epidural injections- not helping.Also followed by GI- Gilbert Syndrome, non-alcoholic fatty liver disease.Labs over all ok- low component of Vit E. Currently taking a supplement as well as PNV+iron er f/u Dawna is here to day for an ER f/u from Saturday. She went to the ER for treatment of her middle right digit, after cutting the tip off with a boot repairer.Today the tissue is granulated, red, and appears [...] elevationhx of cholysectomy 2016followed by GI at [facility]- plans to have scope in 1 one monthhx of fatty liver disease prior to gastric by-pass.Acne- on chin and neckshe is a crab picker apply mupirocin bid and cleans face daily with otc acne cleanser.Recently dx w/ A1A phonotype MZ and gilbert syndromeLDL 74, trigs 77RTC 6 months fasting labs- sooner if needed fasting labs Dawna is here to day for fasting lab collection. Referrel Dawna is here to day for a referral to a lung specialist. GERARDO drake recommended that she see a boxing trainer due to being at a higher risk for lung disease/cancer, related to her liver. After reviewing multiple records from multiple specialist and previous [place] records, I was able to find documentation [...] for further evaluation to r/u lung disease. Jkzzi-7-bquwqtpmgx was found to be low at 87, Phenotype MZ through labs completed by GERARDO.Dawna is a newer patient that has recently established care here- from [place].Hx of Bipolar with hospitalization 05/04/24 for Suicidal ideation.She was homeless and living in a prison with her 3 children.She currently sees [facility]-Yvrose Hess and is on Venlafaxine 37.5 mg [...] series of lab work w/ GI- finding Dleql-3-onyqodwxaiu was low at 87, phenotype MZ. negative [...] for work-up of liveralk phos 125 in [facility] negx of GI gastric by-passCraves sugar, milk, and meatself reports hx of fatty liver. States woke from sleep 2 nights ago with sharp burning chest pain.on Omepraozle 40 mg for the last few years via her previous GI doc in [place].Has appt to see GI at [facility] on November 08 or chest pains/palpitations followe d by Dr. Duy Lyons MD- [facility] cardiologyWearing Holter monitor for 14 days - on day 10, in place todayrecent CT angio Coronary artery- Total Ca+ score of zero- absence of coronary calcificationsno evidenece of significant flow-limiting atherosclerosisi of the coronary arteriescompleted 10/09/24F/u Card Oct 22 plaque psoriasis Dawna is here t sabrina for referral to Dermatology to potentially receive Humira injections for her plaque psoriasis. She has been taking it for about 1.5 years, but recently relocated to [place] from [place], and is in need of it. When she misses an injection states that she has a flare that covers her whole body. Today says has some spots on her sujit upper and lower extremities and on her back. is only keeping lotion on her skin [...] She voiced understanding.Feels like her estrogen is low. was on estrogen patch january of last year.weekly change- had a whole year of it prescribed.She did not go to her gynecology referral appt We will do labs today and I will refill her existing rx for 3 months, but would like er to f/u w/ manager gyn.Had a complete melt down yesterdaystates that she had a heart murmur as a child, but in her 20's went away, but had a heart monitor x 3 months and was cleared.Seen Cardiology 20 years ago in [place].1st had a scan and had a problem with her vallve, but after had a YASMANI and was reported as no problem.REcords not currently available. EKG in office today sinus mee hr 53, borderline EKGcardiology referral webex Patient and/or G uardian has verified being in the [facility] and has given verbal consent to [...] of gastric bypass- not taking any vitamins [id number] , folate 3.2- no anemias currentlyFe and [...] heavy and throbs.Has seen multiple doctors in [place] for this.States when her back hurts, has [...] in her neck.None of her records from [place] are available for review here at time of exam.Also needs referral to OBGYN for f//u post hysterectomy 2022- left ovary and uterusin January removed her rt ovary- r/t a small cyst, mood swings, hot flashes.Hx of fibromyalgiaHx of depression, anxiety, bipolar, and split personality disorder.Followed by Yvrose Singh APRN - [facility] sharonda [facility]- declines to stop at this time.List of previous providers/surgeonsMt. [facility] [phone]. Julio C [place] [phone] Hospital [facility] [phone] Health [phone] [facility] [phone]. Rajesh Rodríguez, [facility] [phone] depression screening Depression screening completed on 07/14/2024. Patient scored a 14.-MORAIMA RAINEY PRAPARE PRAPARE complete d on 07/14/2024.-KBCM Instructions Date Instruction Additional Infor mation tylenol for pain as packing instructions Related to Jaw pain Take all antibiotics until complete. May take with food to ease stomach irritation. If you experience frequent yeast infections, you may consider taking an OTC probiotic like culturell or align while taking antibiotics. Use peridex solution two times daily. Seek dental kiana. Related to Dental abscess w/o sinus complete ordered nitish ting by pulmonologyf/u with Divya for use of Symbicort and testing results Related to Phxra-6-nafjzrrrhzo deficiency Low fat, low cholest anne diet. Avoid fatty, fried, and greasy foods. Physical activity as tolerated. Counseled on risks of associated comorbidities, such as heart disease and stroke. Encouraged avoidance of tobacco products. Related to Abnormal results of liver function studies Take medications as prescribed. Follow a sleep schedule. Try to engage in 30 minutes of moderate activity daily if tolerated, as exercise has been shown to improve depression symptomsKeep f/u appointment with Yvrose Related to Depression Patient instructed o n appropriate use of medications prescribed for neck pain. Discussed conservative measures such as heat, ice, gentle strength stretching, and core muscle strengthening. Avoid heavy lifting, pulling, or tugging. Contact the clinic if any worsening or new symptoms related to neck pain occur.Continue treatment through pain management as scheduled. Related to Cervicalgia continue to take 800 mg of Vit E daily Related to Deficiency of vitamin E Giving encouragement to exercise Related to Body mass index [BMI] 20.0-20.9, adult Lifestyle education regarding di et Related to Body mass index [BMI] 20.0-20.9, adult Keep wound clean and dryUse splint for [...] index [BMI] 20.0-20.9, adult Continue to keep [facility] oming appt with Gastroenterology for further evaluation [...] like for you to still f/u with OBGYN/METAL WINDOW SCREEN ASSEMBLER for further treatment. Related to Flushing associated w/ postprocedural menopause Giving encouragement to exercise Related to Body mass index [BMI] 19.9 or less, adult Lifestyle education regarding di et Related to Body mass index [BMI] 19.9 or less, adult Please make an appt with Dr. Baker- GynecologyKyy continue to use estrogen patches- refills todayLabs [...] Dorsalgia Referral has been jv guzman to [facility] on your behalf for continued care of previous diagnosis of psoriatic arthritis, rhematoid arthritis. The clinic should call you within 2 weeks with your appointment date and time. 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
--- OUTSIDE RECORDS SUMMARY | 2025-05-13 09:36 | XMS_ITS | Clinical Summary ---
Author Organization [facility] Address [address], [address] [place] [address] Care Team Providers Care Nursing Faculty Name Role Phone Marisa Newberry APRN, CNP [...] complete this topic Insurance [employer] MEDIC[place] [phone] Care Teams Nursing Faculty Relationship Specialty Start Date End Date Marisa Newberry APRN - ELECTRICITY TRADING ANALYST [address] [place] [phone] PCP - General 04/03/24
--- OUTSIDE RECORDS SUMMARY | 2025-05-13 09:36 | XMS_ITS | Clinical Summary ---
Author Organization [facility] Address [address] [place] [address] Care Team Providers Care Bank Worker Name Role Phone Clifton Miriam Robe VILLANUEVA Primary Care Provider [phone] Social History Tobacco Use Types Packs/Day Years [...] 2010 [facility]-Cervical Cancer Screening 2013 [facility]-HPV/Cotest 2013 [id number] Vaccine (1 - 20 24-25 season) 2025 [...] complete this topic Insurance MEDICARE Care Teams Bank Worker Relationship Specialty Start Date End Date Miriam Lazo APRN [address] [phone] PCP - General 07/20/24
--- OUTSIDE RECORDS SUMMARY | 2025-05-13 09:37 | XMS_ITS | Patient Health Record ---
Author Organization Delbert Walker MD S Address [address] [facility] [address] [place], [place] [id number] Care Team Providers Care Wire Winding Machine Tender Name Role Phone Shaun Recinos Unavailable Unavailable [...] Status W/U Status Risk Notes Problem Hypothyroidism (51610133) Hypothyroidism, unspecified (E03.9) Active confirmed Problem Major depression, single episode (42469186) Major depressive disorder, single episode, unspecified (F32.9) Active confirmed Problem Hyperprolactinemia (403529477) Hyperprolactinemia (E22.1) Active confirmed Plan Of Treatment [...] [employer] [place] [employer] [address] [place] [address] [id number] Dawna Daniels Self - patient is the insured Medical (General) History Medical History History ICD Code Galactohea Depression Giddiness , Vertigo Surgical History Surgery Date(Month/Year) Eye muscles x2 Tonsils and Adenoids Tubal Ligation Nova Sure Procedure Bladder Sling Hospitalization History Reason Date(Month/Year) See surgical HX Childbirth 3 day stay- Liver/ gallbladder issues- L [facility] 07/23/2016
[2025-05-13] MEDS: ALBUTEROL 0.083% 2.5 MG/3 ML NEB IH (10:26)
== END 2025-05-13 23:59 | disposition home or self-care (01) ==
LOC: RT 09:34
PROVIDERS: PCP Nurse Practitioner Family; Visit Provider Internal Medicine Pulmonary Disease
DX: R94.2 Abnormal results of pulmonary function studies (principal); R06.09 Other forms of dyspnea; R06.02 Shortness of breath
CPT/HCPCS: 94060; 94618; 94726; 94729

== ENCOUNTER 2025-05-17 12:48 | Emergency (ER) | payer MEDICARE, MEDICAID, SELFPAY ==
--- OUTSIDE RECORDS SUMMARY | 2009-09-28 20:00 | XMS_ITS | Continuity of Care Document ---
Author Organization [facility] Address [address] [place] [address] Phone Care Team Providers Care Test Pilot Name Role Phone Kelli Leahy MD Unavailable Unavailable Procedures Procedure Date Tdap Boostrix 10-18 [facility] Tdap Boostrix 10-18 [facility] Tdap Boostrix 10-18 [facility] Tdap Boostrix 10-18 [facility] Tdap Boostrix 10-18 [facility] Tdap Boostrix 10-18 [facility] MMR [facility] MMR [facility] MMR [facility] Flu TIV Coalition MMR Private Tdap 19-64 [facility] OFFICE/OUTPATIENT VISIT, EST Advance Directives Directive Yes / No Effective Date File Name Resuscitation Not Answered N/A N/A Life Support Not Answered N/A N/A Intubation Not Answered N/A N/A Antibiotics Not Answered N/A N/A IV Fluid Support Not Answered N/A N/A Tube Feed Not Answered N/A N/A Other Directive N/A N/A WARNING:The information contained in this section is historical and is provided for information only and does not constitute a legal document or any assurance that the information is still accurate. Please verify the information with the patel of the legal document before using it for clinical purposes. Encounters Encounter Description Practice Location Reason(s) For Visit Diagnoses Date Provider Providers Copied on Encounter OFFICE/OUTPAT IENT VISIT, EST [facility] Department , [address], [place], [place], [id number], tel:[phone] [facility] Dept Immunization No Information 0 Armond Pereira. [address], [place], [place], [id number] , . 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 YOANDY LOPEZ RN ; Source: New Immunization Record Tdap administered Source: New Imm unization Record MMR administered Source: New Imm unization Record flu (split) preservative nicho e, 3 yrs or older cancelled Source: New Immuniza tion Record Flu (split) (3 yrs or older) cancelled Source: New Immunization Record Payers Payer name Insurance type Covered libertarian ID Authoriza tion(s) [facility] [id number] Social History Type Description Quantity Date Captured Comments Alcohol Use Details Unknown Caffeine Use Details Unknown Tobacco Use Status No Information Smoking Status No Information Sex Female Chief Complaint And Reason For Visit No Information Reason For Referral Reason For Referral No Information History Of Present Illness Encounter Date Complaint History Of Prese nt Illness No Information Functional Status Date Functional Assessmen t No Information Instructions Date Instruction Additional Infor mation No Information Assessments Type Assessment Date No Information Patient Care Teams Name Effective Dates (start - stop) Status Members No Information
--- OUTSIDE RECORDS SUMMARY | 2025-05-11 07:00 | XMS_ITS | Continuity of Care Document ---
Author Organization [facility] Address [address] [place] [address] Phone Care Team Providers Care Vb Net Developer Name Role Phone Clifton MSN, INDUSTRIAL ENGINEERING TECHNOLOGIST, Miriam Unavailable Unavai lable Allergies, Adverse Reactions, [...] Procedure Date SCREEN DEPRESSION PERFORMED OFFICE/OUTPATIENT VISIT, [facility] Advance Directives Directive Yes / No Effective Date File Name No Information Encounters Encounter Description Practice Location Reason(s) For Visit Diagnoses Date Provider OFFICE/OUTPA TIENT VISIT, [facility], [address] [place] [address], [facility], tel:[phone] [facility] [place] jaw pain (chief complaint)P rapare (chief complaint)D epression screening (chief complaint) Extreme povertyOther specified lack of adequate foodEncounter for screening for depressionJaw painDental abscess w/o sinus Sep- 5 Lazo Miriam. [address], [place], [id number] , [place]. tel:[phone], [facility], tel:[phone] [facility] [place] er f/u (chief complaint) Body mass index [BMI] 20.0-20.9, adultDeficiency of vitamin RRtgbkrnavxtWqjib-9-ypux trypsin deficiencyAbnormal results of liver function studiesDepression Sep- 5 Lazo Miriam. [address] [place] [place], [id number] , [place]. tel:[phone], [facility], [place] tel:[phone] [facility] [place] er f/u (chief complaint) Encounter for change of nonsurgical wound dressingAnxietyBody mass index [BMI] 20.0-20.9, adultAbnormal results of liver function studies 5 Lazo Miriam. [address], [place], [id number] , [place]. tel:[phone] [facility], [address] [place] [address], [address], [place] tel:[phone] [facility] [place] follow up on labs (chief complaint) Body mass index [BMI] 19.9 or less, adultAbnormal results of liver function studiesPostmenopausal status 5 Lazo Miriam. [address], [place], [id number] , [place]. tel:[phone], [facility], [place] tel:[phone] [facility] [place] fasting labs (chief complaint) Gastric bypass status for obesity Lazo Miriam. [address], [place], [id number] , [place]. tel:[phone], [facility], [place] tel:[phone] [facility] [place] No Information 5 Ant Rodas[address] [place] [address], [id number] , [place]. tel:[phone], [facility], [place] tel:[phone] [facility] [place] Referrel (chief complaint) Body mass index [BMI] 19.9 or less, nigfaVbwuk-1-pnguzqsquoy deficiencyDyspnea, unspecified Lazo Miriam. [address] [place] [address], [id number] , [place]. tel:[phone] [place], [facility], tel:[phone] [facility] [place] plaque psoriasis (chief complaint)c hest pains/palpi tations (chief complaint)E levated ALK phos/GERD (chief complaint) Plaque psoriasisFlushing associated w/ postprocedural menopauseGERD disease w/ esophagitis, w/o bleedingSinus bradycardiaBody mass index [BMI] 19.9 or less, adult 5 Lazo Miriam. [address], [place], [id number] , . tel: [phone] [facility], [address] [place] [address], [facility], tel:[phone] [facility] [place] Medication Follow up (chief complaint)H ot Flashes (chief complaint)l ightheadnes s (chief complaint)w ebex (chief complaint) Body mass index [BMI] 19.9 or less, adultFlushing associated w/ postprocedural menopauseSyncope and collapseSinus bradycardia 5 Lazo Miriam. [address], [place], [id number] , . tel: [phone] [facility], [address] [place] [address], [facility], tel:[phone] [facility] [place] Follow up on Labs (chief complaint) Body mass index [BMI] 19.9 or less, adultAnxietyCervicalgiaD epressionFibromyalgia 4 Lazo Miriam. [address], [place], [id number] , [place]. tel: [phone] [facility], [address] [place] [address], [facility], tel:[phone] [facility] [place] depression screening (chief complaint)P RAPARE (chief complaint)N ew to establish (chief complaint) Encounter for screening for depressionExtreme povertyUnavailability and inaccessibility of other helping agenciesUnavailability and inaccessibility of health-care facilitiesProblem related to primary support group, unspecifiedCervicalgiaDo rsalgiaPsoriatic arthritis mutilansPostmenopausal statusFibromyalgiaAnxiet yDepressionGastric bypass status for obesityEncounter for screening for diabetes mellitus Clifton Pineda. [address] [place] [place], [place], [id number] , . tel: [phone] Family History Family Member Type Diagnosis Age [...] Insurance type Covered libertarian ID Authoriza tion(s) [facility] Adv [employer] CI [id number] [facility] Adv [employer] CI [id number] Social History Type Description Quantity Date Captured [...] due Goal PAP. Due on due Goal Hematocrit/Hemoglobin. Due o n due Goal Obtain Height, Weight, and B NE. Due on due Goal TSH. Due on due Goal Follow up Plan f or abnormal BMI (Less than 18.5, greater than 25). Due on due Goal Tobacco screening. Due on due Goal Drug Abuse Scree cayden Test (DAST-10). Due on due Goal HPV testing. Due on due Goal Hemoglobin (Pree edgardo/HR 9 months). Due on due Goal Vitamin B12. Due on due Goal Pap/HPV testing. Due on due Goal Unhealthy drug use screening due Goal Diabetes screening. Due on N due Goal Influenza vaccine. Due on due Goal Tobacco Use Screening. Due o n due Goal HPV. Due on due Goal HIV screen due Goal Vitamin D. Due on due Goal Hepatitis C Screening due Goal Lipid panel. Due on due Goal Hemoglobin (Pree edgardo/HR 9 months). Due on due Goal CBC. Due on due Goal HPV testing. Due on due Goal Depression screening. Due on due Goal Follow up Plan f or abnormal BMI (Less than 18.5, greater than 25). Due on due Goal TSH. Due on due Goal Unhealthy drug use screening due Goal Obtain Height, Weight, and B NE. Due on due Goal Hematocrit/Hemoglobin. Due o n due Goal Tobacco Use Screening. Due o n due Goal Vitamin D. Due on due Goal HIV screen due Goal CMP. Due on due Goal PAP. Due on due Goal Influenza vaccine. Due on Se due Goal Generalized Anxi ety Disorder - [...] due Goal HPV. Due on due Goal Lifestyle education regardin g diet completed Goal Lipid panel. Due on 026 due Goal CMP. Due on due Goal Hematocrit/Hemoglobin. Due o n due Goal Influenza vaccine. Due on Au due Goal Pap/HPV testing. Due on due Goal Drug Abuse Scree cayden Test (DAST-10). Due on due Goal HPV testing. Due on 029 due Goal CBC. Due on due Goal Hemoglobin (Pree edgardo/HR 9 months). Due on due Goal Hepatitis C Screening [...] due Goal Obtain Height, Weight, and B NE. Due on due Goal Generalized Anxi ety Disorder - 7 (SOL-7). Due on due Goal Diabetes screening. Due on N due Goal HIV screen due Goal PAP. Due on due Goal Unhealthy drug use screening due Goal Tobacco Use Cess ation Counseling. Due on due Goal Lifestyle education regardin [...] due Goal Obtain Height, Weight, and B NE. Due on due Goal Drug Abuse Scree [...] due Goal Obtain Height, Weight, and B NE. Due on due Goal Pap/HPV testing. Due [...] due Goal Obtain Height, Weight, and B NE. Due on due Goal Lipid panel. Due on due Goal Tobacco screening. Due on due Goal Tobacco Use Screening. Due o n due Goal HIV screen due Goal Diabetes screening. Due on due Goal Unhealthy drug use [...] Goal Diabetes screening. Due on due Goal TSH. Due on due Goal Obtain Height, Weight, and B NE. Due on due Goal Drug Abuse Scree [...] due Goal HPV. Due on due Goal Unhealthy drug use screening due Goal Obtain Height, Weight, and B NE. Due on due Goal HIV screen due Goal Diabetes screening. Due on due Goal Hepatitis C Screening due Goal CMP. Due on due Goal Depression screening. Due on due Goal Lipid panel. Due on due Goal Drug Abuse Scree cayden Test (DAST-10). Due on due Goal Tobacco Use Cess ation Counseling. Due on due Goal Generalized Anxi ety Disorder - 7 (SOL-7). Due on due Goal Vitamin B12. Due on due Goal Pap/HPV testing. Due on due Goal CBC. Due on due Goal TSH. Due on due Goal Follow up Plan f or abnormal BMI (Less than 18.5, greater than 25). Due on due Goal PAP. Due on due Goal Vitamin D. Due on due Goal Lifestyle education regardin g diet completed Goal Unhealthy drug use screening due Goal CMP. Due on due Goal HPV testing. Due on due Goal Generalized Anxi ety Disorder - 7 (SOL-7). Due on due Goal Obtain Height, Weight, and B NE. Due on due Goal Tobacco Use Screening. [...] Goal TSH. Due on due Goal Vitamin D. Due on due Goal Lipid panel. Due on due Goal Diabetes screening. Due on N due Goal Pap/HPV testing. Due on due Goal Lifestyle education regardin g diet completed Goal Pap/HPV testing. Due on due Goal Drug Abuse Scree cayden Test (DAST-10). Due on due Goal Generalized Anxi ety Disorder - 7 (SOL-7). Due on due Goal TSH. Due on due Goal Obtain Height, Weight, and B NE. Due on due Goal Unhealthy drug use screening due Goal Tobacco Use Cess ation Counseling. Due on due Goal Tobacco Use Screening. Due o n due Goal CMP. Due on due Goal HIV screen due Goal Diabetes screening. Due on due Goal CBC. Due on due Goal Depression screening. Due on due Goal Influenza vaccine. Due on due Goal Lipid panel. Due on due Goal HPV testing. Due on due Goal Vitamin B12. Due on 025 due Goal HPV. Due on due Goal Hepatitis C Screening due Goal PAP. Due on due Goal Vitamin D. Due on due Goal Follow up Plan f or abnormal BMI (Less than 18.5, greater than 25). Due on due Goal Lifestyle education regardin [...] due Goal Obtain Height, Weight, and B NE. Due on due Goal Diabetes screening. Due [...] [address] [place], [id number] Ordered: Referrals: Pulmonology. Jose Elias Silvestre. Location: [facility]. Evaluate and treat Appointment date/timeframe: 04/08/2025 ordered Referral Referred To: [facility] Ordered: Referrals: Dermatology. [facility]. Location: [place]. Evaluate and treat Appointment date/timeframe: 10/28/2024 ordered Referral Referred To: [facility] Ordered: Referrals: Cardiology. [facility]. Location: [place], [place]. Evaluate and treat Appointment date/timeframe: 10/01/2024 ordered Referral Ordered: ELECTROCARDIOGRAM, COMPLETE 12 Lead ordered Referral Referred To: [facility] Ordered: Referrals: Pain Management. [facility]. Evaluate and treat Appointment date/timeframe: 07/30/2024 ordered Referral Referred To: [facility] Ordered: Referrals: Gynecology. [facility]. Location: [facility]. Evaluate and treat Appointment date/timeframe: 08/13/2024 ordered Referral Referred To: [facility] Ordered: Referrals: Neurosurgery. [facility]. Location: [place]. Evaluate and treat Appointment date/timeframe: 08/17/2024 ordered [...] LUNGS:She also recently saw Dr. Stokes - [facility] is considering infusions" for her lungs to make them stronger.She has wvhcz-0-gyieeyofxtc phenotype.She carries a diagnosis of Asthma as [...] further need of medication/plan. She voiced understanding. Gamma Operator Exam/Pap, and Mammo completed 02/14/25Estradiol 0.01% gram [...] after cutting the tip off with a front end web designer.Today the tissue is granulated, red, and appears [...] elevationhx of cholysectomy 2016followed by GI at 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 Referrel Dawna is here to day for a referral to a lung specialist. GERARDO drake recommended that she see a facility sales and admin due to being at a higher risk for lung disease/cancer, related to her liver. After reviewing multiple records from multiple specialist and previous [place] records, I was able to find documentation [...] for further evaluation to r/u lung disease. Enhzr-0-vswrtixcrm was found to be low at 87, Phenotype MZ through labs completed by GERARDO.Dawna is a newer patient that has recently established care here- from [place].Hx of Bipolar with hospitalization 05/04/24 for Suicidal ideation.She was homeless and living in a snf with her 3 children.She currently sees [facility]-Yvrose Hess and is on Venlafaxine 37.5 mg [...] series of lab work w/ GI- finding Mnrwj-5-jjaksvareln was low at 87, phenotype MZ. negative [...] work-up of liveralk phos 125 in [facility] negx of GI gastric by-passCraves sugar, milk, and meatself reports hx of fatty liver. States woke from sleep 2 nights ago with sharp burning chest pain.on Omepraozle 40 mg for the last few years via her previous GI doc in [place].Has appt to see GI at [facility] on November 08 or chest pains/palpitations followe d by Dr. Duy Lyons MD- [facility] cardiologyWearing Holter monitor for 14 days - [...] about 1.5 years, but recently relocated to [place] from [place], and is in need of it. When [...] but would like er to f/u w/ programming manager.Had a complete melt down yesterdaystates that she had a heart murmur as a child, but in her 20's went away, but had a heart monitor x 3 months and was cleared.Seen Cardiology 20 years ago in [place].1st had a scan and had a problem with her vallve, but after had a YASMANI and was reported as no problem.REcords not currently available. EKG in office today sinus mee hr 53, borderline EKGcardiology referral webex Patient and/or G uardian has verified being in the [facility] and has given verbal consent to [...] of gastric bypass- not taking any vitamins rzzosweciB27 , folate 3.2- no anemias currentlyFe and [...] heavy and throbs.Has seen multiple doctors in [place] for this.States when her back hurts, has [...] in her neck.None of her records from [place] are available for review here at time of exam.Also needs referral to OBGYN for f//u post hysterectomy 2022- left ovary and uterusin January removed her rt ovary- r/t a small cyst, mood swings, hot flashes.Hx of fibromyalgiaHx of depression, anxiety, bipolar, and split personality disorder.Followed by Yvrose Singh APRN - [facility]- declines to stop at this time.[facility] of previous providers/[facility] [phone]. Julio C [place] [phone] [phone] [phone] [place] [facility] [phone]. Rajesh Rodríguez, [facility] [phone] depression screening Depression screening completed on 07/14/2024. [...] peridex solution two times daily. Seek dental [place]. Related to Dental abscess w/o sinus complete ordered nitish ting by pulmonologyf/u with Divya for use of Symbicort and testing results Related to Rjdto-0-gitliimplej deficiency Low fat, low cholest anne diet. [...] index [BMI] 20.0-20.9, adult Continue to keep [facility] oming appt with Gastroenterology for further evaluation [...] like for you to still f/u with OBGYN/METER INSPECTOR for further treatment. Related to Flushing associated w/ postprocedural menopause Giving encouragement to exercise Related to Body mass index [BMI] 19.9 or less, adult Lifestyle education regarding di et Related to Body mass index [BMI] 19.9 or less, adult Please make an appt with Dr. Baker- GynecologyAzy continue to use estrogen patches- refills todayLabs [...] Mental Status Date Cognitive Assessment Orientation - [place] ed to time, place, person, situation.
[2025-05-17 14:02] VITALS: BP 119/77; PULSE 67; RESP 17; TEMP 37; O2SAT 98; BMI 20.2
--- OUTSIDE RECORDS SUMMARY | 2025-05-17 14:03 | XMS_ITS | Clinical Summary ---
Author Organization [facility] Address [address], [address] [place] [address] Care Team Providers Care Operater Name Role Phone Marisa Newberry APRN, CNP [...] complete this topic Insurance HUMANA MEDICARE AENA [facility] Care Teams Operater Relationship Specialty Start Date End Date Marisa Newberry APRN - MANGLE [employer] OPERATOR [address] [place] [id number] PCP - General 04/03/24
--- OUTSIDE RECORDS SUMMARY | 2025-05-17 14:03 | XMS_ITS | Clinical Summary ---
Author Organization Healthcare Address [address] [place] [address] Care Team Providers Care Client Coordinator Name Role Phone Clifton Miriam Robe VILLANUEVA Primary Care Provider [phone] Social History Tobacco Use Types Packs/Day Years [...] 2010 [facility]-Cervical Cancer Screening 2013 [facility]-HPV/Cotest 2013 [id number] Vaccine (1 - 20 24-25 season) 2025 [...] complete this topic Insurance MEDICARE Care Teams Client Coordinator Relationship Specialty Start Date End Date Miriam Lazo APRN [address] [id number] [phone] PCP - General 07/20/24
--- OUTSIDE RECORDS SUMMARY | 2025-05-17 14:03 | XMS_ITS | Patient Health Record ---
Author Organization Delbert Walker MD S Address [address] [facility] [address] [place], [place] [id number] Care Team Providers Care Services Engineer Name Role Phone Shaun Recinos Unavailable Unavailable [...] Status W/U Status Risk Notes Problem Hypothyroidism (73644558) Hypothyroidism, unspecified (E03.9) Active confirmed Problem Major depression, single episode (05898114) Major depressive disorder, single episode, unspecified (F32.9) Active confirmed Problem Hyperprolactinemia (852810959) Hyperprolactinemia (E22.1) Active confirmed Plan Of Treatment [...] [employer] [place] [employer] [address] [place] [address] [id number] Dawna Daniels Self - patient is the insured Medical (General) History Medical History History ICD Code Galactohea Depression Giddiness , Vertigo Surgical History Surgery Date(Month/Year) Eye muscles x2 Tonsils and Adenoids Tubal Ligation Nova Sure Procedure Bladder Sling Hospitalization History Reason Date(Month/Year) See surgical HX Childbirth 3 day stay- Liver/ gallbladder issues- L [facility] 07/23/2016
--- NOTE | 2025-05-17 14:21 | CT_ITS ---
FINAL REPORT TECHNIQUE: Thin section axial images were obtained through the lumbar spine without contrast. Sagittal and coronal reconstruction images were obtained from the axial data. Exam was performed using dose reduction techniques. This study was performed with techniques to keep radiation doses as low as reasonably achievable (ALARA). Individualized dose reduction techniques using automated exposure control or adjustment of mA and/or kV according to the patient's size were employed. CLINICAL HISTORY: low back pain COMPARISON: None FINDINGS: There is no acute fracture or acute malalignment of the lumbar spine. Vertebral body height is preserved. There is mild multilevel degenerative disease with disc space narrowing. There is no significant central stenosis. Limited evaluation of the paraspinal soft tissues are within normal limits, as no soft tissue windows were submitted. There is no paraspinal mass or fluid collection. IMPRESSION: No acute abnormality of the lumbar spine. Mild multilevel degenerative disease. Consider MRI for further evaluation if symptoms persist. Reviewed, Interpreted and Dictated by Mei Pena MD Transcribed by Roselyn Augustin Authenticated and [facility]
--- NOTE | 2025-05-17 14:43 | ED_ITS ---
<Statement entered by Gunner Terry MD - 05/17/25 19:14> I was consulted by the [place], and we discussed the complexity of the problems being addressed. I approve the treatment and management plan for this patient's care in the emergency department, thus performing a substantive portion of the medical decision making. Gunner Terry MD <Statement entered by Tom Rodriguez MD - 05/17/25 16:11> I consulted the [place], and we discussed the complexity of the problems being addressed. I approved the treatment and management plan for this patient's care in the emergency department, thus performing a substantial portion of the medical decision making. Jos Rodriguez MD Discharge Plan Disposition Patient Disposition: Home, Self-Care Prescriptions Prescriptions: New methocarbamol 500 mg tablet 1,000 mg PO Q8H 6 Days Qty: 36 0RF ketorolac 10 mg tablet 10 mg PO Q8H PRN (Reason: pain) 5 Days Qty: 20 0RF No Action PNV 50-snbq-ptzlc cntv-lwewp-3 30 mg iron-10 mg iron-1 mg capsule 1 cap PO DIRECTED vitamin E (dl, acetate) 45 mg (100 unit) capsule 45 mg PO DAILY hydrocortisone 2.5 % ointment 2.5 applic topical DIRECTED Patient Comments: APPLY OINTMENT EXTERNALLY TO AFFECTED AREA TWICE DAILY FOR 2 WEEKS AND THEN TAKE A 1 WEEK BREAK diltiazem HCl 120 mg capsule,extended release 24hr 120 mg PO DAILY Qty: 30 5RF lamotrigine 100 mg tablet 100 mg PO HS Patient Comments: TAKE 1 TABLET BY MOUTH ONCE DAILY AT NIGHT AT BEDTIME DIRECTED estradiol 0.01 % (0.1 mg/gram) cream See Rx Instructions .ROUTE .COMPLEX Qty: 43 4RF Dose Instruction: DISCARD APPLICATER AND APPLY BLUEBERRY SIZE AMOUNT OF CREAM TO THE OPENING OF THE VAGINA Rx Instructions: DISCARD APPLICATER AND APPLY BLUEBERRY SIZE AMOUNT OF CREAM TO THE OPENING OF THE VAGINA omeprazole magnesium 20 mg tablet,delayed release (DR/EC) 40 mg PO DAILY 90 Days Qty: 180 1RF estradiol 0.05 mg/24 hr patch weekly See Rx Instructions .ROUTE .COMPLEX Qty: 4 12RF Dose Instruction: APPLY 1 PATCH TOPICALLY ONCE A WEEK Rx Instructions: APPLY 1 PATCH TOPICALLY ONCE A WEEK baclofen 5 mg tablet 5 mg PO TID Qty: 90 2RF venlafaxine 37.5 mg tablet 37.5 mg PO DAILY bacitracin 500 unit/gram ointment 1 applic topical DAILY 7 Days Qty: 14 0RF sulfamethoxazole-trimethoprim 800-160 mg tablet 1 tab PO Q12H 7 Days Qty: 14 0RF Referrals Follow up/Referrals: Miriam Lazo APRN [Primary Care Provider, Medical] - See instructions Activity Restrictions/Add. Instructions Additional Instructions/Restrictions: Take medications as directed. Please contact your PCP for further management with medications and possible further imaging. Clinical Impressions Clinical Impression: Low back pain, Chronic pain syndrome, Lumbar radiculopathy Instructions Patient Instructions: DI for Low Back Pain, DI for Lumbar Radiculopathy Print Language Print Language: Croatian Discharge ED Provider: Tom Rodriguez Adult HPI General Chief complaint: PAIN Stated complaint: lower back locked, infection in R arm Time Seen by Provider: 05/17/25 14:09 Mode of Arrival: Ambulatory Source of Information: Patient Description of Symptoms (Recalled from ER Triage Doc. by RN): pt to the ED with lower back pain x 3 days after picking up a case of water and feeling a sharp pain in her back. pt denies any loss of bowel or bladder and is able to ambulate slowly at this time. pt seperately complains of a burn on her right forearm after getting a pizza out of an oven saturday. on assessment it is swollen but doesnt have any redness, drainage or streaking at this time. pt denies fever History of Present Illness HPI narrative: 40-year-old female presents to the ED with lower back pain that goes down her left leg for the past 3 days after picking up a case of water. She says she picked the water up and noticed that she started having an exacerbation of her chronic back pain that she already has. She denies any bowel or bladder changes. She is able to walk but she is walking slower than usual. She does tell me that she has a burn on her right forearm as well. It is healing with minimal redness and no drainage or streaking. No fevers, chills, nausea or vomiting. Patient has been taking Tylenol for her pain in her back and it is not working. She has had a gastric bypass in the past and she is concerned about taking too much Tylenol. She is unable to take any NSAIDs. Related Data Home Medications ?Medication ?Instructions ?Recorded ?Confirmed lamotrigine 100 mg tablet 100 mg PO HS 10/01/24 vitamins 30 30 mg iron-10 1 cap PO DIRECTE D 10/29/24 04/29/25 mg iron-folic acid 1 mg-om3 capsule vitamin E (dl, acetate) 45 mg (100 45 mg PO DAILY 02/1704/29/25 unit) capsule venlafaxine 37.5 mg tablet 37.5 mg PO DAILY 10/30/24 0 04/29/25 hydrocortisone 2.5 % topical 2.5 applic topical DIR ECTED 11/19/24 04/29/25 ointment Previous Rx's ?Medication ?Instructions ?Recorded diltiazem HCl 120 mg capsule,24 120 mg PO DAILY #30 ca ps 11/19/24 hr,extended release estradiol 0.01% (0.1 mg/gram) See Rx Instructions .Rou te 03/02/25 vaginal cream .COMPLEX #43 grams omeprazole magnesium 20 mg 40 mg (2 x 20 mg) PO DAILY 90 days 03/03/25 tablet,delayed release #180 tabs bacitracin 500 unit/gram topical 1 applic topical ADAL Y 7 days #14 04/10/25 ointment grams estradiol 0.05 mg/24 hr weekly See Rx Instructions .Ro opal 04/21/25 transdermal patch .COMPLEX #4 patches sulfamethoxazole 800 1 tab PO Q12H 7 days #14 tab s 04/24/25 mg-trimethoprim 160 mg tablet baclofen 5 mg tablet 5 mg PO TID #90 tabs 5 ketorolac 10 mg tablet 10 mg PO Q8H PRN pain 5 days #20 05/17/25 tabs methocarbamol 500 mg tablet 1,000 mg (2 x 500 mg) PO Q 8H 6 05/17/25 days #36 tabs Allergies Allergy/AdvReac Type Severity Reaction Status Date / Time aspirin Allergy Dizziness Verified 04/29/25 14:08 NSAIDS (Non-Steroidal AdvReac Other Verified 04/29/25 14:08 [facility] Disclaimer: The information contained in this section may have been updated after the patient was seen, as this information can be updated by other users. 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 Cholecystectomy planned Mqmqp-2-ekphtdlfscu deficiency SVT (supraventricular tachycardia) Bipolar 1 disorder Surgical History History of carpal tunnel surgery Hx of cholecystectomy History of tonsillectomy and adenoidectomy History of hysterectomy Gastric bypass status for obesity Social History Smoking Status: Former smoker alcohol intake: never substance use type: marijuana current occupational status: other Travel in the last 8 weeks?: None Have you lived/traveled outside US in past 30 days?: No Contact w/someone who lives/traveled outside US past 30 days?: No Exposure to someone with infectious disease in past 14 days?: No Do you have a fever (greater than 100.4 F or 38 C)?: No Have you tested positive for COVID-19?: No Exposed to someone with COVID-19 in past 14 days?: No Do you have a sore throat?: No Do you have a cough?: No Do you have any weakness?: No Do you have any diarrhea?: No Are you experiencing any unusual bleeding?: No Do you have any muscle aches/pain?: No Do you have any abdominal pain?: No Are you experiencing loss of taste or smell?: No Other Medical History Have you received the Flu Vaccine for this season: No Have you received the Pneumonia Vaccine: No ROS Obtained: Yes Systems reviewed as appropriate & no additional complaints except as documented Constitutional Constitutional: Reports as per HPI Physical Exam General General appearance: alert Head Head exam: normocephalic Eye Eye exam: Present PERRL and EOMI ENT ENT exam: Present normal oropharynx and mucous membranes moist Neck Neck exam: Present full ROM and trachea midline Respiratory Respiratory exam: Present normal lung sounds bilaterally Cardiovascular Cardiovascular exam: Present regular rate, normal rhythm, +S1 and +S2 Extremities Exam Extremities exam: Present full ROM and normal capillary refill Back Exam Back exam: Present tenderness Neurological Exam Neurological exam: Present alert and oriented X3 Skin Skin exam: Present warm, dry and intact Medical Decision Making Medical Records Screening: Per USPSTF and CDC recommendations, given the prevalence of disease in our region, it is our hospital?s policy to screen for HIV and viral Hepatitis for all patients aged 18 and over and those with ongoing risk factors. Dejon Inquiry Pt receiving controlled substance: No Dejon was queried for this patient: No Vital Signs: 05/17/25 14:02 05/17/25 17:00 05/17/25 17:30 Temperature 98.6 F Temperature Source Oral Pulse Rate 54 L 60 Pulse Rate [Left Radial] 67 Respiratory Rate 17 Blood Pressure 110/69 113/58 L Blood Pressure [Right Arm] 119/77 Blood Pressure Mean [Right Arm] 91 Blood Pressure Source Blood Pressure Source [Right Arm] Automatic Cuff Blood Pressure Position Blood Pressure Position [Right Arm] Sitting 02 Sat by Pulse Oximetry 98 98 97 Oxygen Delivery Method Room Air 05/17/25 18:47 Temperature 98.2 F Temperature Source Oral Pulse Rate 60 Pulse Rate [Left Radial] Respiratory Rate 18 Blood Pressure 111/73 Blood Pressure [Right Arm] Blood Pressure Mean [Right Arm] Blood Pressure Source Automatic Cuff Blood Pressure Source [Right Arm] Blood Pressure Position Sitting Blood Pressure Position [Right Arm] 02 Sat by Pulse Oximetry Oxygen Delivery Method Room Air Lab Data Lab Results 05/17/25 15:23: WBC 5.6, RBC 4.10 L, Hgb 12.9, Hct 38.0, MCV 92.7, MCH 31.5 H, MCHC 33.9, RDW 12.4, Plt Count 226, MPV 9.0, Neut % (Auto) 49.4, Lymph % (Auto) 37.7, Kenton % (Auto) 6.0, Eos % (Auto) 6.0, Baso % (Auto) 0.7, Neut # (Auto) 2.8, Lymph # (Auto) 2.1, Kenton # (Auto) 0.3, Eos # (Auto) 0.3, Baso # (Auto) 0.0, Sodium 138, Potassium 3.8, Chloride 99, Carbon Dioxide 29, Anion Gap 13.8, BUN 17, Creatinine 0.80, Estimated Creat Clear 68, Estimated GFR 79, Est GFR ( Amer) 95, Glucose 137 H, Calcium 9.5, Magnesium 2.2, Total Bilirubin 0.8, AST 47 H, ALT 24, Alkaline Phosphatase 76, Total Protein 8.4 H, Albumin 5.0, Globulin 3.4 H, Albumin/Globulin Ratio 1.5, Lipase 95 05/17/25 15:23 05/17/25 15:23 Orders (Tests/Meds): ED MEDICATIONS Discontinued Medications Generic Name Dose Route Start Last Admin Trade Name Eugenio PRN Reason Stop Dose Admin Acetaminophen 1,000 mg 05/17/25 14:36 05/17/25 16:29 Acetaminophen 500mg Tab PO 05/17/25 14:37 1,000 mg ONCE ONE Administration Dexamethasone Sodium Phosphate 8 mg 05/17/25 14:22 05/17/25 16:30 Dexamethasone 4mg/Ml 5ml Mdv IM 05/17/25 14:23 8 mg ONCE ONE Administration Ketorolac Tromethamine 60 mg 05/17/25 14:21 05/17/25 16:30 Ketorolac 60mg/2ml Vial IM 05/17/25 14:22 60 mg ONCE ONE Administration Methocarbamol 1,500 mg 05/17/25 14:36 05/17/25 16:29 Methocarbamol 500mg Tablet PO 05/17/25 14:37 1,500 mg ONCE ONE Administration Oxycodone HCl 5 mg 05/17/25 14:37 05/17/25 16:29 Oxycodone 5mg Immediate Release Tablet PO 05/17/25 14:38 5 mg ONCE ONE Administration ORDERS Category Date Time Status CT lumbar spine wo con Stat Cat Scan 05/17/25 14:21 Completed CBC [Complete Blood Count Auto Diff] Stat Lab 05/17/25 15:23 Completed Comprehensive Metabolic Panel Stat Lab 05/17/25 15:23 Completed Lipase Stat Lab 05/17/25 15:23 Completed Magnesium Stat Lab 05/17/25 15:23 Completed Medical Decision Narrative: patient is a 40-year-old female presenting to the emergency department for evaluation of low back pain. Patient is hemodynamically stable and nontoxic- appearing upon arrival, afebrile. Differential diagnosis includes chronic back pain exacerbation,. Workup will be conducted with hematologic labs, specific imaging. Initial inventions include analgesics. CT scan shows nothing acute. This is likely from her chronic lumbar radiculopathy. I discussed with her having her PCP order an MRI for further imaging especially if pain continues or worsens. I discussed with Dr. Terry medication management which we agreed on. Patient safe for discharge home Critical Care Critical Care Time Critical Care Time: No
[2025-05-17 15:32] LABS: Hematocrit 38.0 % (37.0-47.0); Hemoglobin 12.9 g/dL (12.2-16.2); Immature Granulocytes % 0.2 %; Mean Corpuscular HGB Conc 33.9 g/dL (31.8-35.4); Mean Corpuscular Hemoglobin 31.5 pg (27.0-31.2); Mean Corpuscular Volume 92.7 fl (81-99); Nucleated Red Blood Cells % 0 %; Platelet Count 226 K/mm3 (142-424); Red Blood Count 4.10 M/mm3 (4.20-5.40); Red Cell Distribution Width-SD 42.0 fL; White Blood Count 5.6 K/mm3 (4.8-10.8)
[2025-05-17 15:37] LABS: Albumin Level 5.0 g/dl (3.5-5.0); Chloride 99 mmol/L (98-107); Potassium 3.8 mmoL/L (3.5-5.1); Sodium 138 mmol/L (136-145)
[2025-05-17 15:39] LABS: Blood Urea Nitrogen 17 mg/dl (7-17); Creatinine Clearance Estimated 68 mL/min (50-200); Creatinine,Serum 0.80 mg/dl (0.52-1.04); Estimated Glomerular Filt Rate 79 ml/min (>60); GFR (African American) 95 ML/MIN (>60)
[2025-05-17 15:40] LABS: Alanine Aminotransferase 24 U/L (12-78); Albumin/Globulin Ratio 1.5 (1.1-1.8); Alkaline Phosphatase 76 U/L (38-126); Anion Gap 13.8 mEq/L (5-15); Aspartate Amino Transferase 47 U/L (14-36); Bilirubin,Total 0.8 mg/dl (0.2-1.3); Calcium 9.5 mg/dl (8.4-10.2); Carbon Dioxide 29 mmol/L (22.0-30.0); Globulin 3.4 g/dL (1.3-3.2); Glucose 137 mg/dl (74-100); Lipase 95 U/L (23-300); Magnesium 2.2 mg/dl (1.6-2.3); Total Protein,Serum 8.4 g/dl (6.3-8.2)
[2025-05-17] MEDS: METHOCARBAMOL 500MG TABLET 1500 MG PO (16:29)
[2025-05-17] MEDS: ACETAMINOPHEN 500MG TAB 1000 MG PO (16:29)
[2025-05-17] MEDS: OXYCODONE 5MG IMMEDIATE RELEASE TABLET 5 MG PO (16:29)
[2025-05-17] MEDS: KETOROLAC 60MG/2ML VIAL 60 MG IM (16:30)
[2025-05-17] MEDS: DEXAMETHASONE 4MG/ML 5ML MDV 8 MG IM (16:30)
[2025-05-17 17:00] VITALS: BP 110/69; PULSE 54; O2SAT 98
[2025-05-17 17:30] VITALS: BP 113/58; PULSE 60; O2SAT 97
[2025-05-17 18:47] VITALS: BP 111/73; PULSE 60; RESP 18; TEMP 36.8; O2SAT 97
== END 2025-05-17 18:49 | disposition home or self-care (01) ==
PROVIDERS: Nurse Practitioner; Emergency Provider Student in an Organized Health Care Education/Training Program; PCP Nurse Practitioner Family
DX: M54.16 Radiculopathy, lumbar region (principal); G89.29 Other chronic pain; X50.0XXA Overexertion from strenuous movement or load, initial encounter
CPT/HCPCS: 72131; 80053; 83690; 83735; 85025; 96372; 99283; 99284; J1100; J1885

== ENCOUNTER 2025-05-24 14:42 | Outpatient (CLI) | payer MEDICARE, MEDICAID, SELFPAY ==
--- OUTSIDE RECORDS SUMMARY | 2025-05-24 14:48 | XMS_ITS | Clinical Summary ---
Author Organization Healthcare Address [address] [place] [address] Care Team Providers Care Clinical Social Worker Name Role Phone Clifton Miriam Robe VILLANUEVA Primary Care Provider [phone] Social History Tobacco Use Types Packs/Day Years [...] 2010 [facility]-Cervical Cancer Screening 2013 [facility]-HPV/Cotest 2013 [id number] Vaccine (1 - 20 24-25 season) 2025 [...] complete this topic Insurance MEDICARE Care Teams Clinical Social Worker Relationship Specialty Start Date End Date Miriam Lazo APRN [address] [id number] [phone] PCP - General 07/20/24
--- NOTE | 2025-05-24 15:17 | XR_ITS ---
FINAL REPORT CLINICAL HISTORY: neck pain COMPARISON: None FINDINGS: Three views of the cervical spine were obtained. There is no fracture present. There is no malalignment. There is mild disc space narrowing at C5-6 and C6-7 with small posterior osteophytes at these levels. Reversal of the normal cervical lordosis is noted. IMPRESSION: Mild degenerative/chronic changes without acute bony abnormality. Reversal of normal cervical lordosis. Reviewed, Interpreted and Dictated by Zia Rojas MD Transcribed by Neeta Khan Authenticated and [facility]
== END 2025-05-24 23:59 | disposition home or self-care (01) ==
LOC: RAD 14:44
PROVIDERS: PCP Nurse Practitioner Family; Visit Provider Nurse Practitioner Family
DX: M47.812 Spondylosis without myelopathy or radiculopathy, cervical region (principal); M43.8X2 Other specified deforming dorsopathies, cervical region
CPT/HCPCS: 72040

== ENCOUNTER 2025-07-20 05:01 | Emergency (ER) | payer MEDICARE, MEDICAID, SELFPAY ==
--- OUTSIDE RECORDS SUMMARY | 2025-07-20 05:11 | XMS_ITS | Clinical Summary ---
Author Organization [facility] Address [address], [address] [place] [address] Care Team Providers Care Boy'S Adviser Name Role Phone Marisa Newberry APRN, CNP [...] complete this topic Insurance HUMANA MEDICARE AENA [facility] Care Teams Boy'S Adviser Relationship Specialty Start Date End Date Marisa Newberry APRN - BOARD [employer] DIRECTORS [address] [place] [phone] PCP - General 04/03/24
--- OUTSIDE RECORDS SUMMARY | 2025-07-20 05:11 | XMS_ITS | Clinical Summary ---
Author Organization Healthcare Address [address] [place] [address] Care Team Providers Care Director Post Name Role Phone Clifton Miriam Robe VILLANUEVA Primary Care Provider [phone] Social History Tobacco Use Types Packs/Day Years [...] 2010 [facility]-Cervical Cancer Screening 2013 [facility]-HPV/Cotest 2013 [id number] Vaccine (1 - 20 25-26 season) 2025 [facility]-Influenza Vaccine (#1) 2025 06/25/2024 [...] complete this topic Insurance MEDICARE Care Teams Director Post Relationship Specialty Start Date End Date Miriam Lazo APRN [address] [id number] [phone] PCP - General 07/20/24
[2025-07-20 05:14] VITALS: BP 113/71; PULSE 55; RESP 18; TEMP 37.2; O2SAT 100; BMI 17.4
[2025-07-20 05:19] VITALS: BP 113/71; PULSE 55; RESP 18; TEMP 36.9; O2SAT 100
--- NOTE | 2025-07-20 05:19 | ED_ITS ---
Discharge Plan Disposition Patient Disposition: Admitted Prescriptions Prescriptions: New sulfamethoxazole-trimethoprim 800-160 mg tablet 1 tab PO BID 7 Days Qty: 14 0RF No Action PNV [id number] 30 mg iron-10 mg iron-1 mg capsule 1 cap PO DIRECTED vitamin E (dl, acetate) 45 mg (100 unit) capsule 45 mg PO DAILY hydrocortisone 2.5 % ointment 2.5 applic topical DIRECTED Patient Comments: APPLY OINTMENT EXTERNALLY TO AFFECTED AREA TWICE DAILY FOR 2 WEEKS AND THEN TAKE A 1 WEEK BREAK lamotrigine 100 mg tablet 100 mg PO HS Patient Comments: TAKE 1 TABLET BY MOUTH ONCE DAILY AT NIGHT AT BEDTIME DIRECTED montelukast [Singulair] 10 mg tablet 10 mg PO DAILY Qty: 90 2RF estradiol 0.01 % (0.1 mg/gram) cream See Rx Instructions .ROUTE .COMPLEX Qty: 43 4RF Dose Instruction: DISCARD APPLICATER AND APPLY BLUEBERRY SIZE AMOUNT OF CREAM TO THE OPENING OF THE VAGINA Rx Instructions: DISCARD APPLICATER AND APPLY BLUEBERRY SIZE AMOUNT OF CREAM TO THE OPENING OF THE VAGINA omeprazole magnesium 20 mg tablet,delayed release (DR/EC) 40 mg PO DAILY 90 Days Qty: 180 1RF estradiol 0.05 mg/24 hr patch weekly See Rx Instructions .ROUTE .COMPLEX Qty: 4 12RF Dose Instruction: APPLY 1 PATCH TOPICALLY ONCE A WEEK Rx Instructions: APPLY 1 PATCH TOPICALLY ONCE A WEEK baclofen 5 mg tablet 5 mg PO TID Qty: 90 2RF diltiazem HCl 120 mg capsule,extended release 24 hr 120 mg PO DAILY Qty: 30 5RF venlafaxine 37.5 mg tablet 37.5 mg PO DAILY methocarbamol 500 mg tablet 1,000 mg PO Q8H 6 Days Qty: 36 0RF ketorolac 10 mg tablet 10 mg PO Q8H PRN (Reason: pain) 5 Days Qty: 20 0RF bacitracin 500 unit/gram ointment 1 applic topical DAILY 7 Days Qty: 14 0RF sulfamethoxazole-trimethoprim 800-160 mg tablet 1 tab PO Q12H 7 Days Qty: 14 0RF Referrals Follow up/Referrals: Miriam Lazo APRN [Primary Care Provider, Medical] - See instructions Activity Restrictions/Add. Instructions Additional Instructions/Restrictions: Please follow-up with your primary care provider. Please return to the emergency department if you develop any new or worsening symptoms or become concerned for your health. Clinical Impressions Clinical Impression: UTI (urinary tract infection) Qualifiers: Urinary tract infection type: acute cystitis Hematuria presence: with hematuria Qualified Code(s): N30.01 - Acute cystitis with hematuria Instructions Patient Instructions: DI for Urinary Tract Infection (UTI), DI for Urinary Tract Infection in Children Print Language Print Language: Latvian Discharge ED Provider: Daniel Nagel General Adult HPI General Chief complaint: Urogenital-Female Stated complaint: burning, pain when urinating, freg. urination Time Seen by Provider: 07/20/25 05:05 Mode of Arrival: Ambulatory Source of Information: Patient Description of Symptoms (Recalled from ER Triage Doc. by RN): PT presents to the ED for evaluation of urethra burning. PT stated it started at 0230 on this date. History of Present Illness HPI narrative: 40-year-old female with extensive past medical history presents for dysuria. She reports burning with urination, urinary frequency and urgency. Symptoms started tonight. She denies any concern for or STD. Denies any fever. Related Data Home Medications ?Medication ?Instructions ?Recorded ?Confirmed lamotrigine 100 mg tablet 100 mg PO HS 10/01/24 vitamins 30 30 mg iron-10 1 cap PO DIRECTE D 10/29/24 06/07/25 mg iron-folic acid 1 mg-om3 capsule vitamin E (dl, acetate) 45 mg (100 45 mg PO DAILY 02/1706/07/25 unit) capsule venlafaxine 37.5 mg tablet 37.5 mg PO DAILY 10/30/24 1 hydrocortisone 2.5 % topical 2.5 applic topical DIR ECTED 11/19/24 06/07/25 ointment Previous Rx's ?Medication ?Instructions ?Recorded estradiol 0.01% (0.1 mg/gram) See Rx Instructions .Rou te 03/02/25 vaginal cream .COMPLEX #43 grams omeprazole magnesium 20 mg 40 mg (2 x 20 mg) PO DAILY 90 days 03/03/25 tablet,delayed release #180 tabs bacitracin 500 unit/gram topical 1 applic topical ADAL Y 7 days #14 04/10/25 ointment grams estradiol 0.05 mg/24 hr weekly See Rx Instructions .Ro opal 04/21/25 transdermal patch .COMPLEX #4 patches sulfamethoxazole 800 1 tab PO Q12H 7 days #14 tab s 04/24/25 mg-trimethoprim 160 mg tablet baclofen 5 mg tablet 5 mg PO TID #90 tabs 5 ketorolac 10 mg tablet 10 mg PO Q8H PRN pain 5 days #20 05/17/25 tabs methocarbamol 500 mg tablet 1,000 mg (2 x 500 mg) PO Q 8H 6 05/17/25 days #36 tabs diltiazem HCl 120 mg capsule,24 120 mg PO DAILY #30 ca ps 05/18/25 hr,extended release montelukast 10 mg tablet 10 mg PO DAILY #90 tabs 05/26 11/17 (Singulair) sulfamethoxazole 800 1 tab PO BID 7 days #14 tabs 07/20/25 mg-trimethoprim 160 mg tablet Allergies Allergy/AdvReac Type Severity Reaction Status Date / Time aspirin Allergy Dizziness Verified 06/07/25 13:32 NSAIDS (Non-Steroidal AdvReac Other Verified 06/07/25 13:32 Anti-Inflamma [facility] [place] Disclaimer: The information contained in this section may have been updated after the patient was seen, as this information can be updated by other users. Medical History (Updated 07/20/25 @ 06:06 by Daniel Nagel MD) PTSD (post-traumatic stress disorder) Depression Anxiety Asthma History of smoking for 6-10 years Dyspnea on exertion [id number] deficiency Hx of varicose veins of lower extremity Cholecystectomy planned [id number] deficiency SVT (supraventricular tachycardia) Bipolar 1 disorder Surgical History (Updated 06/07/25 @ 13:31 by NAIF Ordoñez) H/O ligation of vein History of carpal tunnel surgery Hx of cholecystectomy History of tonsillectomy and adenoidectomy History of hysterectomy Gastric bypass status for obesity Social History Smoking Status: Never smoker alcohol intake: never substance use type: marijuana current occupational status: other Travel in the last 8 weeks?: None Have you lived/traveled outside [place] in past 30 days?: No Contact w/someone who lives/traveled outside [place] past 30 days?: No Exposure to someone with infectious disease in past 14 days?: No Do you have a fever (greater than 100.4 F or 38 C)?: No Have you tested positive for COVID-19?: No Exposed to someone with COVID-19 in past 14 days?: No Do you have a sore throat?: No Do you have a cough?: No Do you have any weakness?: No Do you have any diarrhea?: No Are you experiencing any unusual bleeding?: No Do you have any muscle aches/pain?: No Do you have any abdominal pain?: No Are you experiencing loss of taste or smell?: No Other Medical History Have you received the Flu Vaccine for this season: No Have you received the Pneumonia Vaccine: No ROS Obtained: Yes All systems reviewed & no additional complaints except as documented Physical Exam General General appearance: alert and in no apparent distress Head Head exam: atraumatic and normocephalic Eye Eye exam: Present normal appearance, PERRL and EOMI ENT ENT exam: Present normal oropharynx and normal external ear exam Neck Neck exam: Present normal inspection and full ROM Chest Chest inspection: Present normal inspection and symmetric chest wall rise; Absent tenderness Respiratory Respiratory exam: Present normal lung sounds bilaterally; Absent respiratory distress Cardiovascular Cardiovascular exam: Present regular rate and normal rhythm Abdominal Exam Abdominal exam: Present soft; Absent distention, tenderness or guarding Extremities Exam Extremities exam: Present normal inspection; Absent edema or joint swelling Back Exam Back exam: Present normal inspection; Absent tenderness Neurological Exam Neurological exam: Present alert and oriented X3; Absent motor sensory deficit Psychiatric Psychiatric exam: Present normal affect and normal mood Skin Skin exam: Present warm, dry and normal color Lymphatic Lymphatic Findings: no adenopathy Medical Decision Making Medical Records Medical records reviewed: Yes I reviewed the patient's medical records. Screening: Per USPSTF and CDC recommendations, given the prevalence of disease in our region, it is our hospital?s policy to screen for HIV and viral Hepatitis for all patients aged 18 and over and those with ongoing risk factors. Dejon Inquiry Pt receiving controlled substance: No Dejon was queried for this patient: No Vital Signs: 07/20/25 05:14 07/20/25 05:19 Temperature 98.9 F 98.5 F Temperature Source Oral Pulse Rate 55 L Pulse Rate [Right] 55 L Respiratory Rate 18 18 Blood Pressure 113/71 Blood Pressure [Right Arm] 113/71 Blood Pressure Mean [Right Arm] 85 02 Sat by Pulse Oximetry 100 100 Oxygen Delivery Method Room Air Room Air Lab Data Lab results reviewed: Yes I reviewed the patient's lab results. Lab Results 07/20/25 05:35: Urine Color Straw, Urine Appearance Slightly cloudy, Urine pH 6.0, Ur Specific Rarden >= 1.030, Urine Protein 2+ A, Urine Glucose (UA) Negative, Urine Ketones Negative, Urine Blood 3+ A, Urine Nitrate Negative, Urine Bilirubin Negative, Urine Urobilinogen 0.2, Ur Leukocyte Esterase 2+ A Orders (Tests/Meds): ORDERS Category Date Time Status UA [Urinalysis and Microscopic] Stat Lab 07/20/25 05:35 Results Urine Chlam/Gono/Trich (H) Stat Lab 07/20/25 05:35 Received Urine Culture Stat Micro 07/20/25 05:35 Received Medical Decision Narrative: 40-year-old female presents for urinary urgency, frequency, dysuria. History was obtained via interactive discussion with patient, chart review. On arrival, patient is [afebrile, hemodynamically stable, satting appropriately, alert, oriented x4, GCS 15], moving all extremities spontaneously. Full physical exam performed and significant for no significant physical exam abnormalities. Differential includes but is not limited to UTI, pyelonephritis, kidney stone. No flank pain to suggest kidney stone or pyelonephritis. Workup initiated including urinalysis. On re-evaluation, patient [remains afebrile, HD stable.] Laboratory workup independently interpreted by me and significant for urinalysis consistent with UTI. She was initiated on treatment for UTI. Discharged with Bactrim. Procedures Risk/Benefits of Procedure(s) Were Explained: Yes Critical Care Critical Care Time Critical Care Time: No
[2025-07-20 05:41] LABS: Microscopic, Urine URINE MICROSCOPIC (MICROSCOPIC)
[2025-07-20 05:42] LABS: Bilirubin,Urine Negative (Negative); Glucose,Urine (UA) Negative (Negative); Ketones,Urine Negative (Negative); Leukocyte Esterase,Urine 2+ (Negative); PH,Urine 6.0 (5.0-8.5); Protein,Urine 2+ (Negative); Specific Gravity, Urine >= 1.030 (1.005-1.030); Urobilinogen,Urine 0.2 EU/dl (0.2)
[2025-07-20 05:48] LABS: Color,Urine Straw (Yellow)
[2025-07-20 06:02] LABS: Bacteria,Urine 1+ /lpf; Mucus,Urine 1+ /lpf; RBC,Urine TNTC #/hpf (0-3); WBC,Urine 20-50 #/hpf (0-3)
[2025-07-20 06:12] VITALS: BP 120/77; PULSE 52; RESP 16; TEMP 37.2; O2SAT 100
[2025-07-20] MEDS: SULFA/TRIMETHOPRIM 1 TABLET 1 EACH PO (06:15)
== END 2025-07-20 06:17 | disposition home or self-care (01) ==
PROVIDERS: Emergency Provider Emergency Medicine; PCP Nurse Practitioner Family
DX: N30.01 Acute cystitis with hematuria (principal); R30.0 Dysuria; R35.0 Frequency of micturition; R39.15 Urgency of urination
CPT/HCPCS: 81001; 87086; 87491; 87591; 87661; 99283